=== PATIENT | female | born 1950 | race Caucasian/White ===

== ENCOUNTER → 2018-02-05 | Outpatient (CLI) | payer OTHER | LOC: M PLARAD 14:23 | DX: R91.1 Solitary pulmonary nodule (principal) | CPT/HCPCS: 78815 ==

== ENCOUNTER → 2018-02-07 | Outpatient (REF) | payer OTHER | LOC: M LAB REF 13:15 | DX: H02.834 Dermatochalasis of left upper eyelid (principal); H02.831 Dermatochalasis of right upper eyelid | CPT/HCPCS: 88302 ==

== ENCOUNTER → 2021-10-16 | Outpatient (REF) | payer MEDICARE ==
[~2021-10-16] MED LIST: ALDA25TA2 PO; ALPH600C PO; ANOR1AER INH; ASPI-546 PO; ATEN100T; ATEN50TA2 PO; ATOR1TAB21 PO; CALC500T21 PO; CALC600T31 PO; CARV6.25 PO; CHLO125TA PO; D3 A1000 PO; DILT1CAP5; DILT1CAP5 PO; FARX1TAB3 PO; GABA600T4; GABA600T4 PO; GLIP10TA6 PO; HYDR12.55 PO; HYDR50TAB PO; LISI10TA22 PO; LISI40TA4; LISI40TA4 PO; LOVA40TA; LOVA40TA PO; METF-414 PO; METF-838; NAPR-855 PO; OMEP1CAP73 PO; PRIL20TA2; VITA500046 PO
== END ==
LOC: M LAB REF 17:24
PROVIDERS: ATTEND Internal Medicine Nephrology
DX: E83.42 Hypomagnesemia (principal)

== ENCOUNTER → 2023-02-01 | Outpatient (CLI) | payer MEDICARE ==
[~2023-02-01] MED LIST changes: +AMLO2.5T3 PO; +ATOR40TA75 PO; +CALCTAB89 PO; +CARV25TA PO; +ERGO500029 PO; +GABA-282 PO; +HOME MED LIST COMPLETE! XX SCH; +LIDOCAINE 1% MDV 20ML VIAL As Ordered ONE; +LISI20TA33 PO; +METF-838 PO; +NOXI1TAB PO; +ONDA4TAB6 SL; +OXYC1TAB23 PO; +PIOG1TAB36 PO; +SPIR-10 PO
[2023-02-01 12:05] VITALS: BP 116/51
== END ==
LOC: M IRPRO 07:31
PROVIDERS: ATTEND Specialist
DX: C78.01 Secondary malignant neoplasm of right lung (principal); R91.1 Solitary pulmonary nodule

== ENCOUNTER → 2023-03-11 | Outpatient (CLI) | payer MEDICARE ==
[~2023-03-11] MED LIST changes: -DILT1CAP5; -DILT1CAP5 PO; +DILT240C41; +DILT240C41 PO; -HOME MED LIST COMPLETE! XX SCH; -LIDOCAINE 1% MDV 20ML VIAL As Ordered ONE; +PROC10TA5 PO
== END ==
LOC: M PLARAD 12:35
PROVIDERS: ATTEND Internal Medicine Medical Oncology
DX: R91.8 Other nonspecific abnormal finding of lung field (principal)
CPT/HCPCS: 78815; A9552

== ENCOUNTER → 2023-04-19 | Outpatient (CLI) | payer MEDICARE ==
[~2023-04-19] VITALS: Ht 160 cm; Wt 71.8 kg
[~2023-04-19] MED LIST changes: +AMLO1TAB25 PO; +CALC-211 PO; +CARV12.5 PO; +LEVO1TAB40 PO; +LIDOCAINE 1% MDV 20ML VIAL As Ordered ONE; +MIDAZOLAM INJ 2MG/2ML VIAL As Ordered ONE; +NS 1,000 ML IV SCH; +VANCOMYCIN 1000MG/20ML VIAL As Ordered ONE; +VANCOMYCIN HCL 1,000 MG, VIAL MATE ADAPTER 1 EACH in NS 250 ML IV ONE; +diphenhydrAMINE 50MG/ML VIAL As Ordered ONE; +fentaNYL 100 MCG/2 ML INJECTION As Ordered ONE
[2023-04-19 08:00] VITALS: TEMP 98.4
[2023-04-19 11:00] VITALS: BP 92/53; O2SAT 95
== END ==
LOC: M IRPRO 07:38
PROVIDERS: ATTEND Internal Medicine Medical Oncology
DX: C25.9 Malignant neoplasm of pancreas, unspecified (principal)
CPT/HCPCS: 36561; 99152; 99153; C1769; C1788; C1894; J2250; J3010

== ENCOUNTER 2023-04-23 13:10 | Inpatient (IN) | payer MEDICARE ==
[~2023-04-23] VITALS: Ht 160 cm; Wt 71.8 kg
[2023-04-23] VITALS (10 sets, daily range): BP systolic 94–117; BP diastolic 51–61; TEMP 97.6–97.8; O2SAT 90–100
[~2023-04-23 13:10] MED LIST changes: -AMLO1TAB25 PO; -CALC-211 PO; -CARV12.5 PO; -LEVO1TAB40 PO; -LIDOCAINE 1% MDV 20ML VIAL As Ordered ONE; -MIDAZOLAM INJ 2MG/2ML VIAL As Ordered ONE; -NS 1,000 ML IV SCH; -VANCOMYCIN 1000MG/20ML VIAL As Ordered ONE; -VANCOMYCIN HCL 1,000 MG, VIAL MATE ADAPTER 1 EACH in NS 250 ML IV ONE; -diphenhydrAMINE 50MG/ML VIAL As Ordered ONE; -fentaNYL 100 MCG/2 ML INJECTION As Ordered ONE
[2023-04-23] MEDS ORDERED: NS 2,150 ML in IV 1 EA IV ONE (14:15)
[2023-04-23 14:41] LABS: ABG BASE EXCESS -4.7 (-2.0-2.0); ABG HCO3 19.8 MMOL/L (22.0-26.0); ABG O2 SATURATION 95.5 % (95.0-99.0); ABG PARTIAL PRESSURE CO2 33.9 mmHg (35.0-45.0); ABG PARTIAL PRESSURE O2 88.6 mmHg (75.0-100.0); ABG STANDARD HCO3 20.5 MMOL/L. (22.0-26.0); ABG TOTAL CO2 20.8 MMOL/L (23.0-31.0); ABG pH (ARTERIAL) 7.384 UNITS (7.350-7.450)
[2023-04-23 14:49] LABS: HEMATOCRIT 23.5 % (36.0-47.0); HEMOGLOBIN 7.8 g/dl (12.0-15.5); MEAN CORPUSCULAR HEMOGLOBIN 31.7 pg (27.0-33.0); MEAN CORPUSCULAR HGB CONC 33.2 g/dl (32.0-36.5); MEAN CORPUSCULAR VOLUME 95.5 fl (80.0-96.0); RED BLOOD COUNT 2.46 10^6/uL (4.00-5.40); WHITE BLOOD COUNT 1.2 10^3/uL (4.0-10.0)
[2023-04-23 14:59] LABS: INR 1.05; PARTIAL THROMBOPLASTIN TIME 29.6 SECONDS (24.8-34.2); PROTHROMBIN TIME 13.9 SECONDS (12.5-14.5)
[2023-04-23 15:03] LABS: PLATELET COUNT, AUTOMATED 40 10^3/uL (150-450)
[2023-04-23 15:19] LABS: ALBUMIN 2.5 G/DL (3.2-5.2); ALKALINE PHOSPHATASE 56 U/L (46-116); ALT/SGPT 21 U/L (7.0-40); AMYLASE 35 U/L (30-118); AST/SGOT 11 U/L (<34); BILIRUBIN,DIRECT 0.2 MG/DL (<0.4); BILIRUBIN,TOTAL 0.4 MG/DL (0.3-1.2); BLOOD UREA NITROGEN 39 MG/DL (9-23); CALCIUM LEVEL 8.1 MG/DL (8.3-10.6); CARBON DIOXIDE LEVEL 23 MMOL/L (20-31); CHLORIDE LEVEL 107 MMOL/L (98-107); CK-MB VALUE MASS < 1.0 NG/ML (<3.6); CPK CREATINE PHOSPHOKINASE 32 U/L (34-145); CREATININE FOR GFR 1.95 MG/DL (0.55-1.30); GLOMERULAR FILTRATION RATE 26.8 (>39); GLUCOSE, FASTING 185 MG/DL (74-106); MB/CK RELATIVE INDEX 3.12 (< OR =4); SODIUM LEVEL 139 MMOL/L (136-145); TOTAL PROTEIN 5.2 G/DL (5.7-8.2)
[2023-04-23 15:27] LABS: ANISOCYTOSIS 1+; ATYPICAL LYMPH 4 % (0-5); EOSINOPHILS 3 % (0-3); LYMPHOCYTES 27 % (16-44); MONOCYTES 4 % (0-5); NEUTROPHILS 59 % (28-66); PLATELET ESTIMATE DECREASED (NORMAL)
[2023-04-23 15:28] LABS: RSV AMPLIFICATION NEGATIVE (NEGATIVE)
[2023-04-23] MEDS ORDERED: PIPERACILLIN/TAZOBACTAM SOD 4.5 GM in D5W MINI-BAG PLUS 50 ML IV ONE (15:35)
[2023-04-23 16:12] LABS: APPEARANCE, URINE HAZY (CLEAR); BACTERIA, URINE AUTO 2+ (NEGATIVE); BILIRUBIN, URINE AUTO NEGATIVE (NEGATIVE); BLOOD, URINE BLOOD 1+ (NEGATIVE); COLOR, URINE YELLOW (YELLOW); GLUCOSE, URINE (UA) AUTO NEGATIVE (NEGATIVE); KETONE, URINE AUTO NEGATIVE (NEGATIVE); LEUKOCYTE ESTERASE, URINE AUTO NEGATIVE (NEGATIVE); NITRITE, URINE AUTO NEGATIVE (NEGATIVE); PROTEIN, URINE AUTO NEGATIVE (NEGATIVE); RBC, URINE AUTO 0 /HPF (0-3); SPECIFIC GRAVITY URINE AUTO 1.012 (1.002-1.035); SQUAMOUS EPITHELIAL CELL UR AU 1 /HPF (0-6); UROBILINOGEN, URINE AUTO 0.2 mg/dL (0.0-2.0); WBC, URINE AUTO 2 /HPF (0-3)
[2023-04-23] MEDS ORDERED: NOREPINEPHRINE 4MG IN D5 250ML 4 MG in IV 1 EA IV SCH ×2 (17:10)
[2023-04-23] MEDS ORDERED: ALBUTEROL SULFATE 2.5MG/0.5ML INH NEB SOLN NEB PRN (17:10)
[2023-04-23] MEDS ORDERED: LR 1,000 ML IV ONE ×2 (17:10→17:15)
[2023-04-23] MEDS ORDERED: DEXTROSE 50% 50ML SYRINGE IV PRN (17:15)
[2023-04-23] MEDS ORDERED: PIPERACILLIN/TAZOBACTAM SOD 3.375 GM in D5W MINI-BAG PLUS 50 ML IV SCH (17:15)
[2023-04-23] MEDS ORDERED: GLUCOSE 4GM CHEW TABLET PO PRN (17:15)
[2023-04-23] MEDS ORDERED: GLUCAGON INJ 1MG VIAL SC PRN (17:15)
[2023-04-23] MEDS ORDERED: CARV12.5 PO (17:49)
[2023-04-23] MEDS ORDERED: CALC-211 PO (17:49)
[2023-04-23] MEDS ORDERED: HOME MED LIST COMPLETE! XX SCH (17:55)
[2023-04-23] MEDS ORDERED: SODIUM CHLORIDE 0.9% INJ 10 ML SYR IV PRN (18:35)
[2023-04-23] MEDS: HYDROCORTISONE 100MG/2ML VIAL IV SCH (22:00)
[2023-04-23] MEDS: PIPERACILLIN/TAZOBACTAM SOD 4.5 GM in D5W MINI-BAG PLUS 50 ML IV SCH (23:57)
[2023-04-24] VITALS (23 sets, daily range): BP systolic 99–148; BP diastolic 51–74; TEMP 97.6–99.3; O2SAT 93–98
[2023-04-24] MEDS: HYDROCORTISONE 100MG/2ML VIAL IV SCH ×2 (01:05→07:44)
[2023-04-24 04:27] LABS: HEMOGLOBIN 7.7 g/dl (12.0-15.5); LYMPH # 0.2 10^3/uL (1.5-5.0); LYMPH % 18.4 % (24.0-44.0); MEAN CORPUSCULAR HEMOGLOBIN 32.1 pg (27.0-33.0); MEAN CORPUSCULAR HGB CONC 33.5 g/dl (32.0-36.5); MEAN CORPUSCULAR VOLUME 95.8 fl (80.0-96.0); MONO # 0.1 10^3/uL (0.0-0.8); MONO % 9.2 % (2.0-8.0); NEUTROPHILS % 65.3 % (36.0-66.0)
[2023-04-24 04:29] LABS: NEUTROPHILS # 0.6 10^3/uL (1.5-8.5); PLATELET COUNT, AUTOMATED 32 10^3/uL (150-450)
[2023-04-24 04:36] LABS: INR 1.05; PROTHROMBIN TIME 13.9 SECONDS (12.5-14.5)
[2023-04-24 04:55] LABS: ALBUMIN 2.3 G/DL (3.2-5.2); BILIRUBIN,TOTAL 0.3 MG/DL (0.3-1.2); CALCIUM LEVEL 7.7 MG/DL (8.3-10.6); CREATININE FOR GFR 1.34 MG/DL (0.55-1.30); GLOMERULAR FILTRATION RATE 41.3 (>39); MAGNESIUM LEVEL 1.2 MG/DL (1.8-2.4); PHOSPHORUS LEVEL 2.9 MG/DL (2.4-5.1); POTASSIUM SERUM 4.6 MMOL/L (3.5-5.1); TOTAL PROTEIN 4.8 G/DL (5.7-8.2)
[2023-04-24] MEDS: MAG SULF 1GM/100ML (MAG RUN) 1 GM in IV 1 EA IV SCH ×3 (05:35→07:44)
[2023-04-24] MEDS: PIPERACILLIN/TAZOBACTAM SOD 4.5 GM in D5W MINI-BAG PLUS 50 ML IV SCH ×3 (06:18→17:33)
[2023-04-24] MEDS: ADVAIR HFA 230/21MCG INHALER INH SCH ×2 (08:00→20:14)
[2023-04-24] MEDS: SODIUM CHLORIDE 0.9% INJ 10 ML SYR IV SCH (08:22)
[2023-04-24] MEDS ORDERED: PANTOPRAZOLE 40MG VIAL IV SCH (09:00)
[2023-04-24] MEDS ORDERED: PERCOCET 5MG/325MG TAB PO PRN (09:40)
[2023-04-24] MEDS: GABAPENTIN 300 MG CAP PO SCH ×3 (10:11→21:13)
[2023-04-24] MEDS: INSULIN LISPRO (NovoLOG) PER UNIT SC SCH (17:33)
[2023-04-24] MEDS ORDERED: LevoFLOXacin 750 MG TABLET PO SCH (18:00)
[2023-04-24] MEDS ORDERED: ATORVASTATIN 20 MG TAB PO SCH (21:00)
[2023-04-24] MEDS ORDERED: INSULIN LISPRO (NovoLOG) PER UNIT SC SCH (21:00)
[2023-04-24] MEDS ORDERED: ASPIRIN 81MG ENTERIC TABLET PO SCH (21:00)
[2023-04-25 04:28] VITALS: BP 149/65; TEMP 98.1; O2SAT 97
[2023-04-25 05:12] LABS: HEMATOCRIT 23.1 % (36.0-47.0); HEMOGLOBIN 7.8 g/dl (12.0-15.5); MEAN CORPUSCULAR HEMOGLOBIN 31.7 pg (27.0-33.0); MEAN CORPUSCULAR HGB CONC 33.8 g/dl (32.0-36.5); MEAN CORPUSCULAR VOLUME 93.9 fl (80.0-96.0); PLATELET COUNT, AUTOMATED 46 10^3/uL (150-450); RED BLOOD COUNT 2.46 10^6/uL (4.00-5.40); WHITE BLOOD COUNT 2.7 10^3/uL (4.0-10.0)
[2023-04-25 05:28] LABS: ATYPICAL LYMPH 2 % (0-5); EOSINOPHILS 3 % (0-3); LYMPHOCYTES 47 % (16-44); METAMYELOCYTES 1 % (0-0); MONOCYTES 9 % (0-5); NEUTROPHILS 37 % (28-66); PLATELET ESTIMATE DECREASED (NORMAL); POLYCHROMASIA 1+
[2023-04-25 05:44] LABS: CALCIUM LEVEL 8.9 MG/DL (8.3-10.6); CREATININE FOR GFR 1.22 MG/DL (0.55-1.30); POTASSIUM SERUM 3.5 MMOL/L (3.5-5.1)
[2023-04-25 06:58] LABS: MAGNESIUM LEVEL 1.6 MG/DL (1.8-2.4)
[2023-04-25] MEDS: INSULIN LISPRO (NovoLOG) PER UNIT SC SCH (07:30)
[2023-04-25 08:00] VITALS: BP 140/65; TEMP 98; O2SAT 96
[2023-04-25] MEDS: ADVAIR HFA 230/21MCG INHALER INH SCH (08:14)
[2023-04-25] MEDS ORDERED: MAGNESIUM OXIDE 400MG TAB (MAG-OX) PO SCH (09:00)
[2023-04-25] MEDS ORDERED: OMEPRAZOLE 20MG CAP PO SCH (09:00)
[2023-04-25] MEDS: SODIUM CHLORIDE 0.9% INJ 10 ML SYR IV SCH (09:00)
[2023-04-25] MEDS: GABAPENTIN 300 MG CAP PO SCH (09:19)
[2023-04-25] MEDS ORDERED: LEVO1TAB40 PO ×2 (10:35→10:41)
[2023-04-25] MEDS ORDERED: CARV25TA PO (10:37)
[2023-04-25] MEDS ORDERED: AMLO1TAB25 PO (10:38)
[2023-04-28] MEDS ORDERED: VITAMIN D 50,000 UNITS CAPSULE (ERGOCALCIFEROL 1.25MG) PO SCH (09:00)
== END 2023-04-25 11:40 | disposition home or self-care (01) | DRG 871 ==
LOC: M ED 13:10 → M ICU 17:10 → ENRESERV 17:16
PROVIDERS: ADMIT Internal Medicine Critical Care Medicine; ATTEND Student in an Organized Health Care Education/Training Program
DX: A41.9 Sepsis, unspecified organism (principal); R65.21 Severe sepsis with septic shock; R57.1 Hypovolemic shock; D61.810 Antineoplastic chemotherapy induced pancytopenia; N17.9 Acute kidney failure, unspecified; C25.9 Malignant neoplasm of pancreas, unspecified; I10 Essential (primary) hypertension; E55.9 Vitamin D deficiency, unspecified; G89.29 Other chronic pain; E83.42 Hypomagnesemia; J44.9 Chronic obstructive pulmonary disease, unspecified; K21.9 Gastro-esophageal reflux disease without esophagitis; E78.5 Hyperlipidemia, unspecified; E11.9 Type 2 diabetes mellitus without complications; T45.1X5A Adverse effect of antineoplastic and immunosuppressive drugs, initial encounter; Z88.2 Allergy status to sulfonamides; Z88.5 Allergy status to narcotic agent; Z88.1 Allergy status to other antibiotic agents; Z79.82 Long term (current) use of aspirin; Z79.84 Long term (current) use of oral hypoglycemic drugs; Z79.899 Other long term (current) drug therapy

== ENCOUNTER → 2023-07-11 | Outpatient (CLI) | payer MEDICARE, MEDICAID ==
[~2023-07-11] MED LIST changes: +AMLO1TAB25 PO; +AMLO2.5T3; +ANOR1AER PO; +CALC-211 PO; +CARV12.5 PO; +CHOL50003 PO; +LEVO1TAB40 PO; +SPIR-10
== END ==
LOC: M RAD 13:32
PROVIDERS: ATTEND Internal Medicine Medical Oncology
DX: M79.621 Pain in right upper arm (principal)

== ENCOUNTER → 2023-10-15 | Outpatient (REF) | payer MEDICARE, MEDICAID ==
[~2023-10-15] MED LIST changes: +CIPR-249 PO; +CIPR500T39; +DIFI200T PO; +METR-265
== END ==
LOC: M LAB REF 12:05
PROVIDERS: ATTEND Internal Medicine Medical Oncology
DX: A04.72 Enterocolitis due to Clostridium difficile, not specified as recurrent (principal)

== ENCOUNTER → 2023-11-22 | Outpatient (REF) | payer MEDICARE, MEDICAID ==
[~2023-11-22] MED LIST changes: +POTA8CAP10 PO; -SPIR-10
== END ==
LOC: M LAB REF 10:48
PROVIDERS: ATTEND Internal Medicine Medical Oncology
DX: A04.72 Enterocolitis due to Clostridium difficile, not specified as recurrent (principal); R19.7 Diarrhea, unspecified

== ENCOUNTER → 2023-12-19 | Outpatient (REF) | payer MEDICARE, MEDICAID | LOC: M SFHCPLAZ 13:32 | PROVIDERS: ATTEND Internal Medicine Infectious Disease | DX: A04.71 Enterocolitis due to Clostridium difficile, recurrent (principal) ==

== ENCOUNTER → 2024-01-17 | Outpatient (REF) | payer MEDICARE, MEDICAID ==
[~2024-01-17] MED LIST changes: +FAMO40TA3 PO
== END ==
LOC: M LAB REF 09:43
PROVIDERS: ATTEND Internal Medicine Medical Oncology
DX: R19.7 Diarrhea, unspecified (principal); A04.72 Enterocolitis due to Clostridium difficile, not specified as recurrent

== ENCOUNTER → 2024-09-08 | Outpatient (CLI) | payer MEDICARE ==
[~2024-09-08] MED LIST changes: +BASA100I SC; +GABA-1172 PO; +GABA-1490; +GABA-1490 PO; -GABA-282 PO; -GABA600T4; -GABA600T4 PO; +GLIP10TA15 PO; -GLIP10TA6 PO; +MAGICMW SSP; +MORP20SO PO; +ONDA-282 SL; -ONDA4TAB6 SL; +PERCOCET PO; +POTA-298 PO; +TORS20TA2 PO
== END ==
LOC: M PLARAD 09:44
PROVIDERS: ATTEND Internal Medicine Medical Oncology
DX: C25.8 Malignant neoplasm of overlapping sites of pancreas (principal)
CPT/HCPCS: 78815; A9552

== ENCOUNTER → 2025-01-05 | Outpatient (CLI) | payer MEDICARE, MEDICAID ==
[~2025-01-05] MED LIST changes: +ORAL0.1P MT; +XARE15TA PO; +XARE20TA PO
== END ==
LOC: M PLARAD 12:48
PROVIDERS: ATTEND Nurse Practitioner Women's Health
DX: C25.9 Malignant neoplasm of pancreas, unspecified (principal); C78.01 Secondary malignant neoplasm of right lung; C78.02 Secondary malignant neoplasm of left lung
CPT/HCPCS: 78815; A9552

== ENCOUNTER → 2025-01-28 | Outpatient (CLI) | payer MEDICARE, MEDICAID | LOC: M ONCR 07:36 | PROVIDERS: ATTEND General Practice | DX: C25.2 Malignant neoplasm of tail of pancreas (principal); C78.01 Secondary malignant neoplasm of right lung; C78.02 Secondary malignant neoplasm of left lung; G89.3 Neoplasm related pain (acute) (chronic); Z92.21 Personal history of antineoplastic chemotherapy; Z85.41 Personal history of malignant neoplasm of cervix uteri; Z90.49 Acquired absence of other specified parts of digestive tract; Z90.710 Acquired absence of both cervix and uterus; Z80.0 Family history of malignant neoplasm of digestive organs; Z87.891 Personal history of nicotine dependence; Z88.1 Allergy status to other antibiotic agents; Z88.2 Allergy status to sulfonamides; Z88.5 Allergy status to narcotic agent; Z79.01 Long term (current) use of anticoagulants; Z79.4 Long term (current) use of insulin; Z79.82 Long term (current) use of aspirin; Z79.84 Long term (current) use of oral hypoglycemic drugs; Z79.899 Other long term (current) drug therapy ==

== ENCOUNTER 2025-02-05 08:08 | Outpatient (RCR) | payer MEDICARE, MEDICAID | END 2025-02-08 | LOC: M ONCR 08:08 | PROVIDERS: ATTEND General Practice | DX: Z51.0 Encounter for antineoplastic radiation therapy (principal); C25.2 Malignant neoplasm of tail of pancreas ==

== ENCOUNTER 2025-03-01 13:15 | Outpatient (RCR) | payer MEDICARE, MEDICAID ==
[~2025-03-01 13:15] MED LIST changes: +CLOT1CRE56 TOP; +MUPI2OI TOP
== END 2025-03-10 ==
LOC: M ONCR 13:15
PROVIDERS: ATTEND General Practice
DX: Z51.0 Encounter for antineoplastic radiation therapy (principal); C25.2 Malignant neoplasm of tail of pancreas

== ENCOUNTER → 2025-03-24 | Outpatient (CLI) | payer MEDICARE, MEDICAID ==
[~2025-03-24] VITALS: Ht 160 cm; Wt 65.4 kg
[~2025-03-24] MED LIST changes: -ALPH600C PO; +ALPH600C2 PO; +DULO30CA9 PO; +OXYC10TA12 PO
[2025-03-24 10:48] VITALS: BP 146/87; O2SAT 96
== END ==
LOC: M PAL 10:30
PROVIDERS: ATTEND Physician Assistant
DX: Z51.5 Encounter for palliative care (principal); Z66 Do not resuscitate; C25.9 Malignant neoplasm of pancreas, unspecified; C78.00 Secondary malignant neoplasm of unspecified lung; R52 Pain, unspecified; Z79.891 Long term (current) use of opiate analgesic; Z88.2 Allergy status to sulfonamides; Z88.5 Allergy status to narcotic agent; Z79.899 Other long term (current) drug therapy; Z79.85 Long-term (current) use of injectable non-insulin antidiabetic drugs

== ENCOUNTER → 2025-06-04 | Outpatient (CLI) | payer MEDICARE, MEDICAID ==
[~2025-06-04] MED LIST changes: +CEPH500T PO; +LISI40TA10; +LISI40TA10 PO; -LISI40TA4; -LISI40TA4 PO; +SENN-186 PO
== END ==
LOC: M ONCR 10:01
PROVIDERS: ATTEND General Practice
DX: C25.2 Malignant neoplasm of tail of pancreas (principal); C78.00 Secondary malignant neoplasm of unspecified lung; E09.9 Drug or chemical induced diabetes mellitus without complications; Z79.01 Long term (current) use of anticoagulants; Z79.4 Long term (current) use of insulin; Z79.82 Long term (current) use of aspirin; Z79.891 Long term (current) use of opiate analgesic; Z79.899 Other long term (current) drug therapy; Z87.891 Personal history of nicotine dependence; Z88.1 Allergy status to other antibiotic agents; Z88.2 Allergy status to sulfonamides; Z88.5 Allergy status to narcotic agent; Z92.21 Personal history of antineoplastic chemotherapy; Z92.3 Personal history of irradiation

== ENCOUNTER → 2025-06-07 | Outpatient (CLI) | payer MEDICARE, MEDICAID | LOC: M PAL 12:54 | PROVIDERS: ATTEND Physician Assistant | DX: Z51.5 Encounter for palliative care (principal); Z66 Do not resuscitate; C78.00 Secondary malignant neoplasm of unspecified lung; Z79.891 Long term (current) use of opiate analgesic; Z79.82 Long term (current) use of aspirin; Z79.02 Long term (current) use of antithrombotics/antiplatelets; Z79.899 Other long term (current) drug therapy; Z88.2 Allergy status to sulfonamides; Z88.5 Allergy status to narcotic agent ==

== ENCOUNTER → 2025-06-15 | Outpatient (CLI) | payer MEDICARE, MEDICAID | LOC: M PLARAD 14:31 | PROVIDERS: ATTEND General Practice | DX: C25.2 Malignant neoplasm of tail of pancreas (principal) | CPT/HCPCS: 78815; A9552 ==

== ENCOUNTER → 2025-06-30 | Outpatient (CLI) | payer MEDICARE, MEDICAID ==
[~2025-06-30] VITALS: Ht 160 cm; Wt 62.0 kg
[2025-06-30 11:43] VITALS: BP 148/89; O2SAT 94
== END ==
LOC: M PAL 11:28
PROVIDERS: ATTEND Physician Assistant
DX: Z51.5 Encounter for palliative care (principal); Z66 Do not resuscitate; C25.9 Malignant neoplasm of pancreas, unspecified; C78.00 Secondary malignant neoplasm of unspecified lung; Z79.891 Long term (current) use of opiate analgesic; Z88.2 Allergy status to sulfonamides; Z88.5 Allergy status to narcotic agent; Z79.899 Other long term (current) drug therapy; Z79.82 Long term (current) use of aspirin; Z79.02 Long term (current) use of antithrombotics/antiplatelets

== ENCOUNTER 2025-07-01 07:56 | Outpatient (RCR) | payer MEDICARE, MEDICAID ==
[2023-01-18 09:50] VITALS: BP 102/76; O2SAT 97
[2023-01-18 11:35] LABS: BASO # 0.0 10^3/uL (0.0-0.2); BASO % 0.6 % (0.0-1.0); EOS # 0.1 10^3/uL (0.0-0.5); EOS % 1.4 % (0.0-3.0); LYMPH # 1.3 10^3/uL (1.5-5.0); LYMPH % 18.4 % (24.0-44.0); MONO # 0.6 10^3/uL (0.0-0.8); MONO % 8.0 % (2.0-8.0); NEUTROPHILS # 5.1 10^3/uL (1.5-8.5); NEUTROPHILS % 70.9 % (36.0-66.0); PLATELET COUNT, AUTOMATED 162 10^3/uL (150-450)
[2023-01-18 11:45] LABS: INR 0.97
[2023-01-18 12:14] LABS: ALT/SGPT 18.0 U/L (7.0-40); AST/SGOT 14.0 U/L (<34); CALCIUM LEVEL 9.5 MG/DL (8.3-10.6); CARBON DIOXIDE LEVEL 29.0 MMOL/L (20-31); CHLORIDE LEVEL 103.0 MMOL/L (98-107); CREATININE FOR GFR 1.63 MG/DL (0.55-1.30); GLOMERULAR FILTRATION RATE 32.9 (>39); POTASSIUM SERUM 4.8 MMOL/L (3.5-5.1); SODIUM LEVEL 138.0 MMOL/L (136-145)
[2023-01-18 12:22] LABS: CA19-9 TUMOR MARKER,CARBOHYDRA 97.7 U/ML (<35.0)
[2023-02-15 13:53] VITALS: BP 132/66; O2SAT 97
[2023-02-15 15:48] LABS: CA19-9 TUMOR MARKER,CARBOHYDRA 111.9 U/ML (<35.0)
[2023-03-04 10:10] VITALS: BP 133/66; O2SAT 99
[2023-03-04 10:19] LABS: BASO # 0.0 10^3/uL (0.0-0.2); BASO % 0.6 % (0.0-1.0); EOS # 0.1 10^3/uL (0.0-0.5); EOS % 1.5 % (0.0-3.0); LYMPH # 1.1 10^3/uL (1.5-5.0); LYMPH % 15.9 % (24.0-44.0); MONO # 0.6 10^3/uL (0.0-0.8); MONO % 8.3 % (2.0-8.0); NEUTROPHILS # 4.9 10^3/uL (1.5-8.5); NEUTROPHILS % 73.1 % (36.0-66.0); PLATELET COUNT, AUTOMATED 126 10^3/uL (150-450)
[2023-03-04 10:40] LABS: ALT/SGPT 17.0 U/L (7.0-40); AST/SGOT 12.0 U/L (<34); CALCIUM LEVEL 9.1 MG/DL (8.3-10.6); CARBON DIOXIDE LEVEL 29.0 MMOL/L (20-31); CHLORIDE LEVEL 106.0 MMOL/L (98-107); CREATININE FOR GFR 1.29 MG/DL (0.55-1.30); GLOMERULAR FILTRATION RATE 43.1 (>39); POTASSIUM SERUM 4.6 MMOL/L (3.5-5.1); SODIUM LEVEL 138.0 MMOL/L (136-145)
[2023-03-12 11:27] LABS: BASO # 0.0 10^3/uL (0.0-0.2); BASO % 0.5 % (0.0-1.0); EOS # 0.1 10^3/uL (0.0-0.5); EOS % 1.3 % (0.0-3.0); LYMPH # 1.3 10^3/uL (1.5-5.0); LYMPH % 20.6 % (24.0-44.0); MONO # 0.5 10^3/uL (0.0-0.8); MONO % 7.5 % (2.0-8.0); NEUTROPHILS # 4.3 10^3/uL (1.5-8.5); NEUTROPHILS % 69.6 % (36.0-66.0); PLATELET COUNT, AUTOMATED 129 10^3/uL (150-450)
[2023-03-12 11:30] VITALS: BP 125/71; O2SAT 100
[2023-03-12 12:14] LABS: ALT/SGPT 15.0 U/L (7.0-40); AST/SGOT 13.0 U/L (<34); CALCIUM LEVEL 9.2 MG/DL (8.3-10.6); CARBON DIOXIDE LEVEL 27.0 MMOL/L (20-31); CHLORIDE LEVEL 109.0 MMOL/L (98-107); CREATININE FOR GFR 1.2 MG/DL (0.55-1.30); GLOMERULAR FILTRATION RATE 46.9 (>39); POTASSIUM SERUM 4.6 MMOL/L (3.5-5.1); SODIUM LEVEL 143.0 MMOL/L (136-145)
[2023-03-12] MEDS: PROCHLORPERAZINE 5MG TAB PO SCH (12:49)
[2023-03-12] MEDS: PACLITAXEL PROTEIN BOUND IV SCH (14:04)
[2023-03-12] MEDS: NS IV SCH (14:41)
[2023-03-12] MEDS: GEMCITABINE IV SCH (14:41)
[2023-03-12] MEDS: SODIUM CHLORIDE 0.9% INJ 10 ML SYR IV PRN (15:16)
[2023-03-18 14:28] LABS: BASO # 0.0 10^3/uL (0.0-0.2); BASO % 1.2 % (0.0-1.0); EOS # 0.0 10^3/uL (0.0-0.5); EOS % 1.2 % (0.0-3.0); LYMPH # 0.7 10^3/uL (1.5-5.0); LYMPH % 42.2 % (24.0-44.0); MONO # 0.1 10^3/uL (0.0-0.8); MONO % 4.0 % (2.0-8.0); NEUTROPHILS % 50.8 % (36.0-66.0); PLATELET COUNT, AUTOMATED 113 10^3/uL (150-450)
[2023-03-18 14:39] LABS: NEUTROPHILS # 0.9 10^3/uL (1.5-8.5)
[2023-03-18 14:56] LABS: ALT/SGPT 17 U/L (7.0-40); AST/SGOT < 8 U/L (<34); CALCIUM LEVEL 8.7 MG/DL (8.3-10.6); CARBON DIOXIDE LEVEL 25 MMOL/L (20-31); CHLORIDE LEVEL 106 MMOL/L (98-107); CREATININE FOR GFR 1.30 MG/DL (0.55-1.30); GLOMERULAR FILTRATION RATE 42.7 (>39); POTASSIUM SERUM 3.9 MMOL/L (3.5-5.1); SODIUM LEVEL 139 MMOL/L (136-145)
[2023-03-19 11:29] VITALS: BP 126/63; O2SAT 100
[2023-03-19 12:24] LABS: BASO # 0.0 10^3/uL (0.0-0.2); BASO % 1.1 % (0.0-1.0); EOS # 0.1 10^3/uL (0.0-0.5); EOS % 1.8 % (0.0-3.0); LYMPH # 0.9 10^3/uL (1.5-5.0); LYMPH % 32.8 % (24.0-44.0); MONO # 0.2 10^3/uL (0.0-0.8); MONO % 5.5 % (2.0-8.0); NEUTROPHILS # 1.6 10^3/uL (1.5-8.5); NEUTROPHILS % 57.7 % (36.0-66.0)
[2023-03-19 12:53] LABS: PLATELET COUNT, AUTOMATED 94 10^3/uL (150-450)
[2023-03-21 08:25] VITALS: BP 102/58; O2SAT 99
[2023-03-21 08:27] LABS: BASO # 0.0 10^3/uL (0.0-0.2); BASO % 0.9 % (0.0-1.0); EOS # 0.0 10^3/uL (0.0-0.5); EOS % 1.2 % (0.0-3.0); LYMPH # 0.9 10^3/uL (1.5-5.0); LYMPH % 26.0 % (24.0-44.0); MONO # 0.3 10^3/uL (0.0-0.8); MONO % 9.8 % (2.0-8.0); NEUTROPHILS # 2.1 10^3/uL (1.5-8.5); NEUTROPHILS % 59.2 % (36.0-66.0)
[2023-03-21 09:05] LABS: PLATELET COUNT, AUTOMATED 91 10^3/uL (150-450)
[2023-03-26 11:52] LABS: BASO # 0.0 10^3/uL (0.0-0.2); BASO % 0.8 % (0.0-1.0); EOS # 0.1 10^3/uL (0.0-0.5); EOS % 2.0 % (0.0-3.0); LYMPH # 1.1 10^3/uL (1.5-5.0); LYMPH % 27.2 % (24.0-44.0); MONO # 0.4 10^3/uL (0.0-0.8); MONO % 11.2 % (2.0-8.0); NEUTROPHILS # 2.3 10^3/uL (1.5-8.5); NEUTROPHILS % 57.3 % (36.0-66.0); PLATELET COUNT, AUTOMATED 186 10^3/uL (150-450)
[2023-03-26 12:16] VITALS: BP 137/66; O2SAT 100
[2023-03-26] MEDS: PROCHLORPERAZINE 5MG TAB PO SCH (12:24)
[2023-03-26] MEDS: PACLITAXEL PROTEIN BOUND IV SCH (13:53)
[2023-03-26] MEDS: GEMCITABINE IV SCH (14:35)
[2023-03-26] MEDS: NS IV SCH (14:35)
[2023-03-26] MEDS: SODIUM CHLORIDE 0.9% INJ 10 ML SYR IV PRN (15:13)
[2023-04-09 10:25] LABS: BASO # 0.0 10^3/uL (0.0-0.2); BASO % 0.4 % (0.0-1.0); EOS # 0.1 10^3/uL (0.0-0.5); EOS % 2.2 % (0.0-3.0); LYMPH # 0.8 10^3/uL (1.5-5.0); LYMPH % 15.3 % (24.0-44.0); MONO # 0.5 10^3/uL (0.0-0.8); MONO % 9.3 % (2.0-8.0); NEUTROPHILS # 3.9 10^3/uL (1.5-8.5); NEUTROPHILS % 72.1 % (36.0-66.0); PLATELET COUNT, AUTOMATED 102 10^3/uL (150-450)
[2023-04-09 10:59] LABS: ALT/SGPT 17.0 U/L (7.0-40); AST/SGOT 13.0 U/L (<34); CALCIUM LEVEL 8.4 MG/DL (8.3-10.6); CARBON DIOXIDE LEVEL 26.0 MMOL/L (20-31); CHLORIDE LEVEL 110.0 MMOL/L (98-107); CREATININE FOR GFR 1.17 MG/DL (0.55-1.30); GLOMERULAR FILTRATION RATE 48.3 (>39); POTASSIUM SERUM 4.4 MMOL/L (3.5-5.1); SODIUM LEVEL 143.0 MMOL/L (136-145)
[2023-04-09 11:14] VITALS: BP 139/70; O2SAT 99
[2023-04-09 12:42] LABS: CA19-9 TUMOR MARKER,CARBOHYDRA 100.9 U/ML (<35.0)
[2023-04-09] MEDS: PROCHLORPERAZINE 5MG TAB PO SCH (12:47)
[2023-04-09] MEDS: PACLITAXEL PROTEIN BOUND IV SCH (13:54)
[2023-04-09] MEDS: NS IV SCH (15:02)
[2023-04-09] MEDS: GEMCITABINE IV SCH (15:02)
[2023-04-16 11:08] VITALS: BP 123/67; O2SAT 100
[2023-04-16 11:10] LABS: BASO # 0.0 10^3/uL (0.0-0.2); BASO % 0.7 % (0.0-1.0); EOS # 0.0 10^3/uL (0.0-0.5); EOS % 0.3 % (0.0-3.0); LYMPH # 0.5 10^3/uL (1.5-5.0); LYMPH % 15.6 % (24.0-44.0); MONO # 0.1 10^3/uL (0.0-0.8); MONO % 4.8 % (2.0-8.0); NEUTROPHILS # 2.2 10^3/uL (1.5-8.5); NEUTROPHILS % 77.6 % (36.0-66.0); PLATELET COUNT, AUTOMATED 126 10^3/uL (150-450)
[2023-04-16 11:25] LABS: INR 0.97
[2023-04-16 11:39] LABS: ALT/SGPT 20.0 U/L (7.0-40); AST/SGOT 12.0 U/L (<34); CALCIUM LEVEL 9.1 MG/DL (8.3-10.6); CARBON DIOXIDE LEVEL 27.0 MMOL/L (20-31); CHLORIDE LEVEL 108.0 MMOL/L (98-107); CREATININE FOR GFR 1.16 MG/DL (0.55-1.30); GLOMERULAR FILTRATION RATE 48.8 (>39); POTASSIUM SERUM 4.7 MMOL/L (3.5-5.1); SODIUM LEVEL 140.0 MMOL/L (136-145)
[2023-04-16] MEDS: PROCHLORPERAZINE 5MG TAB PO SCH (12:30)
[2023-04-16] MEDS: PACLITAXEL PROTEIN BOUND IV SCH (13:14)
[2023-04-16] MEDS: NS IV SCH (14:16)
[2023-04-16] MEDS: GEMCITABINE IV SCH (14:16)
[2023-04-23 10:40] VITALS: BP 72/44; O2SAT 100
[2023-04-23 11:08] LABS: BASO # 0.0 10^3/uL (0.0-0.2); BASO % 0.9 % (0.0-1.0); EOS # 0.0 10^3/uL (0.0-0.5); EOS % 0.9 % (0.0-3.0); LYMPH # 0.3 10^3/uL (1.5-5.0); LYMPH % 25.5 % (24.0-44.0); MONO # 0.1 10^3/uL (0.0-0.8); MONO % 9.1 % (2.0-8.0); NEUTROPHILS % 61.8 % (36.0-66.0)
[2023-04-23] MEDS: NS 500 ML IV ONE (11:20)
[2023-04-23 11:30] VITALS: BP 62/38; O2SAT 96
[2023-04-23 11:38] LABS: NEUTROPHILS # 0.7 10^3/uL (1.5-8.5)
[2023-04-23 11:39] LABS: PLATELET COUNT, AUTOMATED 46 10^3/uL (150-450)
[2023-04-23 12:21] LABS: ALT/SGPT 12.0 U/L (7.0-40); AST/SGOT 13.0 U/L (<34); CALCIUM LEVEL 7.9 MG/DL (8.3-10.6); CARBON DIOXIDE LEVEL 23.0 MMOL/L (20-31); CHLORIDE LEVEL 107.0 MMOL/L (98-107); CREATININE FOR GFR 1.89 MG/DL (0.55-1.30); GLOMERULAR FILTRATION RATE 27.8 (>39); POTASSIUM SERUM 4.1 MMOL/L (3.5-5.1); SODIUM LEVEL 137.0 MMOL/L (136-145)
[2023-04-23 12:30] VITALS: BP 62/38
[2023-05-07 08:45] VITALS: BP 140/67; O2SAT 100
[2023-05-07 08:49] LABS: BASO # 0.1 10^3/uL (0.0-0.2); BASO % 1.2 % (0.0-1.0); EOS # 0.1 10^3/uL (0.0-0.5); EOS % 1.3 % (0.0-3.0); LYMPH # 1.0 10^3/uL (1.5-5.0); LYMPH % 11.2 % (24.0-44.0); MONO # 1.1 10^3/uL (0.0-0.8); MONO % 12.7 % (2.0-8.0); NEUTROPHILS # 5.8 10^3/uL (1.5-8.5); NEUTROPHILS % 67.7 % (36.0-66.0); PLATELET COUNT, AUTOMATED 292 10^3/uL (150-450)
[2023-05-07 09:24] LABS: VITAMIN B12 LEVEL 434.0 PG/ML (211-911)
[2023-05-07 09:41] LABS: CA19-9 TUMOR MARKER,CARBOHYDRA 58.8 U/ML (<35.0)
[2023-05-07 09:52] LABS: ALT/SGPT 16.0 U/L (7.0-40); AST/SGOT 17.0 U/L (<34); CALCIUM LEVEL 8.6 MG/DL (8.3-10.6); CARBON DIOXIDE LEVEL 26.0 MMOL/L (20-31); CHLORIDE LEVEL 108.0 MMOL/L (98-107); CREATININE FOR GFR 0.97 MG/DL (0.55-1.30); GLOMERULAR FILTRATION RATE 59.9 (>39); POTASSIUM SERUM 4.4 MMOL/L (3.5-5.1); SODIUM LEVEL 139.0 MMOL/L (136-145)
[2023-05-07] MEDS: PROCHLORPERAZINE 5MG TAB PO SCH (10:18)
[2023-05-07] MEDS: PACLITAXEL PROTEIN BOUND IV SCH (11:25)
[2023-05-07] MEDS: GEMCITABINE IV SCH (12:08)
[2023-05-07] MEDS: NS IV SCH (12:08)
[2023-05-07] MEDS: SODIUM CHLORIDE 0.9% INJ 10 ML SYR IV PRN (12:47)
[2023-05-15 12:15] VITALS: BP 141/72; O2SAT 99
[2023-05-15 12:46] LABS: BASO # 0.1 10^3/uL (0.0-0.2); BASO % 1.4 % (0.0-1.0); EOS # 0.1 10^3/uL (0.0-0.5); EOS % 1.6 % (0.0-3.0); LYMPH # 1.1 10^3/uL (1.5-5.0); LYMPH % 21.4 % (24.0-44.0); MONO # 0.6 10^3/uL (0.0-0.8); MONO % 11.0 % (2.0-8.0); NEUTROPHILS # 3.1 10^3/uL (1.5-8.5); NEUTROPHILS % 60.1 % (36.0-66.0); PLATELET COUNT, AUTOMATED 132 10^3/uL (150-450)
[2023-05-15 13:10] LABS: ALT/SGPT 20.0 U/L (7.0-40); AST/SGOT 14.0 U/L (<34); CALCIUM LEVEL 9.4 MG/DL (8.3-10.6); CARBON DIOXIDE LEVEL 24.0 MMOL/L (20-31); CHLORIDE LEVEL 108.0 MMOL/L (98-107); CREATININE FOR GFR 1.03 MG/DL (0.55-1.30); GLOMERULAR FILTRATION RATE 55.9 (>39); POTASSIUM SERUM 4.3 MMOL/L (3.5-5.1); SODIUM LEVEL 139.0 MMOL/L (136-145)
[2023-05-15] MEDS: PROCHLORPERAZINE 5MG TAB PO SCH (13:53)
[2023-05-15] MEDS: PACLITAXEL PROTEIN BOUND IV SCH (15:04)
[2023-05-15] MEDS: GEMCITABINE IV SCH (15:44)
[2023-05-15] MEDS: NS IV SCH (15:44)
[2023-05-15] MEDS: SODIUM CHLORIDE 0.9% INJ 10 ML SYR IV PRN (16:16)
[2023-05-21 10:40] VITALS: BP 102/64; O2SAT 98
[2023-05-21 11:00] LABS: BASO # 0.0 10^3/uL (0.0-0.2); BASO % 0.4 % (0.0-1.0); EOS # 0.1 10^3/uL (0.0-0.5); EOS % 1.3 % (0.0-3.0); LYMPH # 0.7 10^3/uL (1.5-5.0); LYMPH % 14.0 % (24.0-44.0); MONO # 0.1 10^3/uL (0.0-0.8); MONO % 2.1 % (2.0-8.0); NEUTROPHILS # 3.8 10^3/uL (1.5-8.5); NEUTROPHILS % 81.6 % (36.0-66.0); PLATELET COUNT, AUTOMATED 114 10^3/uL (150-450)
[2023-05-21 11:31] LABS: ALT/SGPT 33.0 U/L (7.0-40); AST/SGOT 19.0 U/L (<34); CALCIUM LEVEL 9.6 MG/DL (8.3-10.6); CARBON DIOXIDE LEVEL 27.0 MMOL/L (20-31); CHLORIDE LEVEL 100.0 MMOL/L (98-107); CREATININE FOR GFR 1.35 MG/DL (0.55-1.30); GLOMERULAR FILTRATION RATE 40.9 (>39); POTASSIUM SERUM 4.5 MMOL/L (3.5-5.1); SODIUM LEVEL 135.0 MMOL/L (136-145)
[2023-05-21] MEDS: PROCHLORPERAZINE 5MG TAB PO SCH (12:13)
[2023-05-21] MEDS: PACLITAXEL PROTEIN BOUND IV SCH (13:22)
[2023-05-21] MEDS: NS IV SCH (14:13)
[2023-05-21] MEDS: GEMCITABINE IV SCH (14:13)
[2023-05-21] MEDS: SODIUM CHLORIDE 0.9% INJ 10 ML SYR IV PRN (14:45)
[2023-05-28 14:00] VITALS: BP 144/70; O2SAT 97
[2023-05-28] MEDS: NS (Normal Saline) 0.9% 1,000 ML IV ONE (14:42)
[2023-05-28 14:49] LABS: BASO # 0.0 10^3/uL (0.0-0.2); BASO % 0.2 % (0.0-1.0); EOS # 0.0 10^3/uL (0.0-0.5); EOS % 0.6 % (0.0-3.0); LYMPH # 0.4 10^3/uL (1.5-5.0); LYMPH % 7.9 % (24.0-44.0); MONO # 0.4 10^3/uL (0.0-0.8); MONO % 7.2 % (2.0-8.0); NEUTROPHILS # 3.5 10^3/uL (1.5-8.5); NEUTROPHILS % 65.1 % (36.0-66.0)
[2023-05-28 15:20] LABS: PLATELET COUNT, AUTOMATED 65 10^3/uL (150-450)
[2023-05-28 15:30] VITALS: BP 114/65; O2SAT 99
[2023-05-28 15:32] LABS: ALT/SGPT 21.0 U/L (7.0-40); AST/SGOT 19.0 U/L (<34); CALCIUM LEVEL 8.1 MG/DL (8.3-10.6); CARBON DIOXIDE LEVEL 24.0 MMOL/L (20-31); CHLORIDE LEVEL 96.0 MMOL/L (98-107); CREATININE FOR GFR 1.5 MG/DL (0.55-1.30); GLOMERULAR FILTRATION RATE 36.2 (>39); POTASSIUM SERUM 3.6 MMOL/L (3.5-5.1); SODIUM LEVEL 131.0 MMOL/L (136-145)
[2023-05-28] MEDS: MAG SULF 1GM/100ML (MAG RUN) 100 ML IV ONE (15:53)
[2023-05-28] MEDS: SODIUM CHLORIDE 0.9% INJ 10 ML SYR IV PRN (16:40)
[2023-05-29] MEDS: MAG SULF 1GM/100ML (MAG RUN) 100 ML IV SCH (08:15)
[2023-05-29 08:20] VITALS: BP 102/74; O2SAT 100
[2023-06-04 07:58] LABS: BASO # 0.1 10^3/uL (0.0-0.2); BASO % 1.1 % (0.0-1.0); EOS # 0.2 10^3/uL (0.0-0.5); EOS % 3.2 % (0.0-3.0); LYMPH # 0.7 10^3/uL (1.5-5.0); LYMPH % 15.4 % (24.0-44.0); MONO # 0.6 10^3/uL (0.0-0.8); MONO % 13.1 % (2.0-8.0); NEUTROPHILS # 2.9 10^3/uL (1.5-8.5); NEUTROPHILS % 60.7 % (36.0-66.0); PLATELET COUNT, AUTOMATED 276 10^3/uL (150-450)
[2023-06-04 08:03] VITALS: BP 158/88; O2SAT 99
[2023-06-04 08:21] LABS: ALT/SGPT 18.0 U/L (7.0-40); AST/SGOT 17.0 U/L (<34); CALCIUM LEVEL 8.8 MG/DL (8.3-10.6); CARBON DIOXIDE LEVEL 25.0 MMOL/L (20-31); CHLORIDE LEVEL 106.0 MMOL/L (98-107); CREATININE FOR GFR 1.11 MG/DL (0.55-1.30); GLOMERULAR FILTRATION RATE 51.3 (>39); POTASSIUM SERUM 3.9 MMOL/L (3.5-5.1); SODIUM LEVEL 141.0 MMOL/L (136-145)
[2023-06-04 08:42] LABS: CA19-9 TUMOR MARKER,CARBOHYDRA 50.4 U/ML (<35.0)
[2023-06-04 09:07] LABS: MAGNESIUM LEVEL 1.3 MG/DL (1.8-2.4)
[2023-06-04] MEDS: MAG SULF 1GM/100ML (MAG RUN) 100 ML IV SCH (10:09)
[2023-06-04] MEDS: SODIUM CHLORIDE 0.9% INJ 10 ML SYR IV PRN (12:02)
[2023-06-18 07:57] VITALS: BP 145/79; O2SAT 97
[2023-06-18 08:01] LABS: BASO # 0.1 10^3/uL (0.0-0.2); BASO % 1.0 % (0.0-1.0); EOS # 0.1 10^3/uL (0.0-0.5); EOS % 1.8 % (0.0-3.0); LYMPH # 0.7 10^3/uL (1.5-5.0); LYMPH % 15.2 % (24.0-44.0); MONO # 0.5 10^3/uL (0.0-0.8); MONO % 9.6 % (2.0-8.0); NEUTROPHILS # 3.5 10^3/uL (1.5-8.5); NEUTROPHILS % 71.4 % (36.0-66.0); PLATELET COUNT, AUTOMATED 178 10^3/uL (150-450)
[2023-06-18 08:32] LABS: ALT/SGPT 20.0 U/L (7.0-40); AST/SGOT 18.0 U/L (<34); CALCIUM LEVEL 9.3 MG/DL (8.3-10.6); CARBON DIOXIDE LEVEL 30.0 MMOL/L (20-31); CHLORIDE LEVEL 104.0 MMOL/L (98-107); CREATININE FOR GFR 1.26 MG/DL (0.55-1.30); GLOMERULAR FILTRATION RATE 44.3 (>39); POTASSIUM SERUM 3.7 MMOL/L (3.5-5.1); SODIUM LEVEL 143.0 MMOL/L (136-145)
[2023-06-18] MEDS: PALONOSETRON 0.25 MG/5 ML VIAL IV SCH (09:40)
[2023-06-18] MEDS: FOSAPREPITANT 150 MG in NS 245 ML IV SCH (09:41)
[2023-06-18] MEDS: dexAMETHasone 4 MG/ML 1 ML VIAL IV SCH (09:41)
[2023-06-18] MEDS: D5W IV SCH ×2 (10:29→11:35)
[2023-06-18] MEDS: OXALIPLATIN IV SCH (10:29)
[2023-06-18] MEDS: LEUCOVORIN CALCIUM IV SCH (11:35)
[2023-06-18] MEDS: FLUOROURACIL IV SCH (13:27)
[2023-06-18] MEDS: NS IV SCH (13:27)
[2023-06-20 12:00] VITALS: BP 123/69; O2SAT 99
[2023-06-20] MEDS: MAG SULF 1GM/100ML (MAG RUN) 100 ML IV ONE (12:06)
[2023-06-20] MEDS: SODIUM CHLORIDE 0.9% INJ 10 ML SYR IV PRN (12:06)
[2023-07-02 08:40] LABS: BASO # 0.0 10^3/uL (0.0-0.2); BASO % 0.5 % (0.0-1.0); EOS # 0.1 10^3/uL (0.0-0.5); EOS % 2.5 % (0.0-3.0); LYMPH # 0.5 10^3/uL (1.5-5.0); LYMPH % 8.6 % (24.0-44.0); MONO # 0.5 10^3/uL (0.0-0.8); MONO % 8.6 % (2.0-8.0); NEUTROPHILS # 4.5 10^3/uL (1.5-8.5); NEUTROPHILS % 79.4 % (36.0-66.0); PLATELET COUNT, AUTOMATED 180 10^3/uL (150-450)
[2023-07-02 08:53] VITALS: BP 139/81; O2SAT 100
[2023-07-02 09:11] LABS: ALT/SGPT 19.0 U/L (7.0-40); AST/SGOT 18.0 U/L (<34); CALCIUM LEVEL 9.1 MG/DL (8.3-10.6); CARBON DIOXIDE LEVEL 30.0 MMOL/L (20-31); CHLORIDE LEVEL 101.0 MMOL/L (98-107); CREATININE FOR GFR 1.09 MG/DL (0.55-1.30); GLOMERULAR FILTRATION RATE 52.2 (>39); POTASSIUM SERUM 3.4 MMOL/L (3.5-5.1); SODIUM LEVEL 140.0 MMOL/L (136-145)
[2023-07-02] MEDS: POTASSIUM CHLORIDE 10MEQ SR TABLET PO ONE (09:43)
[2023-07-02] MEDS: MAG SULF 1GM/100ML (MAG RUN) 100 ML IV ONE (09:44)
[2023-07-02] MEDS: PALONOSETRON 0.25 MG/5 ML VIAL IV SCH (11:04)
[2023-07-02] MEDS: dexAMETHasone 4 MG/ML 1 ML VIAL IV SCH (11:04)
[2023-07-02] MEDS: FOSAPREPITANT 150 MG in NS 245 ML IV SCH (11:04)
[2023-07-02] MEDS: LEUCOVORIN CALCIUM IV SCH (12:07)
[2023-07-02] MEDS: D5W IV SCH ×2 (12:07→12:22)
[2023-07-02] MEDS: OXALIPLATIN IV SCH (12:22)
[2023-07-02] MEDS: FLUOROURACIL IV SCH (15:12)
[2023-07-02] MEDS: NS IV SCH (15:12)
[2023-07-04] MEDS: SODIUM CHLORIDE 0.9% INJ 10 ML SYR IV PRN (13:10)
[2023-07-04 13:15] VITALS: BP 148/79; O2SAT 97
[2023-07-16 08:43] VITALS: BP 166/80; O2SAT 98
[2023-07-16 09:04] LABS: BASO # 0.0 10^3/uL (0.0-0.2); BASO % 1.0 % (0.0-1.0); EOS # 0.1 10^3/uL (0.0-0.5); EOS % 3.6 % (0.0-3.0); LYMPH # 0.8 10^3/uL (1.5-5.0); LYMPH % 24.7 % (24.0-44.0); MONO # 0.4 10^3/uL (0.0-0.8); MONO % 12.5 % (2.0-8.0); NEUTROPHILS # 1.8 10^3/uL (1.5-8.5); NEUTROPHILS % 57.9 % (36.0-66.0); PLATELET COUNT, AUTOMATED 117 10^3/uL (150-450)
[2023-07-16 09:27] LABS: ALT/SGPT 24.0 U/L (7.0-40); AST/SGOT 19.0 U/L (<34); CALCIUM LEVEL 8.5 MG/DL (8.3-10.6); CARBON DIOXIDE LEVEL 26.0 MMOL/L (20-31); CHLORIDE LEVEL 106.0 MMOL/L (98-107); CREATININE FOR GFR 1.0 MG/DL (0.55-1.30); GLOMERULAR FILTRATION RATE 57.7 (>39); IRON (FE) 50.0 UG/DL (50-170); MAGNESIUM LEVEL 1.2 MG/DL (1.8-2.4); PERCENT SATURATION 17.5 % (13.2-45.0); POTASSIUM SERUM 3.9 MMOL/L (3.5-5.1); SODIUM LEVEL 140.0 MMOL/L (136-145)
[2023-07-16 09:47] LABS: CA19-9 TUMOR MARKER,CARBOHYDRA 39.2 U/ML (<35.0)
[2023-07-16] MEDS: MAG SULF 1GM/100ML (MAG RUN) 100 ML IV SCH (10:09)
[2023-07-16] MEDS: dexAMETHasone 4 MG/ML 1 ML VIAL IV SCH (11:54)
[2023-07-16] MEDS: PALONOSETRON 0.25 MG/5 ML VIAL IV SCH (11:54)
[2023-07-16] MEDS: FOSAPREPITANT 150 MG in NS 245 ML IV SCH (11:55)
[2023-07-16] MEDS: OXALIPLATIN IV SCH (12:25)
[2023-07-16] MEDS: D5W IV SCH ×3 (12:25→14:53)
[2023-07-16] MEDS: LEUCOVORIN CALCIUM IV SCH (14:20)
[2023-07-16] MEDS: IRINOTECAN HYDROCHLORIDE IV SCH (14:53)
[2023-07-16] MEDS: NS IV SCH (16:28)
[2023-07-16] MEDS: FLUOROURACIL IV SCH (16:28)
[2023-07-18] MEDS: PEGFILGRASTIM 6 MG/0.6 ML ONPRO KIT SC SCH (09:15)
[2023-07-18 14:19] VITALS: BP 122/78; O2SAT 98
[2023-07-18] MEDS: SODIUM CHLORIDE 0.9% INJ 10 ML SYR IV PRN (14:25)
[2023-07-22] MEDS: [UNRECOGNIZED DRUG - OTHER] SC SCH (14:45)
[2023-07-29 08:12] VITALS: BP 146/89; O2SAT 98
[2023-07-29 08:18] LABS: BASO # 0.0 10^3/uL (0.0-0.2); BASO % 0.2 % (0.0-1.0); EOS # 0.2 10^3/uL (0.0-0.5); EOS % 1.4 % (0.0-3.0); LYMPH # 1.1 10^3/uL (1.5-5.0); LYMPH % 6.5 % (24.0-44.0); MONO # 1.5 10^3/uL (0.0-0.8); MONO % 9.3 % (2.0-8.0); NEUTROPHILS # 12.3 10^3/uL (1.5-8.5); NEUTROPHILS % 75.9 % (36.0-66.0); PLATELET COUNT, AUTOMATED 106 10^3/uL (150-450)
[2023-07-29 08:56] LABS: ALT/SGPT 25.0 U/L (7.0-40); AST/SGOT 24.0 U/L (<34); CALCIUM LEVEL 8.4 MG/DL (8.3-10.6); CARBON DIOXIDE LEVEL 28.0 MMOL/L (20-31); CHLORIDE LEVEL 105.0 MMOL/L (98-107); CREATININE FOR GFR 1.21 MG/DL (0.55-1.30); GLOMERULAR FILTRATION RATE 46.3 (>39); POTASSIUM SERUM 3.0 MMOL/L (3.5-5.1); SODIUM LEVEL 143.0 MMOL/L (136-145)
[2023-07-29] MEDS: MAG SULF 1GM/100ML (MAG RUN) 100 ML IV SCH (09:15)
[2023-07-29] MEDS: KCL 10MEQ/100ML SWI (KRUN) 100 ML IV ONE (10:30)
[2023-07-29] MEDS: FOSAPREPITANT 150 MG in NS 245 ML IV SCH (11:41)
[2023-07-29] MEDS: PALONOSETRON 0.25 MG/5 ML VIAL IV SCH (11:42)
[2023-07-29] MEDS: dexAMETHasone 4 MG/ML 1 ML VIAL IV SCH (11:42)
[2023-07-29] MEDS: POTASSIUM CHLORIDE 10MEQ SR TABLET PO ONE (11:42)
[2023-07-29] MEDS: D5W IV SCH ×3 (12:30→15:25)
[2023-07-29] MEDS: OXALIPLATIN IV SCH (12:30)
[2023-07-29] MEDS: LEUCOVORIN CALCIUM IV SCH (14:37)
[2023-07-29] MEDS: IRINOTECAN HYDROCHLORIDE IV SCH (15:25)
[2023-07-29] MEDS: NS IV SCH (17:02)
[2023-07-29] MEDS: FLUOROURACIL IV SCH (17:02)
[2023-07-31] MEDS: SODIUM CHLORIDE 0.9% INJ 10 ML SYR IV PRN (14:23)
[2023-07-31 14:25] VITALS: BP 138/67; O2SAT 97
[2023-08-01] MEDS: [UNRECOGNIZED DRUG - OTHER] SC ONE (12:00)
[2023-08-08] MEDS: NS (Normal Saline) 0.9% 1,000 ML IV ONE (13:15)
[2023-08-08 14:27] LABS: BASO # 0.0 10^3/uL (0.0-0.2); BASO % 0.6 % (0.0-1.0); EOS # 0.1 10^3/uL (0.0-0.5); EOS % 1.3 % (0.0-3.0); LYMPH # 0.6 10^3/uL (1.5-5.0); LYMPH % 13.4 % (24.0-44.0); MONO # 0.8 10^3/uL (0.0-0.8); MONO % 16.1 % (2.0-8.0); NEUTROPHILS # 3.2 10^3/uL (1.5-8.5); NEUTROPHILS % 66.1 % (36.0-66.0)
[2023-08-08 14:47] LABS: ALT/SGPT 17.0 U/L (7.0-40); AST/SGOT 13.0 U/L (<34); CALCIUM LEVEL 9.0 MG/DL (8.3-10.6); CARBON DIOXIDE LEVEL 26.0 MMOL/L (20-31); CHLORIDE LEVEL 100.0 MMOL/L (98-107); CREATININE FOR GFR 1.46 MG/DL (0.55-1.30); GLOMERULAR FILTRATION RATE 37.3 (>39); MAGNESIUM LEVEL 1.4 MG/DL (1.8-2.4); POTASSIUM SERUM 3.4 MMOL/L (3.5-5.1); SODIUM LEVEL 136.0 MMOL/L (136-145)
[2023-08-08] MEDS: SODIUM CHLORIDE 0.9% INJ 10 ML SYR IV PRN (14:47)
[2023-08-08 14:55] LABS: PLATELET COUNT, AUTOMATED 87 10^3/uL (150-450)
[2023-08-26 08:04] LABS: BASO # 0.1 10^3/uL (0.0-0.2); BASO % 1.3 % (0.0-1.0); EOS # 0.0 10^3/uL (0.0-0.5); EOS % 0.6 % (0.0-3.0); LYMPH # 0.6 10^3/uL (1.5-5.0); LYMPH % 11.4 % (24.0-44.0); MONO # 0.7 10^3/uL (0.0-0.8); MONO % 12.1 % (2.0-8.0); NEUTROPHILS # 4.0 10^3/uL (1.5-8.5); NEUTROPHILS % 73.7 % (36.0-66.0); PLATELET COUNT, AUTOMATED 187 10^3/uL (150-450)
[2023-08-26 08:10] VITALS: BP 147/78; O2SAT 96
[2023-08-26 08:27] LABS: ALT/SGPT 18 U/L (7.0-40); AST/SGOT 23 U/L (<34); CALCIUM LEVEL 8.7 MG/DL (8.3-10.6); CARBON DIOXIDE LEVEL 26 MMOL/L (20-31); CHLORIDE LEVEL 105 MMOL/L (98-107); CREATININE FOR GFR 0.96 MG/DL (0.55-1.30); GLOMERULAR FILTRATION RATE > 60.0 (>39); POTASSIUM SERUM 3.6 MMOL/L (3.5-5.1); SODIUM LEVEL 140 MMOL/L (136-145)
[2023-08-26] MEDS: MAG SULF 1GM/100ML (MAG RUN) 100 ML IV SCH (08:46)
[2023-08-26] MEDS: dexAMETHasone 4 MG/ML 1 ML VIAL IV SCH (10:40)
[2023-08-26] MEDS: PALONOSETRON 0.25 MG/5 ML VIAL IV SCH (10:40)
[2023-08-26] MEDS: FOSAPREPITANT 150 MG in NS 245 ML IV SCH (10:40)
[2023-08-26] MEDS: D5W IV SCH ×3 (11:12→13:55)
[2023-08-26] MEDS: OXALIPLATIN IV SCH (11:12)
[2023-08-26] MEDS: LEUCOVORIN CALCIUM IV SCH (13:21)
[2023-08-26] MEDS: IRINOTECAN HYDROCHLORIDE IV SCH (13:55)
[2023-08-26] MEDS: FLUOROURACIL IV SCH (15:30)
[2023-08-26] MEDS: NS IV SCH (15:30)
[2023-08-28] MEDS: MAG SULF 1GM/100ML (MAG RUN) 100 ML IV SCH (12:51)
[2023-08-28 13:05] VITALS: BP 124/65; O2SAT 98
[2023-08-30] MEDS: [UNRECOGNIZED DRUG - OTHER] SC ONE ×2 (11:16→11:56)
[2023-09-09 08:20] VITALS: BP 161/88; O2SAT 96
[2023-09-09 08:25] LABS: BASO # 0.1 10^3/uL (0.0-0.2); BASO % 0.8 % (0.0-1.0); EOS # 0.2 10^3/uL (0.0-0.5); EOS % 1.5 % (0.0-3.0); LYMPH # 0.9 10^3/uL (1.5-5.0); LYMPH % 8.0 % (24.0-44.0); MONO # 0.8 10^3/uL (0.0-0.8); MONO % 6.5 % (2.0-8.0); NEUTROPHILS # 9.0 10^3/uL (1.5-8.5); NEUTROPHILS % 78.0 % (36.0-66.0); PLATELET COUNT, AUTOMATED 138 10^3/uL (150-450)
[2023-09-09 08:47] LABS: ALT/SGPT 20.0 U/L (7.0-40); AST/SGOT 19.0 U/L (<34); CALCIUM LEVEL 9.1 MG/DL (8.3-10.6); CARBON DIOXIDE LEVEL 26.0 MMOL/L (20-31); CHLORIDE LEVEL 105.0 MMOL/L (98-107); CREATININE FOR GFR 1.1 MG/DL (0.55-1.30); GLOMERULAR FILTRATION RATE 51.7 (>39); MAGNESIUM LEVEL 1.3 MG/DL (1.8-2.4); POTASSIUM SERUM 3.7 MMOL/L (3.5-5.1); SODIUM LEVEL 141.0 MMOL/L (136-145)
[2023-09-09] MEDS: dexAMETHasone 4 MG/ML 1 ML VIAL IV SCH (09:11)
[2023-09-09] MEDS: FOSAPREPITANT 150 MG in NS 245 ML IV SCH (09:11)
[2023-09-09] MEDS: PALONOSETRON 0.25 MG/5 ML VIAL IV SCH (09:12)
[2023-09-09 09:32] LABS: CA19-9 TUMOR MARKER,CARBOHYDRA 28.0 U/ML (<35.0)
[2023-09-09] MEDS: MAG SULF 1GM/100ML (MAG RUN) 100 ML IV SCH (09:36)
[2023-09-09] MEDS: D5W IV SCH ×3 (11:48→14:29)
[2023-09-09] MEDS: OXALIPLATIN IV SCH (11:48)
[2023-09-09] MEDS: LEUCOVORIN CALCIUM IV SCH (13:57)
[2023-09-09] MEDS: IRINOTECAN HYDROCHLORIDE IV SCH (14:29)
[2023-09-09] MEDS: NS IV SCH (16:03)
[2023-09-09] MEDS: FLUOROURACIL IV SCH (16:03)
[2023-09-11 13:00] VITALS: BP 142/65; O2SAT 96
[2023-09-11] MEDS: SODIUM CHLORIDE 0.9% INJ 10 ML SYR IV PRN (13:28)
[2023-09-12] MEDS: [UNRECOGNIZED DRUG - OTHER] SC ONE (13:56)
[2023-09-18 10:30] LABS: BASO # 0.1 10^3/uL (0.0-0.2); BASO % 0.9 % (0.0-1.0); EOS # 0.2 10^3/uL (0.0-0.5); EOS % 2.9 % (0.0-3.0); LYMPH # 0.6 10^3/uL (1.5-5.0); LYMPH % 10.4 % (24.0-44.0); MONO # 0.9 10^3/uL (0.0-0.8); MONO % 16.6 % (2.0-8.0); NEUTROPHILS # 3.8 10^3/uL (1.5-8.5); NEUTROPHILS % 67.2 % (36.0-66.0)
[2023-09-18 10:48] LABS: PLATELET COUNT, AUTOMATED 91 10^3/uL (150-450)
[2023-09-18 10:54] LABS: ALT/SGPT 14.0 U/L (7.0-40); AST/SGOT 15.0 U/L (<34); CALCIUM LEVEL 9.1 MG/DL (8.3-10.6); CARBON DIOXIDE LEVEL 21.0 MMOL/L (20-31); CHLORIDE LEVEL 103.0 MMOL/L (98-107); CREATININE FOR GFR 1.4 MG/DL (0.55-1.30); GLOMERULAR FILTRATION RATE 39.1 (>39); POTASSIUM SERUM 3.7 MMOL/L (3.5-5.1); SODIUM LEVEL 135.0 MMOL/L (136-145)
[2023-09-18] MEDS: NS (Normal Saline) 0.9% 1,000 ML IV ONE (11:10)
[2023-09-18] MEDS: MAG SULF 1GM/100ML (MAG RUN) 100 ML IV SCH (11:10)
[2023-09-18 11:30] VITALS: BP 143/72; O2SAT 97
[2023-09-23 08:47] LABS: BASO # 0.1 10^3/uL (0.0-0.2); BASO % 0.6 % (0.0-1.0); EOS # 0.1 10^3/uL (0.0-0.5); EOS % 0.9 % (0.0-3.0); LYMPH # 0.8 10^3/uL (1.5-5.0); LYMPH % 7.6 % (24.0-44.0); MONO # 1.0 10^3/uL (0.0-0.8); MONO % 9.6 % (2.0-8.0); NEUTROPHILS # 7.9 10^3/uL (1.5-8.5); NEUTROPHILS % 79.1 % (36.0-66.0); PLATELET COUNT, AUTOMATED 125 10^3/uL (150-450)
[2023-09-23 08:57] VITALS: BP 147/92; O2SAT 99
[2023-09-23 09:26] LABS: ALT/SGPT 22.0 U/L (7.0-40); AST/SGOT 22.0 U/L (<34); CALCIUM LEVEL 8.6 MG/DL (8.3-10.6); CARBON DIOXIDE LEVEL 21.0 MMOL/L (20-31); CHLORIDE LEVEL 104.0 MMOL/L (98-107); CREATININE FOR GFR 1.44 MG/DL (0.55-1.30); GLOMERULAR FILTRATION RATE 37.9 (>39); MAGNESIUM LEVEL 1.2 MG/DL (1.8-2.4); POTASSIUM SERUM 2.6 MMOL/L (3.5-5.1); SODIUM LEVEL 141.0 MMOL/L (136-145)
[2023-09-23 09:55] LABS: CA19-9 TUMOR MARKER,CARBOHYDRA 31.4 U/ML (<35.0)
[2023-09-23] MEDS: POTASSIUM CHLORIDE 10MEQ SR TABLET PO ONE (09:59)
[2023-09-23] MEDS: KCL 10MEQ/100ML SWI (KRUN) 100 ML IV SCH (09:59)
[2023-09-23] MEDS: MAG SULF 1GM/100ML (MAG RUN) 100 ML IV SCH (10:00)
[2023-09-23] MEDS: PALONOSETRON 0.25 MG/5 ML VIAL IV SCH (12:09)
[2023-09-23] MEDS: FOSAPREPITANT 150 MG in NS 245 ML IV SCH (12:09)
[2023-09-23] MEDS: dexAMETHasone 4 MG/ML 1 ML VIAL IV SCH (12:09)
[2023-09-23] MEDS: LEUCOVORIN CALCIUM IV SCH (12:40)
[2023-09-23] MEDS: D5W IV SCH ×2 (12:40→12:42)
[2023-09-23] MEDS: IRINOTECAN HYDROCHLORIDE IV SCH (12:42)
[2023-09-23] MEDS: NS IV SCH (14:23)
[2023-09-23] MEDS: FLUOROURACIL IV SCH (14:23)
[2023-09-25 12:00] VITALS: BP 103/61; O2SAT 99
[2023-09-25] MEDS: SODIUM CHLORIDE 0.9% INJ 10 ML SYR IV PRN (12:08)
[2023-09-26 11:08] LABS: ALT/SGPT 15.0 U/L (7.0-40); AST/SGOT 13.0 U/L (<34); CALCIUM LEVEL 8.3 MG/DL (8.3-10.6); CARBON DIOXIDE LEVEL 20.0 MMOL/L (20-31); CHLORIDE LEVEL 105.0 MMOL/L (98-107); CREATININE FOR GFR 1.4 MG/DL (0.55-1.30); GLOMERULAR FILTRATION RATE 39.1 (>39); POTASSIUM SERUM 3.0 MMOL/L (3.5-5.1); SODIUM LEVEL 138.0 MMOL/L (136-145)
[2023-09-26] MEDS: POTASSIUM CHLORIDE 10MEQ SR TABLET PO ONE (11:57)
[2023-09-26] MEDS: KCL 10MEQ/100ML SWI (KRUN) 100 ML IV ONE (11:57)
[2023-09-26] MEDS: NS (Normal Saline) 0.9% 1,000 ML IV ONE (11:57)
[2023-09-26] MEDS: [UNRECOGNIZED DRUG - OTHER] SC ONE (12:00)
[2023-10-07 08:33] VITALS: BP 139/81; O2SAT 99
[2023-10-07 08:45] LABS: BASO # 0.1 10^3/uL (0.0-0.2); BASO % 0.4 % (0.0-1.0); EOS # 0.1 10^3/uL (0.0-0.5); EOS % 0.5 % (0.0-3.0); LYMPH # 0.6 10^3/uL (1.5-5.0); LYMPH % 5.2 % (24.0-44.0); MONO # 1.0 10^3/uL (0.0-0.8); MONO % 7.9 % (2.0-8.0); NEUTROPHILS # 10.3 10^3/uL (1.5-8.5); NEUTROPHILS % 84.1 % (36.0-66.0); PLATELET COUNT, AUTOMATED 137 10^3/uL (150-450)
[2023-10-07 09:09] LABS: ALT/SGPT 10.0 U/L (7.0-40); AST/SGOT 13.0 U/L (<34); CALCIUM LEVEL 8.5 MG/DL (8.3-10.6); CARBON DIOXIDE LEVEL 21.0 MMOL/L (20-31); CHLORIDE LEVEL 107.0 MMOL/L (98-107); CREATININE FOR GFR 1.36 MG/DL (0.55-1.30); GLOMERULAR FILTRATION RATE 40.5 (>39); POTASSIUM SERUM 3.0 MMOL/L (3.5-5.1); SODIUM LEVEL 142.0 MMOL/L (136-145)
[2023-10-07] MEDS: MAG SULF 1GM/100ML (MAG RUN) 100 ML IV SCH (10:16)
[2023-10-07] MEDS: POTASSIUM CHLORIDE 10MEQ SR TABLET PO ONE (10:19)
[2023-10-07] MEDS: KCL 10MEQ/100ML SWI (KRUN) 100 ML IV ONE (10:19)
[2023-10-07] MEDS: dexAMETHasone 4 MG/ML 1 ML VIAL IV SCH (11:19)
[2023-10-07] MEDS: FOSAPREPITANT 150 MG in NS 245 ML IV SCH (11:19)
[2023-10-07] MEDS: PALONOSETRON 0.25 MG/5 ML VIAL IV SCH (11:19)
[2023-10-07] MEDS: D5W IV SCH ×2 (12:33→12:35)
[2023-10-07] MEDS: LEUCOVORIN CALCIUM IV SCH (12:33)
[2023-10-07] MEDS: IRINOTECAN HYDROCHLORIDE IV SCH (12:35)
[2023-10-07] MEDS: NS IV SCH (14:19)
[2023-10-07] MEDS: FLUOROURACIL IV SCH (14:19)
[2023-10-09 12:14] VITALS: BP 108/65; O2SAT 99
[2023-10-09] MEDS: SODIUM CHLORIDE 0.9% INJ 10 ML SYR IV PRN (12:19)
[2023-10-10] MEDS: [UNRECOGNIZED DRUG - OTHER] SC ONE (15:04)
[2023-10-14] MEDS: NS (Normal Saline) 0.9% 1,000 ML IV ONE ×2 (08:00→13:03)
[2023-10-14 12:21] LABS: ALT/SGPT 13.0 U/L (7.0-40); AST/SGOT 13.0 U/L (<34); CALCIUM LEVEL 8.7 MG/DL (8.3-10.6); CARBON DIOXIDE LEVEL 25.0 MMOL/L (20-31); CHLORIDE LEVEL 100.0 MMOL/L (98-107); CREATININE FOR GFR 0.99 MG/DL (0.55-1.30); GLOMERULAR FILTRATION RATE 58.4 (>39); POTASSIUM SERUM 4.2 MMOL/L (3.5-5.1); SODIUM LEVEL 134.0 MMOL/L (136-145)
[2023-10-14 13:00] VITALS: BP 104/69; O2SAT 100
[2023-10-14] MEDS: MAG SULF 1GM/100ML (MAG RUN) 100 ML IV SCH (13:03)
[2023-10-14] MEDS: SODIUM CHLORIDE 0.9% INJ 10 ML SYR IV PRN (15:10)
[2023-10-18] MEDS: NS (Normal Saline) 0.9% 1,000 ML IV ONE (12:41)
[2023-10-18 13:09] LABS: CALCIUM LEVEL 8.1 MG/DL (8.3-10.6); CARBON DIOXIDE LEVEL 22.0 MMOL/L (20-31); CHLORIDE LEVEL 104.0 MMOL/L (98-107); CREATININE FOR GFR 1.36 MG/DL (0.55-1.30); GLOMERULAR FILTRATION RATE 40.5 (>39); MAGNESIUM LEVEL 1.5 MG/DL (1.8-2.4); POTASSIUM SERUM 3.1 MMOL/L (3.5-5.1); SODIUM LEVEL 137.0 MMOL/L (136-145)
[2023-10-18] MEDS: MAG SULF 1GM/100ML (MAG RUN) 100 ML IV SCH (13:45)
[2023-10-18] MEDS: POTASSIUM CHLORIDE 10MEQ SR TABLET PO ONE (13:46)
[2023-10-18] MEDS: KCL 10MEQ/100ML SWI (KRUN) 100 ML IV ONE (13:46)
[2023-10-21 07:58] VITALS: BP 136/83; O2SAT 18
[2023-10-21 08:04] LABS: BASO # 0.1 10^3/uL (0.0-0.2); BASO % 0.6 % (0.0-1.0); EOS # 0.1 10^3/uL (0.0-0.5); EOS % 0.4 % (0.0-3.0); LYMPH # 0.7 10^3/uL (1.5-5.0); LYMPH % 6.2 % (24.0-44.0); MONO # 0.8 10^3/uL (0.0-0.8); MONO % 7.0 % (2.0-8.0); NEUTROPHILS # 9.4 10^3/uL (1.5-8.5); NEUTROPHILS % 80.4 % (36.0-66.0); PLATELET COUNT, AUTOMATED 176 10^3/uL (150-450)
[2023-10-21 08:46] LABS: ALT/SGPT 21.0 U/L (7.0-40); AST/SGOT 25.0 U/L (<34); CALCIUM LEVEL 8.8 MG/DL (8.3-10.6); CARBON DIOXIDE LEVEL 21.0 MMOL/L (20-31); CHLORIDE LEVEL 108.0 MMOL/L (98-107); CREATININE FOR GFR 1.27 MG/DL (0.55-1.30); GLOMERULAR FILTRATION RATE 43.8 (>39); MAGNESIUM LEVEL 1.7 MG/DL (1.8-2.4); SODIUM LEVEL 142.0 MMOL/L (136-145)
[2023-10-21 08:50] LABS: POTASSIUM SERUM 2.8 MMOL/L (3.5-5.1)
[2023-10-21 08:51] LABS: CA19-9 TUMOR MARKER,CARBOHYDRA 41.0 U/ML (<35.0)
[2023-10-21] MEDS: NS (Normal Saline) 0.9% 1,000 ML IV ONE (09:27)
[2023-10-21] MEDS: KCL 10MEQ/100ML SWI (KRUN) 100 ML IV SCH (09:28)
[2023-10-21] MEDS: MAG SULF 1GM/100ML (MAG RUN) 100 ML IV ONE (09:28)
[2023-10-21] MEDS: POTASSIUM CHLORIDE 10MEQ SR TABLET PO ONE (09:29)
[2023-10-21] MEDS: SODIUM CHLORIDE 0.9% INJ 10 ML SYR IV PRN (11:47)
[2023-10-24 08:45] VITALS: BP 107/66; O2SAT 99
[2023-10-24 09:28] LABS: CALCIUM LEVEL 8.7 MG/DL (8.3-10.6); CARBON DIOXIDE LEVEL 23.0 MMOL/L (20-31); CHLORIDE LEVEL 108.0 MMOL/L (98-107); CREATININE FOR GFR 0.98 MG/DL (0.55-1.30); GLOMERULAR FILTRATION RATE 59.1 (>39); MAGNESIUM LEVEL 1.8 MG/DL (1.8-2.4); POTASSIUM SERUM 3.2 MMOL/L (3.5-5.1); SODIUM LEVEL 142.0 MMOL/L (136-145)
[2023-10-24] MEDS: POTASSIUM CHLORIDE IV ONE (10:17)
[2023-10-24] MEDS: NS B BRAUN IV ONE (10:17)
[2023-10-24] MEDS: MAGNESIUM SULFATE IV ONE (10:17)
[2023-10-24] MEDS: SODIUM CHLORIDE 0.9% INJ 10 ML SYR IV PRN (12:31)
[2023-10-28 08:40] VITALS: BP 118/67; O2SAT 98
[2023-10-28 09:25] LABS: CALCIUM LEVEL 8.9 MG/DL (8.3-10.6); CARBON DIOXIDE LEVEL 25 MMOL/L (20-31); CHLORIDE LEVEL 105 MMOL/L (98-107); CREATININE FOR GFR 0.94 MG/DL (0.55-1.30); GLOMERULAR FILTRATION RATE > 60.0 (>39); MAGNESIUM LEVEL 1.8 MG/DL (1.8-2.4); POTASSIUM SERUM 4.0 MMOL/L (3.5-5.1); SODIUM LEVEL 139 MMOL/L (136-145)
[2023-10-28] MEDS: SODIUM CHLORIDE 0.9% INJ 10 ML SYR IV PRN (09:38)
[2023-10-28] MEDS: NS (Normal Saline) 0.9% 1,000 ML IV ONE (09:42)
[2023-10-31 08:30] VITALS: BP 127/59; O2SAT 99
[2023-10-31] MEDS: NS (Normal Saline) 0.9% 1,000 ML IV ONE (08:47)
[2023-10-31 09:34] LABS: CALCIUM LEVEL 8.7 MG/DL (8.3-10.6); CARBON DIOXIDE LEVEL 27.0 MMOL/L (20-31); CHLORIDE LEVEL 105.0 MMOL/L (98-107); CREATININE FOR GFR 1.01 MG/DL (0.55-1.30); GLOMERULAR FILTRATION RATE 57.0 (>39); MAGNESIUM LEVEL 1.9 MG/DL (1.8-2.4); POTASSIUM SERUM 4.1 MMOL/L (3.5-5.1); SODIUM LEVEL 140.0 MMOL/L (136-145)
[2023-10-31] MEDS: SODIUM CHLORIDE 0.9% INJ 10 ML SYR IV PRN (10:03)
[2023-11-07 08:41] VITALS: BP 128/74; O2SAT 98
[2023-11-07 09:27] LABS: CALCIUM LEVEL 9.0 MG/DL (8.3-10.6); CARBON DIOXIDE LEVEL 29 MMOL/L (20-31); CHLORIDE LEVEL 103 MMOL/L (98-107); CREATININE FOR GFR 0.94 MG/DL (0.55-1.30); GLOMERULAR FILTRATION RATE > 60.0 (>39); POTASSIUM SERUM 3.5 MMOL/L (3.5-5.1); SODIUM LEVEL 140 MMOL/L (136-145)
[2023-11-07] MEDS: MAG SULF 1GM/100ML (MAG RUN) 100 ML IV SCH (10:19)
[2023-11-07] MEDS: SODIUM CHLORIDE 0.9% INJ 10 ML SYR IV PRN (12:09)
[2023-11-12 09:14] VITALS: BP 145/80; O2SAT 97
[2023-11-12 09:30] LABS: BASO # 0.0 10^3/uL (0.0-0.2); BASO % 0.5 % (0.0-1.0); EOS # 0.1 10^3/uL (0.0-0.5); EOS % 1.7 % (0.0-3.0); LYMPH # 0.8 10^3/uL (1.5-5.0); LYMPH % 9.6 % (24.0-44.0); MONO # 0.7 10^3/uL (0.0-0.8); MONO % 8.7 % (2.0-8.0); NEUTROPHILS # 6.5 10^3/uL (1.5-8.5); NEUTROPHILS % 78.9 % (36.0-66.0); PLATELET COUNT, AUTOMATED 217 10^3/uL (150-450)
[2023-11-12 09:47] LABS: ALT/SGPT 15 U/L (7.0-40); AST/SGOT 17 U/L (<34); CALCIUM LEVEL 9.2 MG/DL (8.3-10.6); CARBON DIOXIDE LEVEL 31 MMOL/L (20-31); CHLORIDE LEVEL 102 MMOL/L (98-107); CREATININE FOR GFR 0.89 MG/DL (0.55-1.30); GLOMERULAR FILTRATION RATE > 60.0 (>39); MAGNESIUM LEVEL 2.0 MG/DL (1.8-2.4); POTASSIUM SERUM 4.1 MMOL/L (3.5-5.1); SODIUM LEVEL 139 MMOL/L (136-145)
[2023-11-12 10:06] LABS: CA19-9 TUMOR MARKER,CARBOHYDRA 34.0 U/ML (<35.0)
[2023-11-12] MEDS: PALONOSETRON 0.25 MG/5 ML VIAL IV SCH (10:06)
[2023-11-12] MEDS: dexAMETHasone 4 MG/ML 1 ML VIAL IV SCH (10:06)
[2023-11-12] MEDS: FOSAPREPITANT 150 MG in NS 245 ML IV SCH (10:06)
[2023-11-12] MEDS: D5W IV SCH ×2 (10:58→11:33)
[2023-11-12] MEDS: LEUCOVORIN CALCIUM IV SCH (10:58)
[2023-11-12] MEDS: IRINOTECAN HYDROCHLORIDE IV SCH (11:33)
[2023-11-12] MEDS: NS IV SCH (13:08)
[2023-11-12] MEDS: FLUOROURACIL IV SCH (13:08)
[2023-11-14 11:51] VITALS: BP 137/74; O2SAT 98
[2023-11-14] MEDS: SODIUM CHLORIDE 0.9% INJ 10 ML SYR IV PRN (12:03)
[2023-11-15] MEDS: [UNRECOGNIZED DRUG - OTHER] SC ONE (10:37)
[2023-11-18 12:19] LABS: CALCIUM LEVEL 8.6 MG/DL (8.3-10.6); CARBON DIOXIDE LEVEL 31.0 MMOL/L (20-31); CHLORIDE LEVEL 101.0 MMOL/L (98-107); CREATININE FOR GFR 1.0 MG/DL (0.55-1.30); GLOMERULAR FILTRATION RATE 57.7 (>39); MAGNESIUM LEVEL 1.9 MG/DL (1.8-2.4); POTASSIUM SERUM 4.0 MMOL/L (3.5-5.1); SODIUM LEVEL 136.0 MMOL/L (136-145)
[2023-11-21] MEDS: NS (Normal Saline) 0.9% 1,000 ML IV ONE (16:06)
[2023-11-21] MEDS: MAG SULF 1GM/100ML (MAG RUN) 100 ML IV ONE (16:06)
[2023-11-21] MEDS: SODIUM CHLORIDE 0.9% INJ 10 ML SYR IV PRN (17:10)
[2023-11-25 11:23] VITALS: BP 124/76; O2SAT 98
[2023-11-25 11:34] LABS: BASO # 0.1 10^3/uL (0.0-0.2); BASO % 0.5 % (0.0-1.0); EOS # 0.1 10^3/uL (0.0-0.5); EOS % 0.7 % (0.0-3.0); LYMPH # 1.1 10^3/uL (1.5-5.0); LYMPH % 9.9 % (24.0-44.0); MONO # 0.6 10^3/uL (0.0-0.8); MONO % 5.8 % (2.0-8.0); NEUTROPHILS # 8.8 10^3/uL (1.5-8.5); NEUTROPHILS % 81.4 % (36.0-66.0); PLATELET COUNT, AUTOMATED 206 10^3/uL (150-450)
[2023-11-25 12:02] LABS: ALT/SGPT 20 U/L (7.0-40); AST/SGOT 17 U/L (<34); CALCIUM LEVEL 9.0 MG/DL (8.3-10.6); CARBON DIOXIDE LEVEL 30 MMOL/L (20-31); CHLORIDE LEVEL 102 MMOL/L (98-107); CREATININE FOR GFR 0.91 MG/DL (0.55-1.30); GLOMERULAR FILTRATION RATE > 60.0 (>39); MAGNESIUM LEVEL 1.5 MG/DL (1.8-2.4); POTASSIUM SERUM 3.7 MMOL/L (3.5-5.1); SODIUM LEVEL 139 MMOL/L (136-145)
[2023-11-25 12:34] LABS: CA19-9 TUMOR MARKER,CARBOHYDRA 36.5 U/ML (<35.0)
[2023-11-25] MEDS: MAG SULF 1GM/100ML (MAG RUN) 100 ML IV SCH (12:35)
[2023-11-25] MEDS: PALONOSETRON 0.25 MG/5 ML VIAL IV SCH (14:33)
[2023-11-25] MEDS: dexAMETHasone 4 MG/ML 1 ML VIAL IV SCH (14:33)
[2023-11-25] MEDS: FOSAPREPITANT 150 MG in NS 245 ML IV SCH (14:33)
[2023-11-25] MEDS: D5W IV SCH ×2 (15:18→15:21)
[2023-11-25] MEDS: LEUCOVORIN CALCIUM IV SCH (15:18)
[2023-11-25] MEDS: IRINOTECAN HYDROCHLORIDE IV SCH (15:21)
[2023-11-25] MEDS: NS IV SCH (16:57)
[2023-11-25] MEDS: FLUOROURACIL IV SCH (16:57)
[2023-11-28 10:20] VITALS: BP 149/85; O2SAT 98
[2023-11-28] MEDS: NS (Normal Saline) 0.9% 1,000 ML IV ONE (10:37)
[2023-11-28] MEDS: [UNRECOGNIZED DRUG - OTHER] SC ONE (10:46)
[2023-11-28 11:29] LABS: CALCIUM LEVEL 8.9 MG/DL (8.3-10.6); CARBON DIOXIDE LEVEL 30 MMOL/L (20-31); CHLORIDE LEVEL 104 MMOL/L (98-107); CREATININE FOR GFR 0.93 MG/DL (0.55-1.30); GLOMERULAR FILTRATION RATE > 60.0 (>39); POTASSIUM SERUM 3.9 MMOL/L (3.5-5.1); SODIUM LEVEL 140 MMOL/L (136-145)
[2023-11-28] MEDS: SODIUM CHLORIDE 0.9% INJ 10 ML SYR IV PRN (12:00)
[2023-12-02 11:00] VITALS: BP 108/62; O2SAT 98
[2023-12-02 12:05] LABS: CALCIUM LEVEL 9.3 MG/DL (8.3-10.6); CARBON DIOXIDE LEVEL 30 MMOL/L (20-31); CHLORIDE LEVEL 104 MMOL/L (98-107); CREATININE FOR GFR 0.95 MG/DL (0.55-1.30); GLOMERULAR FILTRATION RATE > 60.0 (>39); POTASSIUM SERUM 3.8 MMOL/L (3.5-5.1); SODIUM LEVEL 141 MMOL/L (136-145)
[2023-12-02] MEDS: MAG SULF 1GM/100ML (MAG RUN) 100 ML IV SCH (12:28)
[2023-12-02] MEDS: NS (Normal Saline) 0.9% 1,000 ML IV ONE (12:28)
[2023-12-02] MEDS: SODIUM CHLORIDE 0.9% INJ 10 ML SYR IV PRN (14:37)
[2023-12-05] MEDS: NS (Normal Saline) 0.9% 1,000 ML IV ONE (11:18)
[2023-12-05 12:00] LABS: CALCIUM LEVEL 8.3 MG/DL (8.3-10.6); CARBON DIOXIDE LEVEL 31.0 MMOL/L (20-31); CHLORIDE LEVEL 104.0 MMOL/L (98-107); CREATININE FOR GFR 0.98 MG/DL (0.55-1.30); GLOMERULAR FILTRATION RATE 59.1 (>39); POTASSIUM SERUM 4.0 MMOL/L (3.5-5.1); SODIUM LEVEL 142.0 MMOL/L (136-145)
[2023-12-05 12:15] VITALS: BP 126/76; O2SAT 97
[2023-12-05] MEDS: MAG SULF 1GM/100ML (MAG RUN) 100 ML IV SCH (12:17)
[2023-12-05] MEDS: SODIUM CHLORIDE 0.9% INJ 10 ML SYR IV PRN (14:20)
[2023-12-09 08:05] LABS: BASO # 0.1 10^3/uL (0.0-0.2); BASO % 1.0 % (0.0-1.0); EOS # 0.3 10^3/uL (0.0-0.5); EOS % 2.7 % (0.0-3.0); LYMPH # 1.1 10^3/uL (1.5-5.0); LYMPH % 11.0 % (24.0-44.0); MONO # 0.7 10^3/uL (0.0-0.8); MONO % 6.7 % (2.0-8.0); NEUTROPHILS # 7.6 10^3/uL (1.5-8.5); NEUTROPHILS % 74.4 % (36.0-66.0); PLATELET COUNT, AUTOMATED 144 10^3/uL (150-450)
[2023-12-09 08:10] VITALS: BP 128/70; O2SAT 95
[2023-12-09 08:26] LABS: MAGNESIUM LEVEL 1.7 MG/DL (1.8-2.4)
[2023-12-09 08:28] LABS: ALT/SGPT 16 U/L (7.0-40); AST/SGOT 17 U/L (<34); CALCIUM LEVEL 9.1 MG/DL (8.3-10.6); CARBON DIOXIDE LEVEL 32 MMOL/L (20-31); CHLORIDE LEVEL 104 MMOL/L (98-107); CREATININE FOR GFR 0.92 MG/DL (0.55-1.30); GLOMERULAR FILTRATION RATE > 60.0 (>39); POTASSIUM SERUM 3.8 MMOL/L (3.5-5.1); SODIUM LEVEL 142 MMOL/L (136-145)
[2023-12-09 08:48] LABS: CA19-9 TUMOR MARKER,CARBOHYDRA 32.7 U/ML (<35.0)
[2023-12-09] MEDS: MAG SULF 1GM/100ML (MAG RUN) 100 ML IV SCH (09:08)
[2023-12-09] MEDS: PALONOSETRON 0.25 MG/5 ML VIAL IV SCH (11:11)
[2023-12-09] MEDS: dexAMETHasone 4 MG/ML 1 ML VIAL IV SCH (11:11)
[2023-12-09] MEDS: FOSAPREPITANT 150 MG in NS 245 ML IV SCH (11:12)
[2023-12-09] MEDS: LEUCOVORIN CALCIUM IV SCH (11:47)
[2023-12-09] MEDS: D5W IV SCH ×2 (11:47→11:51)
[2023-12-09] MEDS: IRINOTECAN HYDROCHLORIDE IV SCH (11:51)
[2023-12-09] MEDS: NS IV SCH (13:26)
[2023-12-09] MEDS: FLUOROURACIL IV SCH (13:26)
[2023-12-11 12:50] VITALS: BP 110/68; O2SAT 99
[2023-12-11] MEDS: SODIUM CHLORIDE 0.9% INJ 10 ML SYR IV PRN (12:55)
[2023-12-11 13:32] LABS: ALT/SGPT 17.0 U/L (7.0-40); AST/SGOT 14.0 U/L (<34); CALCIUM LEVEL 8.9 MG/DL (8.3-10.6); CARBON DIOXIDE LEVEL 32.0 MMOL/L (20-31); CHLORIDE LEVEL 103.0 MMOL/L (98-107); CREATININE FOR GFR 1.06 MG/DL (0.55-1.30); GLOMERULAR FILTRATION RATE 53.9 (>39); MAGNESIUM LEVEL 2.3 MG/DL (1.8-2.4); POTASSIUM SERUM 3.7 MMOL/L (3.5-5.1); SODIUM LEVEL 139.0 MMOL/L (136-145)
[2023-12-12] MEDS: NS (Normal Saline) 0.9% 1,000 ML IV ONE (11:47)
[2023-12-12] MEDS: [UNRECOGNIZED DRUG - OTHER] SC ONE (12:59)
[2023-12-12 13:10] VITALS: BP 102/63; O2SAT 100
[2023-12-12] MEDS: SODIUM CHLORIDE 0.9% INJ 10 ML SYR IV PRN (13:24)
[2023-12-16] MEDS: SODIUM CHLORIDE 0.9% INJ 10 ML SYR IV PRN (09:52)
[2023-12-16 10:34] LABS: CALCIUM LEVEL 9.0 MG/DL (8.3-10.6); CARBON DIOXIDE LEVEL 29.0 MMOL/L (20-31); CHLORIDE LEVEL 102.0 MMOL/L (98-107); CREATININE FOR GFR 1.01 MG/DL (0.55-1.30); GLOMERULAR FILTRATION RATE 57.0 (>39); POTASSIUM SERUM 3.4 MMOL/L (3.5-5.1); SODIUM LEVEL 139.0 MMOL/L (136-145)
[2023-12-16 12:40] VITALS: BP 114/64; O2SAT 100
[2023-12-16] MEDS: MAG SULF 1GM/100ML (MAG RUN) 100 ML IV ONE (12:40)
[2023-12-16] MEDS: KCL 10MEQ/100ML SWI (KRUN) 100 ML IV ONE (12:41)
[2023-12-19 11:12] VITALS: BP 108/68; O2SAT 96
[2023-12-19 12:30] LABS: CALCIUM LEVEL 8.8 MG/DL (8.3-10.6); CARBON DIOXIDE LEVEL 29.0 MMOL/L (20-31); CHLORIDE LEVEL 99.0 MMOL/L (98-107); CREATININE FOR GFR 1.15 MG/DL (0.55-1.30); GLOMERULAR FILTRATION RATE 49.1 (>39); MAGNESIUM LEVEL 1.7 MG/DL (1.8-2.4); POTASSIUM SERUM 3.4 MMOL/L (3.5-5.1); SODIUM LEVEL 136.0 MMOL/L (136-145)
[2023-12-19] MEDS: POTASSIUM CHLORIDE 10MEQ SR TABLET PO ONE (13:29)
[2023-12-19] MEDS: MAG SULF 1GM/100ML (MAG RUN) 100 ML IV ONE (13:29)
[2023-12-19] MEDS: SODIUM CHLORIDE 0.9% INJ 10 ML SYR IV PRN (14:40)
[2023-12-23 09:17] LABS: BASO # 0.1 10^3/uL (0.0-0.2); BASO % 0.6 % (0.0-1.0); EOS # 0.2 10^3/uL (0.0-0.5); EOS % 1.2 % (0.0-3.0); LYMPH # 0.5 10^3/uL (1.5-5.0); LYMPH % 3.4 % (24.0-44.0); MONO # 0.8 10^3/uL (0.0-0.8); MONO % 5.0 % (2.0-8.0); NEUTROPHILS # 13.6 10^3/uL (1.5-8.5); NEUTROPHILS % 88.0 % (36.0-66.0); PLATELET COUNT, AUTOMATED 216 10^3/uL (150-450)
[2023-12-23 09:22] VITALS: BP 133/78; O2SAT 96
[2023-12-23 09:38] LABS: ALT/SGPT 15.0 U/L (7.0-40); AST/SGOT 15.0 U/L (<34); CALCIUM LEVEL 8.9 MG/DL (8.3-10.6); CARBON DIOXIDE LEVEL 30.0 MMOL/L (20-31); CHLORIDE LEVEL 100.0 MMOL/L (98-107); CREATININE FOR GFR 1.01 MG/DL (0.55-1.30); GLOMERULAR FILTRATION RATE 57.0 (>39); POTASSIUM SERUM 3.5 MMOL/L (3.5-5.1); SODIUM LEVEL 137.0 MMOL/L (136-145)
[2023-12-23] MEDS: PALONOSETRON 0.25 MG/5 ML VIAL IV SCH (10:48)
[2023-12-23] MEDS: MAG SULF 1GM/100ML (MAG RUN) 100 ML IV ONE (10:48)
[2023-12-23] MEDS: dexAMETHasone 4 MG/ML 1 ML VIAL IV SCH (10:48)
[2023-12-23] MEDS: NS 500 ML IV ONE (10:49)
[2023-12-23] MEDS: FOSAPREPITANT 150 MG in NS 245 ML IV SCH (11:52)
[2023-12-23] MEDS: D5W IV SCH ×2 (12:33→13:04)
[2023-12-23] MEDS: LEUCOVORIN CALCIUM IV SCH (12:33)
[2023-12-23] MEDS: IRINOTECAN HYDROCHLORIDE IV SCH (13:04)
[2023-12-23] MEDS: FLUOROURACIL IV SCH (14:46)
[2023-12-23] MEDS: NS IV SCH (14:46)
[2023-12-25] MEDS: SODIUM CHLORIDE 0.9% INJ 10 ML SYR IV PRN (13:04)
[2023-12-25 13:10] VITALS: BP 137/70; O2SAT 98
[2023-12-25 13:49] LABS: CALCIUM LEVEL 8.6 MG/DL (8.3-10.6); CARBON DIOXIDE LEVEL 30.0 MMOL/L (20-31); CHLORIDE LEVEL 102.0 MMOL/L (98-107); CREATININE FOR GFR 1.09 MG/DL (0.55-1.30); GLOMERULAR FILTRATION RATE 52.2 (>39); MAGNESIUM LEVEL 2.0 MG/DL (1.8-2.4); POTASSIUM SERUM 3.8 MMOL/L (3.5-5.1); SODIUM LEVEL 137.0 MMOL/L (136-145)
[2023-12-26] MEDS: NS (Normal Saline) 0.9% 1,000 ML IV ONE (12:25)
[2023-12-26 12:40] VITALS: BP 106/67; O2SAT 97
[2023-12-26] MEDS: [UNRECOGNIZED DRUG - OTHER] SC ONE (13:00)
[2023-12-26] MEDS: SODIUM CHLORIDE 0.9% INJ 10 ML SYR IV PRN (14:27)
[2023-12-30 09:05] VITALS: BP 100/67; O2SAT 97
[2023-12-30 09:19] LABS: ALT/SGPT 33 U/L (7.0-40); AST/SGOT 29 U/L (<34); CALCIUM LEVEL 8.8 MG/DL (8.3-10.6); CARBON DIOXIDE LEVEL 31 MMOL/L (20-31); CHLORIDE LEVEL 103 MMOL/L (98-107); CREATININE FOR GFR 0.94 MG/DL (0.55-1.30); GLOMERULAR FILTRATION RATE > 60.0 (>39); MAGNESIUM LEVEL 1.8 MG/DL (1.8-2.4); POTASSIUM SERUM 3.6 MMOL/L (3.5-5.1); SODIUM LEVEL 141 MMOL/L (136-145)
[2023-12-30] MEDS: SODIUM CHLORIDE 0.9% INJ 10 ML SYR IV PRN (09:25)
[2024-01-02 08:00] VITALS: BP 115/66; O2SAT 95
[2024-01-02 09:02] LABS: CALCIUM LEVEL 6.2 MG/DL (8.3-10.6); CARBON DIOXIDE LEVEL 25 MMOL/L (20-31); CHLORIDE LEVEL 114 MMOL/L (98-107); CREATININE FOR GFR 0.72 MG/DL (0.55-1.30); GLOMERULAR FILTRATION RATE > 60.0 (>39); MAGNESIUM LEVEL 1.3 MG/DL (1.8-2.4); POTASSIUM SERUM 2.5 MMOL/L (3.5-5.1); SODIUM LEVEL 147 MMOL/L (136-145)
[2024-01-02] MEDS: POTASSIUM CHLORIDE 10MEQ SR TABLET PO ONE (09:37)
[2024-01-02] MEDS: MAG SULF 1GM/100ML (MAG RUN) 100 ML IV SCH (09:38)
[2024-01-02] MEDS: KCL 10MEQ/100ML SWI (KRUN) 100 ML IV SCH (09:38)
[2024-01-02] MEDS: SODIUM CHLORIDE 0.9% INJ 10 ML SYR IV PRN (11:39)
[2024-01-02 12:00] VITALS: BP 115/65; O2SAT 97
[2024-01-06 08:35] LABS: BASO # 0.1 10^3/uL (0.0-0.2); BASO % 0.7 % (0.0-1.0); EOS # 0.0 10^3/uL (0.0-0.5); EOS % 0.3 % (0.0-3.0); LYMPH # 0.7 10^3/uL (1.5-5.0); LYMPH % 5.9 % (24.0-44.0); MONO # 0.8 10^3/uL (0.0-0.8); MONO % 6.4 % (2.0-8.0); NEUTROPHILS # 10.2 10^3/uL (1.5-8.5); NEUTROPHILS % 84.3 % (36.0-66.0); PLATELET COUNT, AUTOMATED 179 10^3/uL (150-450)
[2024-01-06 09:03] LABS: ALT/SGPT 19.0 U/L (7.0-40); AST/SGOT 12.0 U/L (<34); CALCIUM LEVEL 9.2 MG/DL (8.3-10.6); CARBON DIOXIDE LEVEL 28.0 MMOL/L (20-31); CHLORIDE LEVEL 107.0 MMOL/L (98-107); CREATININE FOR GFR 1.01 MG/DL (0.55-1.30); GLOMERULAR FILTRATION RATE 57.0 (>39); POTASSIUM SERUM 3.1 MMOL/L (3.5-5.1); SODIUM LEVEL 141.0 MMOL/L (136-145)
[2024-01-06 09:05] VITALS: BP 132/75; O2SAT 97
[2024-01-06] MEDS: POTASSIUM CHLORIDE 10MEQ SR TABLET PO ONE (09:57)
[2024-01-06] MEDS: dexAMETHasone 4 MG/ML 1 ML VIAL IV SCH (09:58)
[2024-01-06] MEDS: FOSAPREPITANT 150 MG in NS 245 ML IV SCH (09:58)
[2024-01-06] MEDS: PALONOSETRON 0.25 MG/5 ML VIAL IV SCH (09:58)
[2024-01-06] MEDS: KCL 10MEQ/100ML SWI (KRUN) 100 ML IV ONE (10:18)
[2024-01-06] MEDS: LEUCOVORIN CALCIUM IV SCH (11:22)
[2024-01-06] MEDS: D5W IV SCH ×2 (11:22→11:23)
[2024-01-06] MEDS: IRINOTECAN HYDROCHLORIDE IV SCH (11:23)
[2024-01-06] MEDS: FLUOROURACIL IV SCH (13:25)
[2024-01-06] MEDS: NS IV SCH (13:25)
[2024-01-08 12:04] VITALS: BP 114/71; O2SAT 99
[2024-01-08] MEDS: SODIUM CHLORIDE 0.9% INJ 10 ML SYR IV PRN (12:07)
[2024-01-08 12:51] LABS: CALCIUM LEVEL 8.6 MG/DL (8.3-10.6); CARBON DIOXIDE LEVEL 33.0 MMOL/L (20-31); CHLORIDE LEVEL 101.0 MMOL/L (98-107); CREATININE FOR GFR 1.05 MG/DL (0.55-1.30); GLOMERULAR FILTRATION RATE 54.5 (>39); POTASSIUM SERUM 4.1 MMOL/L (3.5-5.1); SODIUM LEVEL 141.0 MMOL/L (136-145)
[2024-01-09 11:00] VITALS: BP 119/72; O2SAT 95
[2024-01-09] MEDS: [UNRECOGNIZED DRUG - OTHER] SC ONE (11:17)
[2024-01-09] MEDS: NS (Normal Saline) 0.9% 1,000 ML IV ONE (11:18)
[2024-01-13] MEDS: NS (Normal Saline) 0.9% 1,000 ML IV ONE (11:20)
[2024-01-13 11:45] VITALS: BP 114/75; O2SAT 98
[2024-01-13 12:14] LABS: CALCIUM LEVEL 8.2 MG/DL (8.3-10.6); CARBON DIOXIDE LEVEL 28 MMOL/L (20-31); CHLORIDE LEVEL 102 MMOL/L (98-107); CREATININE FOR GFR 0.96 MG/DL (0.55-1.30); GLOMERULAR FILTRATION RATE > 60.0 (>39); MAGNESIUM LEVEL 1.6 MG/DL (1.8-2.4); POTASSIUM SERUM 3.6 MMOL/L (3.5-5.1); SODIUM LEVEL 136 MMOL/L (136-145)
[2024-01-13 12:29] LABS: BASO # 0.1 10^3/uL (0.0-0.2); BASO % 0.8 % (0.0-1.0); EOS # 0.2 10^3/uL (0.0-0.5); EOS % 1.5 % (0.0-3.0); LYMPH # 0.8 10^3/uL (1.5-5.0); LYMPH % 5.1 % (24.0-44.0); MONO # 1.0 10^3/uL (0.0-0.8); MONO % 6.5 % (2.0-8.0); NEUTROPHILS # 13.3 10^3/uL (1.5-8.5); NEUTROPHILS % 84.4 % (36.0-66.0); PLATELET COUNT, AUTOMATED 140 10^3/uL (150-450)
[2024-01-13] MEDS: MAG SULF 1GM/100ML (MAG RUN) 100 ML IV SCH (12:39)
[2024-01-13] MEDS: SODIUM CHLORIDE 0.9% INJ 10 ML SYR IV PRN (14:39)
[2024-01-16 12:00] VITALS: BP 104/68; O2SAT 98
[2024-01-16] MEDS: NS (Normal Saline) 0.9% 1,000 ML IV ONE (12:16)
[2024-01-16 12:42] LABS: CALCIUM LEVEL 8.1 MG/DL (8.3-10.6); CARBON DIOXIDE LEVEL 26.0 MMOL/L (20-31); CHLORIDE LEVEL 104.0 MMOL/L (98-107); CREATININE FOR GFR 1.04 MG/DL (0.55-1.30); GLOMERULAR FILTRATION RATE 55.1 (>39); MAGNESIUM LEVEL 1.8 MG/DL (1.8-2.4); POTASSIUM SERUM 3.3 MMOL/L (3.5-5.1); SODIUM LEVEL 137.0 MMOL/L (136-145)
[2024-01-16] MEDS: KCL 10MEQ/100ML SWI (KRUN) 100 ML IV SCH (13:22)
[2024-01-16] MEDS: SODIUM CHLORIDE 0.9% INJ 10 ML SYR IV PRN (15:23)
[2024-01-20 08:01] LABS: BASO # 0.1 10^3/uL (0.0-0.2); BASO % 0.8 % (0.0-1.0); EOS # 0.2 10^3/uL (0.0-0.5); EOS % 2.3 % (0.0-3.0); LYMPH # 0.9 10^3/uL (1.5-5.0); LYMPH % 8.9 % (24.0-44.0); MONO # 0.6 10^3/uL (0.0-0.8); MONO % 5.6 % (2.0-8.0); NEUTROPHILS # 8.6 10^3/uL (1.5-8.5); NEUTROPHILS % 80.9 % (36.0-66.0); PLATELET COUNT, AUTOMATED 190 10^3/uL (150-450)
[2024-01-20 08:11] VITALS: BP 134/73; O2SAT 97
[2024-01-20 08:29] LABS: ALT/SGPT 15.0 U/L (7.0-40); AST/SGOT 16.0 U/L (<34); CALCIUM LEVEL 8.5 MG/DL (8.3-10.6); CARBON DIOXIDE LEVEL 27.0 MMOL/L (20-31); CHLORIDE LEVEL 104.0 MMOL/L (98-107); CREATININE FOR GFR 1.1 MG/DL (0.55-1.30); GLOMERULAR FILTRATION RATE 51.7 (>39); MAGNESIUM LEVEL 1.5 MG/DL (1.8-2.4); POTASSIUM SERUM 3.2 MMOL/L (3.5-5.1); SODIUM LEVEL 140.0 MMOL/L (136-145)
[2024-01-20 09:10] LABS: CA19-9 TUMOR MARKER,CARBOHYDRA 39.1 U/ML (<35.0)
[2024-01-20] MEDS: MAGNESIUM SULFATE IV ONE (09:29)
[2024-01-20] MEDS: NS B BRAUN IV ONE (09:29)
[2024-01-20] MEDS: POTASSIUM CHLORIDE IV ONE (09:29)
[2024-01-20] MEDS: dexAMETHasone 4 MG/ML 1 ML VIAL IV SCH (11:40)
[2024-01-20] MEDS: FOSAPREPITANT 150 MG in NS 245 ML IV SCH (11:40)
[2024-01-20] MEDS: PALONOSETRON 0.25 MG/5 ML VIAL IV SCH (11:40)
[2024-01-20] MEDS: LEUCOVORIN CALCIUM IV SCH (12:16)
[2024-01-20] MEDS: D5W IV SCH ×2 (12:16→12:17)
[2024-01-20] MEDS: IRINOTECAN HYDROCHLORIDE IV SCH (12:17)
[2024-01-20] MEDS: NS IV SCH (13:56)
[2024-01-20] MEDS: FLUOROURACIL IV SCH (13:56)
[2024-01-22 12:45] VITALS: BP 124/80; O2SAT 99
[2024-01-22] MEDS: SODIUM CHLORIDE 0.9% INJ 10 ML SYR IV PRN (12:50)
[2024-01-22 13:33] LABS: CALCIUM LEVEL 8.1 MG/DL (8.3-10.6); CARBON DIOXIDE LEVEL 30.0 MMOL/L (20-31); CHLORIDE LEVEL 104.0 MMOL/L (98-107); CREATININE FOR GFR 1.09 MG/DL (0.55-1.30); GLOMERULAR FILTRATION RATE 52.2 (>39); POTASSIUM SERUM 3.9 MMOL/L (3.5-5.1); SODIUM LEVEL 139.0 MMOL/L (136-145)
[2024-01-23 11:30] VITALS: BP 105/64; O2SAT 98
[2024-01-23] MEDS: NS (Normal Saline) 0.9% 1,000 ML IV ONE (11:30)
[2024-01-23] MEDS: [UNRECOGNIZED DRUG - OTHER] SC ONE (12:07)
[2024-01-23] MEDS: SODIUM CHLORIDE 0.9% INJ 10 ML SYR IV PRN (13:43)
[2024-01-27 10:15] VITALS: BP 121/70; O2SAT 98
[2024-01-27 10:58] LABS: CALCIUM LEVEL 9.1 MG/DL (8.3-10.6); CARBON DIOXIDE LEVEL 26 MMOL/L (20-31); CHLORIDE LEVEL 106 MMOL/L (98-107); CREATININE FOR GFR 0.96 MG/DL (0.55-1.30); GLOMERULAR FILTRATION RATE > 60.0 (>39); MAGNESIUM LEVEL 1.6 MG/DL (1.8-2.4); POTASSIUM SERUM 3.7 MMOL/L (3.5-5.1); SODIUM LEVEL 138 MMOL/L (136-145)
[2024-01-27] MEDS: MAG SULF 1GM/100ML (MAG RUN) 100 ML IV SCH (11:43)
[2024-01-27] MEDS: SODIUM CHLORIDE 0.9% INJ 10 ML SYR IV PRN (13:48)
[2024-01-30 10:10] VITALS: BP 95/62; O2SAT 98
[2024-01-30 10:46] LABS: CALCIUM LEVEL 8.9 MG/DL (8.3-10.6); CARBON DIOXIDE LEVEL 24.0 MMOL/L (20-31); CHLORIDE LEVEL 107.0 MMOL/L (98-107); CREATININE FOR GFR 1.05 MG/DL (0.55-1.30); GLOMERULAR FILTRATION RATE 54.5 (>39); MAGNESIUM LEVEL 1.5 MG/DL (1.8-2.4); POTASSIUM SERUM 3.6 MMOL/L (3.5-5.1); SODIUM LEVEL 139.0 MMOL/L (136-145)
[2024-01-30] MEDS: MAG SULF 1GM/100ML (MAG RUN) 100 ML IV SCH (11:35)
[2024-01-30] MEDS: SODIUM CHLORIDE 0.9% INJ 10 ML SYR IV PRN (13:38)
[2024-02-03 09:59] VITALS: BP 118/60; O2SAT 97
[2024-02-03 10:06] LABS: BASO # 0.2 10^3/uL (0.0-0.2); BASO % 0.9 % (0.0-1.0); EOS # 0.2 10^3/uL (0.0-0.5); EOS % 1.0 % (0.0-3.0); LYMPH # 1.4 10^3/uL (1.5-5.0); LYMPH % 7.9 % (24.0-44.0); MONO # 0.9 10^3/uL (0.0-0.8); MONO % 5.2 % (2.0-8.0); NEUTROPHILS # 13.6 10^3/uL (1.5-8.5); NEUTROPHILS % 78.1 % (36.0-66.0); PLATELET COUNT, AUTOMATED 149 10^3/uL (150-450)
[2024-02-03 10:34] LABS: ALT/SGPT 24 U/L (7.0-40); AST/SGOT 19 U/L (<34); CALCIUM LEVEL 8.6 MG/DL (8.3-10.6); CARBON DIOXIDE LEVEL 25 MMOL/L (20-31); CHLORIDE LEVEL 111 MMOL/L (98-107); CREATININE FOR GFR 0.92 MG/DL (0.55-1.30); GLOMERULAR FILTRATION RATE > 60.0 (>39); POTASSIUM SERUM 3.6 MMOL/L (3.5-5.1); SODIUM LEVEL 142 MMOL/L (136-145)
[2024-02-03 10:46] LABS: MAGNESIUM LEVEL 1.6 MG/DL (1.8-2.4)
[2024-02-03] MEDS: MAG SULF 1GM/100ML (MAG RUN) 100 ML IV ONE (11:01)
[2024-02-03 11:06] LABS: CA19-9 TUMOR MARKER,CARBOHYDRA 45.6 U/ML (<35.0)
[2024-02-03] MEDS: dexAMETHasone 4 MG/ML 1 ML VIAL IV SCH (12:02)
[2024-02-03] MEDS: FOSAPREPITANT 150 MG in NS 245 ML IV SCH (12:02)
[2024-02-03] MEDS: PALONOSETRON 0.25 MG/5 ML VIAL IV SCH (12:02)
[2024-02-03] MEDS: LEUCOVORIN CALCIUM IV SCH (12:27)
[2024-02-03] MEDS: D5W IV SCH ×2 (12:27→12:29)
[2024-02-03] MEDS: IRINOTECAN HYDROCHLORIDE IV SCH (12:29)
[2024-02-03] MEDS: FLUOROURACIL IV SCH (14:02)
[2024-02-03] MEDS: NS IV SCH (14:02)
[2024-02-05] MEDS: SODIUM CHLORIDE 0.9% INJ 10 ML SYR IV PRN (11:35)
[2024-02-05 11:44] VITALS: BP 127/68; O2SAT 100
[2024-02-05 12:24] LABS: CALCIUM LEVEL 9.0 MG/DL (8.3-10.6); CARBON DIOXIDE LEVEL 27.0 MMOL/L (20-31); CHLORIDE LEVEL 107.0 MMOL/L (98-107); CREATININE FOR GFR 0.97 MG/DL (0.55-1.30); GLOMERULAR FILTRATION RATE 59.8 (>39); MAGNESIUM LEVEL 1.8 MG/DL (1.8-2.4); POTASSIUM SERUM 3.9 MMOL/L (3.5-5.1); SODIUM LEVEL 142.0 MMOL/L (136-145)
[2024-02-06 12:00] VITALS: BP 142/69; O2SAT 100
[2024-02-06] MEDS: NS (Normal Saline) 0.9% 1,000 ML IV ONE (12:10)
[2024-02-06] MEDS: [UNRECOGNIZED DRUG - OTHER] SC ONE (14:14)
[2024-02-06] MEDS: SODIUM CHLORIDE 0.9% INJ 10 ML SYR IV PRN (14:14)
[2024-02-10 09:30] VITALS: BP 142/62; O2SAT 98
[2024-02-10 10:31] LABS: CALCIUM LEVEL 7.1 MG/DL (8.3-10.6); CARBON DIOXIDE LEVEL 22 MMOL/L (20-31); CHLORIDE LEVEL 110 MMOL/L (98-107); CREATININE FOR GFR 0.75 MG/DL (0.55-1.30); GLOMERULAR FILTRATION RATE > 60.0 (>39); MAGNESIUM LEVEL 1.1 MG/DL (1.8-2.4); POTASSIUM SERUM 3.0 MMOL/L (3.5-5.1); SODIUM LEVEL 142 MMOL/L (136-145)
[2024-02-10] MEDS: POTASSIUM CHLORIDE 10MEQ SR TABLET PO ONE (12:26)
[2024-02-10] MEDS: KCL 10MEQ/100ML SWI (KRUN) 100 ML IV SCH (12:26)
[2024-02-10] MEDS: MAG SULF 1GM/100ML (MAG RUN) 100 ML IV SCH (12:26)
[2024-02-10] MEDS: NS (Normal Saline) 0.9% 1,000 ML IV ONE (12:27)
[2024-02-10] MEDS: SODIUM CHLORIDE 0.9% INJ 10 ML SYR IV PRN (14:43)
[2024-02-10 14:50] VITALS: BP 136/60; O2SAT 99
[2024-02-13 09:40] VITALS: BP 122/73; O2SAT 98
[2024-02-13] MEDS: NS (Normal Saline) 0.9% 1,000 ML IV ONE (09:57)
[2024-02-13 10:18] LABS: CALCIUM LEVEL 9.0 MG/DL (8.3-10.6); CARBON DIOXIDE LEVEL 26 MMOL/L (20-31); CHLORIDE LEVEL 107 MMOL/L (98-107); CREATININE FOR GFR 0.88 MG/DL (0.55-1.30); GLOMERULAR FILTRATION RATE > 60.0 (>39); POTASSIUM SERUM 3.3 MMOL/L (3.5-5.1); SODIUM LEVEL 138 MMOL/L (136-145)
[2024-02-13] MEDS: POTASSIUM CHLORIDE 10MEQ SR TABLET PO ONE (10:55)
[2024-02-13] MEDS: MAG SULF 1GM/100ML (MAG RUN) 100 ML IV SCH (10:55)
[2024-02-13] MEDS: KCL 10MEQ/100ML SWI (KRUN) 100 ML IV ONE (11:53)
[2024-02-13] MEDS: SODIUM CHLORIDE 0.9% INJ 10 ML SYR IV PRN (13:04)
[2024-02-18 12:10] VITALS: BP 128/66; O2SAT 98
[2024-02-18] MEDS: NS (Normal Saline) 0.9% 1,000 ML IV ONE (12:15)
[2024-02-18 12:58] LABS: CALCIUM LEVEL 8.2 MG/DL (8.3-10.6); CARBON DIOXIDE LEVEL 26 MMOL/L (20-31); CHLORIDE LEVEL 108 MMOL/L (98-107); CREATININE FOR GFR 0.80 MG/DL (0.55-1.30); GLOMERULAR FILTRATION RATE > 60.0 (>39); POTASSIUM SERUM 3.6 MMOL/L (3.5-5.1); SODIUM LEVEL 141 MMOL/L (136-145)
[2024-02-18] MEDS: MAG SULF 1GM/100ML (MAG RUN) 100 ML IV SCH (13:42)
[2024-02-18] MEDS: SODIUM CHLORIDE 0.9% INJ 10 ML SYR IV PRN (15:49)
[2024-02-20 10:34] LABS: CALCIUM LEVEL 8.6 MG/DL (8.3-10.6); CARBON DIOXIDE LEVEL 28 MMOL/L (20-31); CHLORIDE LEVEL 109 MMOL/L (98-107); CREATININE FOR GFR 0.86 MG/DL (0.55-1.30); GLOMERULAR FILTRATION RATE > 60.0 (>39); MAGNESIUM LEVEL 1.6 MG/DL (1.8-2.4); POTASSIUM SERUM 3.4 MMOL/L (3.5-5.1); SODIUM LEVEL 144 MMOL/L (136-145)
[2024-02-20] MEDS: POTASSIUM CHLORIDE 10MEQ SR TABLET PO ONE (10:59)
[2024-02-20] MEDS: NS (Normal Saline) 0.9% 1,000 ML IV ONE (10:59)
[2024-02-20 11:00] VITALS: BP 111/61; O2SAT 100
[2024-02-20] MEDS: MAG SULF 1GM/100ML (MAG RUN) 100 ML IV SCH (11:00)
[2024-02-20] MEDS: SODIUM CHLORIDE 0.9% INJ 10 ML SYR IV PRN (13:04)
[2024-02-24 08:34] VITALS: BP 137/79; O2SAT 98
[2024-02-24 08:45] LABS: BASO # 0.0 10^3/uL (0.0-0.2); BASO % 0.4 % (0.0-1.0); EOS # 0.3 10^3/uL (0.0-0.5); EOS % 3.1 % (0.0-3.0); LYMPH # 0.8 10^3/uL (1.5-5.0); LYMPH % 9.7 % (24.0-44.0); MONO # 0.6 10^3/uL (0.0-0.8); MONO % 7.6 % (2.0-8.0); NEUTROPHILS # 6.6 10^3/uL (1.5-8.5); NEUTROPHILS % 78.5 % (36.0-66.0); PLATELET COUNT, AUTOMATED 187 10^3/uL (150-450)
[2024-02-24 08:59] LABS: ALT/SGPT 14 U/L (7.0-40); AST/SGOT 10 U/L (<34); CALCIUM LEVEL 8.9 MG/DL (8.3-10.6); CARBON DIOXIDE LEVEL 29 MMOL/L (20-31); CHLORIDE LEVEL 109 MMOL/L (98-107); CREATININE FOR GFR 0.77 MG/DL (0.55-1.30); GLOMERULAR FILTRATION RATE > 60.0 (>39); POTASSIUM SERUM 3.0 MMOL/L (3.5-5.1); SODIUM LEVEL 144 MMOL/L (136-145)
[2024-02-24] MEDS: KCL 10MEQ/100ML SWI (KRUN) 100 ML IV ONE (09:27)
[2024-02-24] MEDS: MAG SULF 1GM/100ML (MAG RUN) 100 ML IV ONE (09:28)
[2024-02-24] MEDS: dexAMETHasone 4 MG/ML 1 ML VIAL IV SCH (10:26)
[2024-02-24] MEDS: PALONOSETRON 0.25 MG/5 ML VIAL IV SCH (10:26)
[2024-02-24] MEDS: FOSAPREPITANT 150 MG in NS 245 ML IV SCH (10:26)
[2024-02-24] MEDS: D5W IV SCH ×2 (11:35→11:37)
[2024-02-24] MEDS: LEUCOVORIN CALCIUM IV SCH (11:35)
[2024-02-24] MEDS: IRINOTECAN HYDROCHLORIDE IV SCH (11:37)
[2024-02-24] MEDS: FLUOROURACIL IV SCH (13:41)
[2024-02-24] MEDS: NS IV SCH (13:41)
[2024-02-26 11:15] VITALS: BP 122/62; O2SAT 99
[2024-02-26] MEDS: SODIUM CHLORIDE 0.9% INJ 10 ML SYR IV PRN (11:24)
[2024-02-26 12:29] LABS: CALCIUM LEVEL 8.7 MG/DL (8.3-10.6); CARBON DIOXIDE LEVEL 30 MMOL/L (20-31); CHLORIDE LEVEL 106 MMOL/L (98-107); CREATININE FOR GFR 0.91 MG/DL (0.55-1.30); GLOMERULAR FILTRATION RATE > 60.0 (>39); POTASSIUM SERUM 3.3 MMOL/L (3.5-5.1); SODIUM LEVEL 143 MMOL/L (136-145)
[2024-02-27 09:34] VITALS: BP 142/66; O2SAT 98
[2024-02-27] MEDS: [UNRECOGNIZED DRUG - OTHER] SC ONE (09:41)
[2024-02-27] MEDS: MAG SULF 1GM/100ML (MAG RUN) 100 ML IV ONE (09:41)
[2024-02-27] MEDS: KCL 10MEQ/100ML SWI (KRUN) 100 ML IV ONE (09:41)
[2024-02-27] MEDS: SODIUM CHLORIDE 0.9% INJ 10 ML SYR IV PRN (10:43)
[2024-03-02 10:02] VITALS: BP 129/72; O2SAT 96
[2024-03-02 10:44] LABS: CALCIUM LEVEL 8.8 MG/DL (8.3-10.6); CARBON DIOXIDE LEVEL 30.0 MMOL/L (20-31); CHLORIDE LEVEL 100.0 MMOL/L (98-107); CREATININE FOR GFR 0.98 MG/DL (0.55-1.30); GLOMERULAR FILTRATION RATE 59.1 (>39); MAGNESIUM LEVEL 1.4 MG/DL (1.8-2.4); POTASSIUM SERUM 3.3 MMOL/L (3.5-5.1); SODIUM LEVEL 138.0 MMOL/L (136-145)
[2024-03-02] MEDS: MAG SULF 1GM/100ML (MAG RUN) 100 ML IV ONE (11:11)
[2024-03-02] MEDS: KCL 10MEQ/100ML SWI (KRUN) 100 ML IV ONE (12:06)
[2024-03-02] MEDS: SODIUM CHLORIDE 0.9% INJ 10 ML SYR IV PRN (13:21)
[2024-03-05 09:28] VITALS: BP 132/72; O2SAT 98
[2024-03-05 10:25] LABS: CALCIUM LEVEL 9.0 MG/DL (8.3-10.6); CARBON DIOXIDE LEVEL 27.0 MMOL/L (20-31); CHLORIDE LEVEL 102.0 MMOL/L (98-107); CREATININE FOR GFR 1.06 MG/DL (0.55-1.30); GLOMERULAR FILTRATION RATE 53.9 (>39); MAGNESIUM LEVEL 1.4 MG/DL (1.8-2.4); POTASSIUM SERUM 3.0 MMOL/L (3.5-5.1); SODIUM LEVEL 140.0 MMOL/L (136-145)
[2024-03-05] MEDS: MAG SULF 1GM/100ML (MAG RUN) 100 ML IV SCH (11:01)
[2024-03-05] MEDS: KCL 10MEQ/100ML SWI (KRUN) 100 ML IV ONE (11:01)
[2024-03-05] MEDS: POTASSIUM CHLORIDE 10MEQ SR TABLET PO ONE (11:02)
[2024-03-05] MEDS: SODIUM CHLORIDE 0.9% INJ 10 ML SYR IV PRN (13:29)
[2024-03-09 09:26] LABS: BASO # 0.1 10^3/uL (0.0-0.2); BASO % 0.4 % (0.0-1.0); EOS # 0.3 10^3/uL (0.0-0.5); EOS % 1.8 % (0.0-3.0); LYMPH # 1.2 10^3/uL (1.5-5.0); LYMPH % 8.0 % (24.0-44.0); MONO # 0.7 10^3/uL (0.0-0.8); MONO % 5.0 % (2.0-8.0); NEUTROPHILS # 12.1 10^3/uL (1.5-8.5); NEUTROPHILS % 83.5 % (36.0-66.0); PLATELET COUNT, AUTOMATED 181 10^3/uL (150-450)
[2024-03-09 09:49] VITALS: BP 138/78; O2SAT 98
[2024-03-09 09:57] LABS: ALT/SGPT 23 U/L (7.0-40); AST/SGOT 18 U/L (<34); CALCIUM LEVEL 8.8 MG/DL (8.3-10.6); CARBON DIOXIDE LEVEL 28 MMOL/L (20-31); CHLORIDE LEVEL 105 MMOL/L (98-107); CREATININE FOR GFR 0.88 MG/DL (0.55-1.30); GLOMERULAR FILTRATION RATE > 60.0 (>39); POTASSIUM SERUM 3.5 MMOL/L (3.5-5.1); SODIUM LEVEL 143 MMOL/L (136-145)
[2024-03-09] MEDS: MAG SULF 1GM/100ML (MAG RUN) 100 ML IV SCH (10:36)
[2024-03-09] MEDS: PALONOSETRON 0.25 MG/5 ML VIAL IV SCH (12:29)
[2024-03-09] MEDS: FOSAPREPITANT 150 MG in NS 245 ML IV SCH (12:29)
[2024-03-09] MEDS: dexAMETHasone 4 MG/ML 1 ML VIAL IV SCH (12:29)
[2024-03-09] MEDS: D5W IV SCH ×2 (13:01→13:27)
[2024-03-09] MEDS: LEUCOVORIN CALCIUM IV SCH (13:01)
[2024-03-09] MEDS: IRINOTECAN HYDROCHLORIDE IV SCH (13:27)
[2024-03-09] MEDS: NS IV SCH (15:02)
[2024-03-09] MEDS: FLUOROURACIL IV SCH (15:02)
[2024-03-11 13:00] VITALS: BP 130/68; O2SAT 99
[2024-03-11] MEDS: SODIUM CHLORIDE 0.9% INJ 10 ML SYR IV PRN (13:00)
[2024-03-11 13:43] LABS: CALCIUM LEVEL 8.9 MG/DL (8.3-10.6); CARBON DIOXIDE LEVEL 30.0 MMOL/L (20-31); CHLORIDE LEVEL 104.0 MMOL/L (98-107); CREATININE FOR GFR 0.97 MG/DL (0.55-1.30); GLOMERULAR FILTRATION RATE 59.8 (>39); MAGNESIUM LEVEL 1.9 MG/DL (1.8-2.4); POTASSIUM SERUM 3.7 MMOL/L (3.5-5.1); SODIUM LEVEL 143.0 MMOL/L (136-145)
[2024-03-12 09:30] VITALS: BP 138/78; O2SAT 98
[2024-03-12] MEDS: NS (Normal Saline) 0.9% 1,000 ML IV ONE (09:33)
[2024-03-12] MEDS: SODIUM CHLORIDE 0.9% INJ 10 ML SYR IV PRN (11:47)
[2024-03-16 09:35] VITALS: BP 105/69; O2SAT 98
[2024-03-16 10:17] LABS: CALCIUM LEVEL 9.0 MG/DL (8.3-10.6); CARBON DIOXIDE LEVEL 30 MMOL/L (20-31); CHLORIDE LEVEL 101 MMOL/L (98-107); CREATININE FOR GFR 0.86 MG/DL (0.55-1.30); GLOMERULAR FILTRATION RATE > 60.0 (>39); POTASSIUM SERUM 3.8 MMOL/L (3.5-5.1); SODIUM LEVEL 138 MMOL/L (136-145)
[2024-03-16] MEDS: MAG SULF 1GM/100ML (MAG RUN) 100 ML IV SCH (10:40)
[2024-03-16] MEDS: SODIUM CHLORIDE 0.9% INJ 10 ML SYR IV PRN (12:41)
[2024-03-19 09:39] VITALS: BP 125/66; O2SAT 99
[2024-03-19 10:31] LABS: CALCIUM LEVEL 8.7 MG/DL (8.3-10.6); CARBON DIOXIDE LEVEL 30 MMOL/L (20-31); CHLORIDE LEVEL 104 MMOL/L (98-107); CREATININE FOR GFR 0.89 MG/DL (0.55-1.30); GLOMERULAR FILTRATION RATE > 60.0 (>39); POTASSIUM SERUM 3.1 MMOL/L (3.5-5.1); SODIUM LEVEL 141 MMOL/L (136-145)
[2024-03-19] MEDS: MAG SULF 1GM/100ML (MAG RUN) 100 ML IV SCH (10:54)
[2024-03-19] MEDS: KCL 10MEQ/100ML SWI (KRUN) 100 ML IV ONE (12:00)
[2024-03-19] MEDS: SODIUM CHLORIDE 0.9% INJ 10 ML SYR IV PRN (13:11)
[2024-03-23 09:32] LABS: BASO # 0.0 10^3/uL (0.0-0.2); BASO % 1.0 % (0.0-1.0); EOS # 0.2 10^3/uL (0.0-0.5); EOS % 4.5 % (0.0-3.0); LYMPH # 0.8 10^3/uL (1.5-5.0); LYMPH % 18.7 % (24.0-44.0); MONO # 0.4 10^3/uL (0.0-0.8); MONO % 10.0 % (2.0-8.0); NEUTROPHILS # 2.7 10^3/uL (1.5-8.5); NEUTROPHILS % 65.6 % (36.0-66.0); PLATELET COUNT, AUTOMATED 160 10^3/uL (150-450)
[2024-03-23 09:59] LABS: ALT/SGPT 22 U/L (7.0-40); AST/SGOT 19 U/L (<34); CALCIUM LEVEL 9.1 MG/DL (8.3-10.6); CARBON DIOXIDE LEVEL 29 MMOL/L (20-31); CHLORIDE LEVEL 104 MMOL/L (98-107); CREATININE FOR GFR 0.89 MG/DL (0.55-1.30); GLOMERULAR FILTRATION RATE > 60.0 (>39); POTASSIUM SERUM 3.3 MMOL/L (3.5-5.1); SODIUM LEVEL 140 MMOL/L (136-145)
[2024-03-23 10:10] LABS: MAGNESIUM LEVEL 1.4 MG/DL (1.8-2.4)
[2024-03-23 10:32] VITALS: BP 143/78; O2SAT 97
[2024-03-23 10:35] LABS: CA19-9 TUMOR MARKER,CARBOHYDRA 62.8 U/ML (<35.0)
[2024-03-23] MEDS: MAG SULF 1GM/100ML (MAG RUN) 100 ML IV SCH (11:41)
[2024-03-23] MEDS: KCL 10MEQ/100ML SWI (KRUN) 100 ML IV ONE (11:41)
[2024-03-23] MEDS: POTASSIUM CHLORIDE 10MEQ SR TABLET PO ONE (11:42)
[2024-03-23] MEDS: PALONOSETRON 0.25 MG/5 ML VIAL IV SCH (12:48)
[2024-03-23] MEDS: dexAMETHasone 4 MG/ML 1 ML VIAL IV SCH (12:48)
[2024-03-23] MEDS: FOSAPREPITANT 150 MG in NS 245 ML IV SCH (12:48)
[2024-03-23] MEDS: D5W IV SCH ×2 (13:41→14:08)
[2024-03-23] MEDS: LEUCOVORIN CALCIUM IV SCH (13:41)
[2024-03-23] MEDS: IRINOTECAN HYDROCHLORIDE IV SCH (14:08)
[2024-03-23] MEDS: FLUOROURACIL IV SCH (15:50)
[2024-03-23] MEDS: NS IV SCH (15:50)
[2024-03-25] MEDS: SODIUM CHLORIDE 0.9% INJ 10 ML SYR IV PRN (13:21)
[2024-03-25 13:30] VITALS: BP 110/63; O2SAT 100
[2024-03-25 14:17] LABS: CALCIUM LEVEL 8.9 MG/DL (8.3-10.6); CARBON DIOXIDE LEVEL 31.0 MMOL/L (20-31); CHLORIDE LEVEL 103.0 MMOL/L (98-107); CREATININE FOR GFR 1.03 MG/DL (0.55-1.30); GLOMERULAR FILTRATION RATE 55.8 (>39); MAGNESIUM LEVEL 1.7 MG/DL (1.8-2.4); POTASSIUM SERUM 3.8 MMOL/L (3.5-5.1); SODIUM LEVEL 142.0 MMOL/L (136-145)
[2024-03-26] MEDS: MAG SULF 1GM/100ML (MAG RUN) 100 ML IV ONE (09:46)
[2024-03-26 09:50] VITALS: BP 128/65; O2SAT 98
[2024-03-26] MEDS: [UNRECOGNIZED DRUG - OTHER] SC ONE (10:05)
[2024-03-26] MEDS: SODIUM CHLORIDE 0.9% INJ 10 ML SYR IV PRN (10:05)
[2024-03-30 10:07] VITALS: BP 136/74; O2SAT 97
[2024-03-30 10:28] LABS: CALCIUM LEVEL 8.6 MG/DL (8.3-10.6); CARBON DIOXIDE LEVEL 28.0 MMOL/L (20-31); CHLORIDE LEVEL 104.0 MMOL/L (98-107); CREATININE FOR GFR 0.98 MG/DL (0.55-1.30); GLOMERULAR FILTRATION RATE 59.1 (>39); MAGNESIUM LEVEL 1.4 MG/DL (1.8-2.4); POTASSIUM SERUM 3.4 MMOL/L (3.5-5.1); SODIUM LEVEL 140.0 MMOL/L (136-145)
[2024-03-30] MEDS: MAG SULF 1GM/100ML (MAG RUN) 100 ML IV ONE (11:21)
[2024-03-30] MEDS: POTASSIUM CHLORIDE 10MEQ SR TABLET PO ONE (11:21)
[2024-03-30] MEDS: NS B BRAUN IV ONE (12:19)
[2024-03-30] MEDS: MAGNESIUM SULFATE IV ONE (12:19)
[2024-03-30] MEDS: POTASSIUM CHLORIDE IV ONE (12:19)
[2024-03-30] MEDS: SODIUM CHLORIDE 0.9% INJ 10 ML SYR IV PRN (14:26)
[2024-04-02 10:18] VITALS: BP 116/70; O2SAT 99
[2024-04-02 10:25] LABS: CALCIUM LEVEL 8.6 MG/DL (8.3-10.6); CARBON DIOXIDE LEVEL 26 MMOL/L (20-31); CHLORIDE LEVEL 107 MMOL/L (98-107); CREATININE FOR GFR 0.83 MG/DL (0.55-1.30); GLOMERULAR FILTRATION RATE > 60.0 (>39); MAGNESIUM LEVEL 1.4 MG/DL (1.8-2.4); POTASSIUM SERUM 2.9 MMOL/L (3.5-5.1); SODIUM LEVEL 142 MMOL/L (136-145)
[2024-04-02] MEDS: POTASSIUM CHLORIDE 10MEQ SR TABLET PO ONE (10:50)
[2024-04-02] MEDS: MAG SULF 1GM/100ML (MAG RUN) 100 ML IV ONE (10:50)
[2024-04-02] MEDS: POTASSIUM CHLORIDE IV ONE (11:48)
[2024-04-02] MEDS: MAGNESIUM SULFATE IV ONE (11:48)
[2024-04-02] MEDS: NS B BRAUN IV ONE (11:48)
[2024-04-02] MEDS: SODIUM CHLORIDE 0.9% INJ 10 ML SYR IV PRN (13:50)
[2024-04-07 08:52] VITALS: BP 138/78; O2SAT 95
[2024-04-07 08:52] LABS: BASO # 0.1 10^3/uL (0.0-0.2); BASO % 0.5 % (0.0-1.0); EOS # 0.2 10^3/uL (0.0-0.5); EOS % 2.5 % (0.0-3.0); LYMPH # 0.9 10^3/uL (1.5-5.0); LYMPH % 9.7 % (24.0-44.0); MONO # 0.6 10^3/uL (0.0-0.8); MONO % 5.8 % (2.0-8.0); NEUTROPHILS # 7.8 10^3/uL (1.5-8.5); NEUTROPHILS % 80.6 % (36.0-66.0); PLATELET COUNT, AUTOMATED 152 10^3/uL (150-450)
[2024-04-07 09:31] LABS: ALT/SGPT 25 U/L (7.0-40); AST/SGOT 15 U/L (<34); CALCIUM LEVEL 8.8 MG/DL (8.3-10.6); CARBON DIOXIDE LEVEL 29 MMOL/L (20-31); CHLORIDE LEVEL 104 MMOL/L (98-107); CREATININE FOR GFR 0.81 MG/DL (0.55-1.30); GLOMERULAR FILTRATION RATE > 60.0 (>39); POTASSIUM SERUM 3.1 MMOL/L (3.5-5.1); SODIUM LEVEL 141 MMOL/L (136-145)
[2024-04-07] MEDS: FOSAPREPITANT 150 MG in NS 245 ML IV SCH (09:48)
[2024-04-07] MEDS: PALONOSETRON 0.25 MG/5 ML VIAL IV SCH (09:48)
[2024-04-07] MEDS: dexAMETHasone 4 MG/ML 1 ML VIAL IV SCH (09:48)
[2024-04-07] MEDS: MAG SULF 1GM/100ML (MAG RUN) 100 ML IV SCH (10:17)
[2024-04-07] MEDS: POTASSIUM CHLORIDE 10MEQ SR TABLET PO ONE (10:18)
[2024-04-07] MEDS: KCL 10MEQ/100ML SWI (KRUN) 100 ML IV ONE (11:09)
[2024-04-07] MEDS: LEUCOVORIN CALCIUM IV SCH (12:19)
[2024-04-07] MEDS: D5W IV SCH ×2 (12:19→12:47)
[2024-04-07] MEDS: IRINOTECAN HYDROCHLORIDE IV SCH (12:47)
[2024-04-07] MEDS: FLUOROURACIL IV SCH (14:25)
[2024-04-07] MEDS: NS IV SCH (14:25)
[2024-04-09] MEDS: SODIUM CHLORIDE 0.9% INJ 10 ML SYR IV PRN (11:31)
[2024-04-09 12:11] LABS: ALT/SGPT 30 U/L (7.0-40); AST/SGOT 14 U/L (<34); CALCIUM LEVEL 8.9 MG/DL (8.3-10.6); CARBON DIOXIDE LEVEL 31 MMOL/L (20-31); CHLORIDE LEVEL 105 MMOL/L (98-107); CREATININE FOR GFR 0.95 MG/DL (0.55-1.30); GLOMERULAR FILTRATION RATE > 60.0 (>39); POTASSIUM SERUM 3.5 MMOL/L (3.5-5.1); SODIUM LEVEL 142 MMOL/L (136-145)
[2024-04-10] MEDS: NS (Normal Saline) 0.9% 1,000 ML IV ONE (11:45)
[2024-04-10 12:00] VITALS: BP 118/65; O2SAT 100
[2024-04-10] MEDS: [UNRECOGNIZED DRUG - OTHER] SC ONE (13:40)
[2024-04-10] MEDS: SODIUM CHLORIDE 0.9% INJ 10 ML SYR IV PRN (13:40)
[2024-04-13 09:38] VITALS: BP 109/60; O2SAT 97
[2024-04-13 10:30] LABS: CALCIUM LEVEL 8.8 MG/DL (8.3-10.6); CARBON DIOXIDE LEVEL 30 MMOL/L (20-31); CHLORIDE LEVEL 102 MMOL/L (98-107); CREATININE FOR GFR 0.84 MG/DL (0.55-1.30); GLOMERULAR FILTRATION RATE > 60.0 (>39); POTASSIUM SERUM 3.4 MMOL/L (3.5-5.1); SODIUM LEVEL 139 MMOL/L (136-145)
[2024-04-13] MEDS: POTASSIUM CHLORIDE IV ONE (11:32)
[2024-04-13] MEDS: NS B BRAUN IV ONE (11:32)
[2024-04-13] MEDS: MAGNESIUM SULFATE IV ONE (11:32)
[2024-04-13] MEDS: SODIUM CHLORIDE 0.9% INJ 10 ML SYR IV PRN (13:41)
[2024-04-16 09:30] VITALS: BP 121/69; O2SAT 97
[2024-04-16 10:19] LABS: ALT/SGPT 28 U/L (7.0-40); AST/SGOT 14 U/L (<34); CALCIUM LEVEL 8.9 MG/DL (8.3-10.6); CARBON DIOXIDE LEVEL 27 MMOL/L (20-31); CHLORIDE LEVEL 107 MMOL/L (98-107); CREATININE FOR GFR 0.83 MG/DL (0.55-1.30); GLOMERULAR FILTRATION RATE > 60.0 (>39); POTASSIUM SERUM 3.3 MMOL/L (3.5-5.1); SODIUM LEVEL 140 MMOL/L (136-145)
[2024-04-16] MEDS: MAG SULF 1GM/100ML (MAG RUN) 100 ML IV ONE (10:50)
[2024-04-16] MEDS: POTASSIUM CHLORIDE 10MEQ SR TABLET PO ONE (10:50)
[2024-04-16] MEDS: POTASSIUM CHLORIDE IV ONE (12:14)
[2024-04-16] MEDS: NS B BRAUN IV ONE (12:14)
[2024-04-16] MEDS: MAGNESIUM SULFATE IV ONE (12:14)
[2024-04-16] MEDS: SODIUM CHLORIDE 0.9% INJ 10 ML SYR IV PRN (14:15)
[2024-04-20 08:25] LABS: BASO # 0.1 10^3/uL (0.0-0.2); BASO % 0.7 % (0.0-1.0); EOS # 0.2 10^3/uL (0.0-0.5); EOS % 1.7 % (0.0-3.0); LYMPH # 1.0 10^3/uL (1.5-5.0); LYMPH % 7.3 % (24.0-44.0); MONO # 0.8 10^3/uL (0.0-0.8); MONO % 5.8 % (2.0-8.0); NEUTROPHILS # 10.9 10^3/uL (1.5-8.5); NEUTROPHILS % 82.0 % (36.0-66.0); PLATELET COUNT, AUTOMATED 161 10^3/uL (150-450)
[2024-04-20 08:43] VITALS: BP 139/72; O2SAT 92
[2024-04-20 08:56] LABS: ALT/SGPT 23 U/L (7.0-40); AST/SGOT 10 U/L (<34); CALCIUM LEVEL 8.7 MG/DL (8.3-10.6); CARBON DIOXIDE LEVEL 26 MMOL/L (20-31); CHLORIDE LEVEL 108 MMOL/L (98-107); CREATININE FOR GFR 0.95 MG/DL (0.55-1.30); GLOMERULAR FILTRATION RATE > 60.0 (>39); POTASSIUM SERUM 3.1 MMOL/L (3.5-5.1); SODIUM LEVEL 144 MMOL/L (136-145)
[2024-04-20] MEDS: MAG SULF 1GM/100ML (MAG RUN) 100 ML IV ONE (09:34)
[2024-04-20] MEDS: NS B BRAUN IV ONE (10:25)
[2024-04-20] MEDS: MAGNESIUM SULFATE IV ONE (10:25)
[2024-04-20] MEDS: POTASSIUM CHLORIDE IV ONE (10:25)
[2024-04-20] MEDS: PALONOSETRON 0.25 MG/5 ML VIAL IV SCH (12:16)
[2024-04-20] MEDS: FOSAPREPITANT 150 MG in NS 245 ML IV SCH (12:16)
[2024-04-20] MEDS: dexAMETHasone 4 MG/ML 1 ML VIAL IV SCH (12:16)
[2024-04-20] MEDS: LEUCOVORIN CALCIUM IV SCH (12:59)
[2024-04-20] MEDS: D5W IV SCH ×2 (12:59→13:02)
[2024-04-20] MEDS: IRINOTECAN HYDROCHLORIDE IV SCH (13:02)
[2024-04-20] MEDS: POTASSIUM CHLORIDE 10MEQ SR TABLET PO ONE (14:33)
[2024-04-20] MEDS: NS IV SCH (14:35)
[2024-04-20] MEDS: FLUOROURACIL IV SCH (14:35)
[2024-04-22] MEDS: SODIUM CHLORIDE 0.9% INJ 10 ML SYR IV PRN (12:14)
[2024-04-22 13:00] LABS: ALT/SGPT 22 U/L (7.0-40); AST/SGOT 9 U/L (<34); CALCIUM LEVEL 8.7 MG/DL (8.3-10.6); CARBON DIOXIDE LEVEL 28 MMOL/L (20-31); CHLORIDE LEVEL 105 MMOL/L (98-107); CREATININE FOR GFR 0.87 MG/DL (0.55-1.30); GLOMERULAR FILTRATION RATE > 60.0 (>39); MAGNESIUM LEVEL 1.6 MG/DL (1.8-2.4); POTASSIUM SERUM 3.3 MMOL/L (3.5-5.1); SODIUM LEVEL 141 MMOL/L (136-145)
[2024-04-23 09:25] VITALS: BP 125/72; O2SAT 98
[2024-04-23] MEDS: MAGNESIUM SULFATE IV ONE (09:42)
[2024-04-23] MEDS: POTASSIUM CHLORIDE IV ONE (09:42)
[2024-04-23] MEDS: NS B BRAUN IV ONE (09:42)
[2024-04-23] MEDS: POTASSIUM CHLORIDE 10MEQ SR TABLET PO ONE (09:42)
[2024-04-23] MEDS: [UNRECOGNIZED DRUG - OTHER] SC ONE (09:43)
[2024-04-23] MEDS: SODIUM CHLORIDE 0.9% INJ 10 ML SYR IV PRN (11:53)
[2024-04-27 09:53] VITALS: BP 139/73; O2SAT 99
[2024-04-27 10:12] LABS: CALCIUM LEVEL 8.6 MG/DL (8.3-10.6); CARBON DIOXIDE LEVEL 28 MMOL/L (20-31); CHLORIDE LEVEL 103 MMOL/L (98-107); CREATININE FOR GFR 0.89 MG/DL (0.55-1.30); GLOMERULAR FILTRATION RATE > 60.0 (>39); MAGNESIUM LEVEL 1.4 MG/DL (1.8-2.4); POTASSIUM SERUM 3.3 MMOL/L (3.5-5.1); SODIUM LEVEL 139 MMOL/L (136-145)
[2024-04-27] MEDS: MAG SULF 1GM/100ML (MAG RUN) 100 ML IV ONE (10:59)
[2024-04-27] MEDS: NS B BRAUN IV ONE (12:01)
[2024-04-27] MEDS: MAGNESIUM SULFATE IV ONE (12:01)
[2024-04-27] MEDS: POTASSIUM CHLORIDE IV ONE (12:01)
[2024-04-27] MEDS: SODIUM CHLORIDE 0.9% INJ 10 ML SYR IV PRN (14:02)
[2024-04-30 09:45] VITALS: BP 117/71; O2SAT 96
[2024-04-30 10:29] LABS: CALCIUM LEVEL 8.9 MG/DL (8.3-10.6); CARBON DIOXIDE LEVEL 28 MMOL/L (20-31); CHLORIDE LEVEL 107 MMOL/L (98-107); CREATININE FOR GFR 0.91 MG/DL (0.55-1.30); GLOMERULAR FILTRATION RATE > 60.0 (>39); MAGNESIUM LEVEL 1.3 MG/DL (1.8-2.4); POTASSIUM SERUM 2.9 MMOL/L (3.5-5.1); SODIUM LEVEL 142 MMOL/L (136-145)
[2024-04-30] MEDS: POTASSIUM CHLORIDE 10MEQ SR TABLET PO ONE (11:10)
[2024-04-30] MEDS: MAG SULF 1GM/100ML (MAG RUN) 100 ML IV ONE (11:11)
[2024-04-30] MEDS: POTASSIUM CHLORIDE IV ONE (12:07)
[2024-04-30] MEDS: NS B BRAUN IV ONE (12:07)
[2024-04-30] MEDS: MAGNESIUM SULFATE IV ONE (12:07)
[2024-04-30] MEDS: SODIUM CHLORIDE 0.9% INJ 10 ML SYR IV PRN (14:11)
[2024-05-04 07:41] LABS: BASO # 0.1 10^3/uL (0.0-0.2); BASO % 0.8 % (0.0-1.0); EOS # 0.3 10^3/uL (0.0-0.5); EOS % 1.9 % (0.0-3.0); LYMPH # 1.0 10^3/uL (1.5-5.0); LYMPH % 7.6 % (24.0-44.0); MONO # 0.9 10^3/uL (0.0-0.8); MONO % 6.4 % (2.0-8.0); NEUTROPHILS # 11.0 10^3/uL (1.5-8.5); NEUTROPHILS % 81.0 % (36.0-66.0); PLATELET COUNT, AUTOMATED 146 10^3/uL (150-450)
[2024-05-04 08:00] VITALS: BP 130/75; O2SAT 96
[2024-05-04 08:13] LABS: MAGNESIUM LEVEL 1.4 MG/DL (1.8-2.4)
[2024-05-04 08:29] LABS: ALT/SGPT 22 U/L (7.0-40); AST/SGOT 12 U/L (<34); CALCIUM LEVEL 8.8 MG/DL (8.3-10.6); CARBON DIOXIDE LEVEL 27 MMOL/L (20-31); CHLORIDE LEVEL 104 MMOL/L (98-107); CREATININE FOR GFR 0.90 MG/DL (0.55-1.30); GLOMERULAR FILTRATION RATE > 60.0 (>39); POTASSIUM SERUM 2.5 MMOL/L (3.5-5.1); SODIUM LEVEL 141 MMOL/L (136-145)
[2024-05-04 08:35] LABS: CA19-9 TUMOR MARKER,CARBOHYDRA 109.9 U/ML (<35.0)
[2024-05-04] MEDS: MAG SULF 1GM/100ML (MAG RUN) 100 ML IV SCH (08:52)
[2024-05-04] MEDS: KCL 10MEQ/100ML SWI (KRUN) 100 ML IV SCH (09:56)
[2024-05-04] MEDS: PALONOSETRON 0.25 MG/5 ML VIAL IV SCH (11:25)
[2024-05-04] MEDS: dexAMETHasone 4 MG/ML 1 ML VIAL IV SCH (11:25)
[2024-05-04] MEDS: FOSAPREPITANT 150 MG in NS 245 ML IV SCH (11:25)
[2024-05-04] MEDS: D5W IV SCH ×2 (12:10→12:39)
[2024-05-04] MEDS: LEUCOVORIN CALCIUM IV SCH (12:10)
[2024-05-04] MEDS: IRINOTECAN HYDROCHLORIDE IV SCH (12:39)
[2024-05-04] MEDS: NS IV SCH (14:18)
[2024-05-04] MEDS: FLUOROURACIL IV SCH (14:18)
[2024-05-06] MEDS: SODIUM CHLORIDE 0.9% INJ 10 ML SYR IV PRN (11:52)
[2024-05-06 12:00] VITALS: BP 119/70; O2SAT 98
[2024-05-06 12:42] LABS: CALCIUM LEVEL 8.7 MG/DL (8.3-10.6); CARBON DIOXIDE LEVEL 30.0 MMOL/L (20-31); CHLORIDE LEVEL 103.0 MMOL/L (98-107); CREATININE FOR GFR 0.97 MG/DL (0.55-1.30); GLOMERULAR FILTRATION RATE 59.8 (>39); MAGNESIUM LEVEL 1.9 MG/DL (1.8-2.4); POTASSIUM SERUM 3.6 MMOL/L (3.5-5.1); SODIUM LEVEL 141.0 MMOL/L (136-145)
[2024-05-07 09:30] VITALS: BP 129/73; O2SAT 98
[2024-05-07] MEDS: [UNRECOGNIZED DRUG - OTHER] SC ONE (09:38)
[2024-05-07] MEDS: NS (Normal Saline) 0.9% 1,000 ML IV ONE (09:38)
[2024-05-11 09:30] VITALS: BP 131/61; O2SAT 98
[2024-05-11 10:29] LABS: CALCIUM LEVEL 8.9 MG/DL (8.3-10.6); CARBON DIOXIDE LEVEL 28 MMOL/L (20-31); CHLORIDE LEVEL 102 MMOL/L (98-107); CREATININE FOR GFR 0.89 MG/DL (0.55-1.30); GLOMERULAR FILTRATION RATE > 60.0 (>39); MAGNESIUM LEVEL 1.4 MG/DL (1.8-2.4); POTASSIUM SERUM 4.4 MMOL/L (3.5-5.1); SODIUM LEVEL 136 MMOL/L (136-145)
[2024-05-11] MEDS: NS (Normal Saline) 0.9% 1,000 ML IV ONE (10:40)
[2024-05-11] MEDS: MAG SULF 1GM/100ML (MAG RUN) 100 ML IV SCH (10:43)
[2024-05-11] MEDS: SODIUM CHLORIDE 0.9% INJ 10 ML SYR IV PRN (12:52)
[2024-05-13 09:25] VITALS: BP 118/71; O2SAT 98
[2024-05-13 10:04] LABS: CALCIUM LEVEL 9.2 MG/DL (8.3-10.6); CARBON DIOXIDE LEVEL 26 MMOL/L (20-31); CHLORIDE LEVEL 107 MMOL/L (98-107); CREATININE FOR GFR 0.87 MG/DL (0.55-1.30); GLOMERULAR FILTRATION RATE > 60.0 (>39); MAGNESIUM LEVEL 1.6 MG/DL (1.8-2.4); POTASSIUM SERUM 4.2 MMOL/L (3.5-5.1); SODIUM LEVEL 140 MMOL/L (136-145)
[2024-05-13] MEDS: NS (Normal Saline) 0.9% 1,000 ML IV ONE (10:44)
[2024-05-13] MEDS: MAG SULF 1GM/100ML (MAG RUN) 100 ML IV SCH (10:45)
[2024-05-13] MEDS: SODIUM CHLORIDE 0.9% INJ 10 ML SYR IV PRN (13:00)
[2024-05-18 08:04] LABS: BASO # 0.1 10^3/uL (0.0-0.2); BASO % 1.0 % (0.0-1.0); EOS # 0.4 10^3/uL (0.0-0.5); EOS % 2.9 % (0.0-3.0); LYMPH # 1.0 10^3/uL (1.5-5.0); LYMPH % 7.7 % (24.0-44.0); MONO # 0.8 10^3/uL (0.0-0.8); MONO % 6.3 % (2.0-8.0); NEUTROPHILS # 9.8 10^3/uL (1.5-8.5); NEUTROPHILS % 79.3 % (36.0-66.0); PLATELET COUNT, AUTOMATED 171 10^3/uL (150-450)
[2024-05-18 08:08] VITALS: BP 136/80; O2SAT 98
[2024-05-18 08:52] LABS: ALT/SGPT 21 U/L (7.0-40); AST/SGOT 11 U/L (<34); CALCIUM LEVEL 8.6 MG/DL (8.3-10.6); CARBON DIOXIDE LEVEL 22 MMOL/L (20-31); CHLORIDE LEVEL 108 MMOL/L (98-107); CREATININE FOR GFR 0.92 MG/DL (0.55-1.30); GLOMERULAR FILTRATION RATE > 60.0 (>39); MAGNESIUM LEVEL 1.6 MG/DL (1.8-2.4); POTASSIUM SERUM 4.0 MMOL/L (3.5-5.1); SODIUM LEVEL 138 MMOL/L (136-145)
[2024-05-18 09:00] LABS: CA19-9 TUMOR MARKER,CARBOHYDRA 153.0 U/ML (<35.0)
[2024-05-18] MEDS: PALONOSETRON 0.25 MG/5 ML VIAL IV SCH (09:23)
[2024-05-18] MEDS: FOSAPREPITANT 150 MG in NS 245 ML IV SCH (09:23)
[2024-05-18] MEDS: dexAMETHasone 4 MG/ML 1 ML VIAL IV SCH (09:24)
[2024-05-18] MEDS: MAG SULF 1GM/100ML (MAG RUN) 100 ML IV ONE (10:16)
[2024-05-18] MEDS: LEUCOVORIN CALCIUM IV SCH (10:46)
[2024-05-18] MEDS: D5W IV SCH ×2 (10:46→11:35)
[2024-05-18] MEDS: IRINOTECAN HYDROCHLORIDE IV SCH (11:35)
[2024-05-18] MEDS: FLUOROURACIL IV SCH (13:34)
[2024-05-18] MEDS: NS IV SCH (13:34)
[2024-05-20 11:51] VITALS: BP 113/68; O2SAT 96
[2024-05-20] MEDS: SODIUM CHLORIDE 0.9% INJ 10 ML SYR IV PRN (11:51)
[2024-05-20 13:11] LABS: CALCIUM LEVEL 8.9 MG/DL (8.3-10.6); CARBON DIOXIDE LEVEL 25.0 MMOL/L (20-31); CHLORIDE LEVEL 106.0 MMOL/L (98-107); CREATININE FOR GFR 1.19 MG/DL (0.55-1.30); GLOMERULAR FILTRATION RATE 47.2 (>39); MAGNESIUM LEVEL 2.0 MG/DL (1.8-2.4); POTASSIUM SERUM 4.7 MMOL/L (3.5-5.1); SODIUM LEVEL 139.0 MMOL/L (136-145)
[2024-05-21 09:47] VITALS: BP 123/71; O2SAT 97
[2024-05-21] MEDS: NS (Normal Saline) 0.9% 1,000 ML IV ONE (09:53)
[2024-05-21] MEDS: SODIUM CHLORIDE 0.9% INJ 10 ML SYR IV PRN (12:11)
[2024-05-21] MEDS: [UNRECOGNIZED DRUG - OTHER] SC ONE (12:11)
[2024-05-25 09:30] VITALS: BP 143/81; O2SAT 97
[2024-05-25 10:20] LABS: CALCIUM LEVEL 9.1 MG/DL (8.3-10.6); CARBON DIOXIDE LEVEL 24.0 MMOL/L (20-31); CHLORIDE LEVEL 102.0 MMOL/L (98-107); CREATININE FOR GFR 1.04 MG/DL (0.55-1.30); GLOMERULAR FILTRATION RATE 55.1 (>39); MAGNESIUM LEVEL 1.6 MG/DL (1.8-2.4); POTASSIUM SERUM 4.7 MMOL/L (3.5-5.1); SODIUM LEVEL 135.0 MMOL/L (136-145)
[2024-05-25] MEDS: NS (Normal Saline) 0.9% 1,000 ML IV ONE (11:15)
[2024-05-25] MEDS: MAG SULF 1GM/100ML (MAG RUN) 100 ML IV ONE (11:31)
[2024-05-25] MEDS: SODIUM CHLORIDE 0.9% INJ 10 ML SYR IV PRN (13:46)
[2024-05-27 11:13] VITALS: BP 135/79; O2SAT 96
[2024-05-27 12:50] LABS: ALT/SGPT 14 U/L (7.0-40); AST/SGOT < 8 U/L (<34); CALCIUM LEVEL 9.4 MG/DL (8.3-10.6); CARBON DIOXIDE LEVEL 25 MMOL/L (20-31); CHLORIDE LEVEL 105 MMOL/L (98-107); CREATININE FOR GFR 0.95 MG/DL (0.55-1.30); GLOMERULAR FILTRATION RATE > 60.0 (>39); MAGNESIUM LEVEL 1.6 MG/DL (1.8-2.4); POTASSIUM SERUM 4.2 MMOL/L (3.5-5.1); SODIUM LEVEL 138 MMOL/L (136-145)
[2024-05-28 09:20] VITALS: BP 112/60; O2SAT 98
[2024-05-28] MEDS: MAG SULF 1GM/100ML (MAG RUN) 100 ML IV ONE (09:33)
[2024-05-28] MEDS: NS (Normal Saline) 0.9% 1,000 ML IV ONE (09:34)
[2024-05-28] MEDS: SODIUM CHLORIDE 0.9% INJ 10 ML SYR IV PRN (10:41)
[2024-06-01 07:56] LABS: BASO # 0.1 10^3/uL (0.0-0.2); BASO % 0.6 % (0.0-1.0); EOS # 0.3 10^3/uL (0.0-0.5); EOS % 1.1 % (0.0-3.0); LYMPH # 0.7 10^3/uL (1.5-5.0); LYMPH % 3.2 % (24.0-44.0); MONO # 1.2 10^3/uL (0.0-0.8); MONO % 5.2 % (2.0-8.0); NEUTROPHILS # 19.7 10^3/uL (1.5-8.5); NEUTROPHILS % 86.5 % (36.0-66.0); PLATELET COUNT, AUTOMATED 188 10^3/uL (150-450)
[2024-06-01 08:01] VITALS: BP 124/72; O2SAT 100
[2024-06-01 08:27] LABS: ALT/SGPT 18.0 U/L (7.0-40); AST/SGOT 9.0 U/L (<34); CALCIUM LEVEL 9.0 MG/DL (8.3-10.6); CARBON DIOXIDE LEVEL 22.0 MMOL/L (20-31); CHLORIDE LEVEL 108.0 MMOL/L (98-107); CREATININE FOR GFR 1.0 MG/DL (0.55-1.30); GLOMERULAR FILTRATION RATE 57.7 (>39); POTASSIUM SERUM 3.2 MMOL/L (3.5-5.1); SODIUM LEVEL 140.0 MMOL/L (136-145)
[2024-06-01] MEDS: MAG SULF 1GM/100ML (MAG RUN) 100 ML IV SCH (09:11)
[2024-06-01] MEDS: KCL 10MEQ/100ML SWI (KRUN) 100 ML IV SCH (09:11)
[2024-06-01] MEDS: FOSAPREPITANT 150 MG in NS 245 ML IV SCH (11:16)
[2024-06-01] MEDS: dexAMETHasone 4 MG/ML 1 ML VIAL IV SCH (11:17)
[2024-06-01] MEDS: PALONOSETRON 0.25 MG/5 ML VIAL IV SCH (11:18)
[2024-06-01] MEDS: LEUCOVORIN CALCIUM IV SCH (11:41)
[2024-06-01] MEDS: D5W IV SCH ×2 (11:41→11:42)
[2024-06-01] MEDS: IRINOTECAN HYDROCHLORIDE IV SCH (11:42)
[2024-06-01] MEDS: NS IV SCH (13:30)
[2024-06-01] MEDS: FLUOROURACIL IV SCH (13:30)
[2024-06-03] MEDS: SODIUM CHLORIDE 0.9% INJ 10 ML SYR IV PRN (12:48)
[2024-06-03 13:35] LABS: CALCIUM LEVEL 8.5 MG/DL (8.3-10.6); CARBON DIOXIDE LEVEL 25.0 MMOL/L (20-31); CHLORIDE LEVEL 105.0 MMOL/L (98-107); CREATININE FOR GFR 1.16 MG/DL (0.55-1.30); GLOMERULAR FILTRATION RATE 48.6 (>39); MAGNESIUM LEVEL 1.9 MG/DL (1.8-2.4); POTASSIUM SERUM 3.7 MMOL/L (3.5-5.1); SODIUM LEVEL 139.0 MMOL/L (136-145)
[2024-06-04 09:30] VITALS: BP 122/71; O2SAT 98
[2024-06-04] MEDS: NS (Normal Saline) 0.9% 1,000 ML IV ONE (09:47)
[2024-06-04] MEDS: SODIUM CHLORIDE 0.9% INJ 10 ML SYR IV PRN (11:55)
[2024-06-08 09:20] VITALS: BP 124/78; O2SAT 98
[2024-06-08 10:04] LABS: CALCIUM LEVEL 8.5 MG/DL (8.3-10.6); CARBON DIOXIDE LEVEL 27 MMOL/L (20-31); CHLORIDE LEVEL 101 MMOL/L (98-107); CREATININE FOR GFR 0.89 MG/DL (0.55-1.30); GLOMERULAR FILTRATION RATE > 60.0 (>39); POTASSIUM SERUM 3.6 MMOL/L (3.5-5.1); SODIUM LEVEL 136 MMOL/L (136-145)
[2024-06-08] MEDS: NS (Normal Saline) 0.9% 1,000 ML IV ONE (10:45)
[2024-06-08] MEDS: MAG SULF 1GM/100ML (MAG RUN) 100 ML IV ONE (10:46)
[2024-06-08] MEDS: SODIUM CHLORIDE 0.9% INJ 10 ML SYR IV PRN (12:54)
[2024-06-11 10:37] LABS: CALCIUM LEVEL 8.3 MG/DL (8.3-10.6); CARBON DIOXIDE LEVEL 26 MMOL/L (20-31); CHLORIDE LEVEL 105 MMOL/L (98-107); CREATININE FOR GFR 0.85 MG/DL (0.55-1.30); GLOMERULAR FILTRATION RATE > 60.0 (>39); MAGNESIUM LEVEL 1.4 MG/DL (1.8-2.4); POTASSIUM SERUM 2.9 MMOL/L (3.5-5.1); SODIUM LEVEL 139 MMOL/L (136-145)
[2024-06-11 10:46] VITALS: BP 97/69; O2SAT 99
[2024-06-11] MEDS: POTASSIUM CHLORIDE IV ONE (11:50)
[2024-06-11] MEDS: MAGNESIUM SULFATE IV ONE (11:50)
[2024-06-11] MEDS: NS B BRAUN IV ONE (11:50)
[2024-06-11] MEDS: SODIUM CHLORIDE 0.9% INJ 10 ML SYR IV PRN (15:14)
[2024-06-15 08:12] LABS: BASO # 0.1 10^3/uL (0.0-0.2); BASO % 1.1 % (0.0-1.0); EOS # 0.2 10^3/uL (0.0-0.5); EOS % 3.6 % (0.0-3.0); LYMPH # 0.6 10^3/uL (1.5-5.0); LYMPH % 14.4 % (24.0-44.0); MONO # 0.4 10^3/uL (0.0-0.8); MONO % 9.7 % (2.0-8.0); NEUTROPHILS # 3.1 10^3/uL (1.5-8.5); NEUTROPHILS % 70.7 % (36.0-66.0); PLATELET COUNT, AUTOMATED 179 10^3/uL (150-450)
[2024-06-15 08:22] VITALS: BP 125/77; O2SAT 99
[2024-06-15 09:02] LABS: ALT/SGPT 21 U/L (7.0-40); AST/SGOT 15 U/L (<34); CALCIUM LEVEL 8.5 MG/DL (8.3-10.6); CARBON DIOXIDE LEVEL 25 MMOL/L (20-31); CHLORIDE LEVEL 109 MMOL/L (98-107); CREATININE FOR GFR 0.84 MG/DL (0.55-1.30); GLOMERULAR FILTRATION RATE > 60.0 (>39); MAGNESIUM LEVEL 1.4 MG/DL (1.8-2.4); POTASSIUM SERUM 2.8 MMOL/L (3.5-5.1); SODIUM LEVEL 142 MMOL/L (136-145)
[2024-06-15 09:15] LABS: CA19-9 TUMOR MARKER,CARBOHYDRA 155.6 U/ML (<35.0)
[2024-06-15] MEDS: MAG SULF 1GM/100ML (MAG RUN) 100 ML IV ONE (09:37)
[2024-06-15] MEDS: KCL 10MEQ/100ML SWI (KRUN) 100 ML IV SCH (09:38)
[2024-06-15] MEDS: FOSAPREPITANT 150 MG in NS 245 ML IV SCH (11:36)
[2024-06-15] MEDS: dexAMETHasone 4 MG/ML 1 ML VIAL IV SCH (11:36)
[2024-06-15] MEDS: PALONOSETRON 0.25 MG/5 ML VIAL IV SCH (11:36)
[2024-06-15] MEDS: LEUCOVORIN CALCIUM IV SCH (12:18)
[2024-06-15] MEDS: D5W IV SCH ×2 (12:18→12:22)
[2024-06-15] MEDS: IRINOTECAN HYDROCHLORIDE IV SCH (12:22)
[2024-06-15] MEDS: NS IV SCH (14:10)
[2024-06-15] MEDS: FLUOROURACIL IV SCH (14:10)
[2024-06-17] MEDS: SODIUM CHLORIDE 0.9% INJ 10 ML SYR IV PRN (13:15)
[2024-06-17 13:25] VITALS: BP 122/59; O2SAT 96
[2024-06-17 14:01] LABS: CALCIUM LEVEL 8.5 MG/DL (8.3-10.6); CARBON DIOXIDE LEVEL 28 MMOL/L (20-31); CHLORIDE LEVEL 106 MMOL/L (98-107); CREATININE FOR GFR 0.96 MG/DL (0.55-1.30); GLOMERULAR FILTRATION RATE > 60.0 (>39); MAGNESIUM LEVEL 1.6 MG/DL (1.8-2.4); POTASSIUM SERUM 3.0 MMOL/L (3.5-5.1); SODIUM LEVEL 144 MMOL/L (136-145)
[2024-06-18 09:30] VITALS: BP 117/69; O2SAT 99
[2024-06-18] MEDS: POTASSIUM CHLORIDE 10MEQ SR TABLET PO ONE (09:52)
[2024-06-18] MEDS: POTASSIUM CHLORIDE IV ONE (09:53)
[2024-06-18] MEDS: MAGNESIUM SULFATE IV ONE (09:53)
[2024-06-18] MEDS: NS B BRAUN IV ONE (09:53)
[2024-06-18] MEDS: SODIUM CHLORIDE 0.9% INJ 10 ML SYR IV PRN (11:57)
[2024-06-18] MEDS: [UNRECOGNIZED DRUG - OTHER] SC ONE (11:58)
[2024-06-22 09:41] VITALS: BP 101/61; O2SAT 96
[2024-06-22 10:21] LABS: CALCIUM LEVEL 8.3 MG/DL (8.3-10.6); CARBON DIOXIDE LEVEL 29.0 MMOL/L (20-31); CHLORIDE LEVEL 103.0 MMOL/L (98-107); CREATININE FOR GFR 1.03 MG/DL (0.55-1.30); GLOMERULAR FILTRATION RATE 55.8 (>39); MAGNESIUM LEVEL 1.3 MG/DL (1.8-2.4); POTASSIUM SERUM 2.8 MMOL/L (3.5-5.1); SODIUM LEVEL 137.0 MMOL/L (136-145)
[2024-06-22] MEDS: KCL 10MEQ/100ML SWI (KRUN) 100 ML IV ONE (11:11)
[2024-06-22] MEDS: NS B BRAUN IV ONE (12:07)
[2024-06-22] MEDS: POTASSIUM CHLORIDE IV ONE (12:07)
[2024-06-22] MEDS: MAGNESIUM SULFATE IV ONE (12:07)
[2024-06-22] MEDS: SODIUM CHLORIDE 0.9% INJ 10 ML SYR IV PRN (14:16)
[2024-06-25 09:40] VITALS: BP 100/60; O2SAT 96
[2024-06-25 10:25] LABS: CALCIUM LEVEL 8.4 MG/DL (8.3-10.6); CARBON DIOXIDE LEVEL 28 MMOL/L (20-31); CHLORIDE LEVEL 106 MMOL/L (98-107); CREATININE FOR GFR 0.92 MG/DL (0.55-1.30); GLOMERULAR FILTRATION RATE > 60.0 (>39); MAGNESIUM LEVEL 1.2 MG/DL (1.8-2.4); POTASSIUM SERUM 2.7 MMOL/L (3.5-5.1); SODIUM LEVEL 141 MMOL/L (136-145)
[2024-06-25] MEDS: KCL 10MEQ/100ML SWI (KRUN) 100 ML IV SCH (11:31)
[2024-06-25] MEDS: MAG SULF 1GM/100ML (MAG RUN) 100 ML IV SCH (11:32)
[2024-06-25] MEDS: POTASSIUM CHLORIDE 10MEQ SR TABLET PO ONE (11:32)
[2024-06-25] MEDS: SODIUM CHLORIDE 0.9% INJ 10 ML SYR IV PRN (13:30)
[2024-06-29 07:56] LABS: BASO # 0.1 10^3/uL (0.0-0.2); BASO % 0.6 % (0.0-1.0); EOS # 0.2 10^3/uL (0.0-0.5); EOS % 1.6 % (0.0-3.0); LYMPH # 0.9 10^3/uL (1.5-5.0); LYMPH % 8.7 % (24.0-44.0); MONO # 0.9 10^3/uL (0.0-0.8); MONO % 8.6 % (2.0-8.0); NEUTROPHILS # 7.9 10^3/uL (1.5-8.5); NEUTROPHILS % 79.1 % (36.0-66.0); PLATELET COUNT, AUTOMATED 136 10^3/uL (150-450)
[2024-06-29 08:04] VITALS: BP 130/69; O2SAT 99
[2024-06-29 08:29] LABS: ALT/SGPT 15.0 U/L (7.0-40); AST/SGOT 11.0 U/L (<34); CALCIUM LEVEL 8.7 MG/DL (8.3-10.6); CARBON DIOXIDE LEVEL 28.0 MMOL/L (20-31); CHLORIDE LEVEL 106.0 MMOL/L (98-107); CREATININE FOR GFR 0.98 MG/DL (0.55-1.30); GLOMERULAR FILTRATION RATE 58.9 (>39); POTASSIUM SERUM 2.8 MMOL/L (3.5-5.1); SODIUM LEVEL 142.0 MMOL/L (136-145)
[2024-06-29] MEDS: MAG SULF 1GM/100ML (MAG RUN) 100 ML IV ONE (08:57)
[2024-06-29] MEDS: KCL 10MEQ/100ML SWI (KRUN) 100 ML IV SCH (08:57)
[2024-06-29 09:00] LABS: CA19-9 TUMOR MARKER,CARBOHYDRA 194.0 U/ML (<35.0)
[2024-06-29] MEDS: FOSAPREPITANT 150 MG in NS 245 ML IV SCH (10:55)
[2024-06-29] MEDS: dexAMETHasone 4 MG/ML 1 ML VIAL IV SCH (10:56)
[2024-06-29] MEDS: PALONOSETRON 0.25 MG/5 ML VIAL IV SCH (10:56)
[2024-06-29] MEDS: LEUCOVORIN CALCIUM IV SCH (11:38)
[2024-06-29] MEDS: D5W IV SCH ×2 (11:38→11:41)
[2024-06-29] MEDS: IRINOTECAN HYDROCHLORIDE IV SCH (11:41)
[2024-06-29] MEDS: FLUOROURACIL IV SCH (13:23)
[2024-06-29] MEDS: NS IV SCH (13:23)
[2024-07-01] MEDS: SODIUM CHLORIDE 0.9% INJ 10 ML SYR IV PRN (11:08)
[2024-07-01 11:15] VITALS: BP 112/66; O2SAT 97
[2024-07-01 11:59] LABS: CALCIUM LEVEL 8.4 MG/DL (8.3-10.6); CARBON DIOXIDE LEVEL 29.0 MMOL/L (20-31); CHLORIDE LEVEL 104.0 MMOL/L (98-107); CREATININE FOR GFR 1.0 MG/DL (0.55-1.30); GLOMERULAR FILTRATION RATE 57.5 (>39); MAGNESIUM LEVEL 1.9 MG/DL (1.8-2.4); POTASSIUM SERUM 3.3 MMOL/L (3.5-5.1); SODIUM LEVEL 141.0 MMOL/L (136-145)
[2024-07-02 09:30] VITALS: BP 132/77; O2SAT 97
[2024-07-02] MEDS: KCL 10MEQ/100ML SWI (KRUN) 100 ML IV ONE (09:41)
[2024-07-02] MEDS: NS (Normal Saline) 0.9% 1,000 ML IV ONE (09:41)
[2024-07-02] MEDS: [UNRECOGNIZED DRUG - OTHER] SC ONE (09:42)
[2024-07-02] MEDS: SODIUM CHLORIDE 0.9% INJ 10 ML SYR IV PRN (10:46)
[2024-07-06 09:30] VITALS: BP 137/72; O2SAT 97
[2024-07-06 10:18] LABS: CALCIUM LEVEL 8.5 MG/DL (8.3-10.6); CARBON DIOXIDE LEVEL 32 MMOL/L (20-31); CHLORIDE LEVEL 104 MMOL/L (98-107); CREATININE FOR GFR 0.85 MG/DL (0.55-1.30); GLOMERULAR FILTRATION RATE > 60.0 (>39); MAGNESIUM LEVEL 1.4 MG/DL (1.8-2.4); POTASSIUM SERUM 3.2 MMOL/L (3.5-5.1); SODIUM LEVEL 140 MMOL/L (136-145)
[2024-07-06] MEDS: KCL 10MEQ/100ML SWI (KRUN) 100 ML IV ONE (10:30)
[2024-07-06] MEDS: MAG SULF 1GM/100ML (MAG RUN) 100 ML IV SCH (10:30)
[2024-07-06] MEDS: SODIUM CHLORIDE 0.9% INJ 10 ML SYR IV PRN (12:33)
[2024-07-09 09:35] VITALS: BP 117/68; O2SAT 98
[2024-07-09 10:40] LABS: CALCIUM LEVEL 8.7 MG/DL (8.3-10.6); CARBON DIOXIDE LEVEL 31 MMOL/L (20-31); CHLORIDE LEVEL 100 MMOL/L (98-107); CREATININE FOR GFR 0.85 MG/DL (0.55-1.30); GLOMERULAR FILTRATION RATE > 60.0 (>39); MAGNESIUM LEVEL 1.5 MG/DL (1.8-2.4); POTASSIUM SERUM 2.8 MMOL/L (3.5-5.1); SODIUM LEVEL 139 MMOL/L (136-145)
[2024-07-09] MEDS: MAG SULF 1GM/100ML (MAG RUN) 100 ML IV SCH (11:09)
[2024-07-09] MEDS: KCL 10MEQ/100ML SWI (KRUN) 100 ML IV SCH (11:10)
[2024-07-09] MEDS: SODIUM CHLORIDE 0.9% INJ 10 ML SYR IV PRN (13:18)
[2024-07-14 08:02] LABS: BASO # 0.1 10^3/uL (0.0-0.2); BASO % 0.6 % (0.0-1.0); EOS # 0.1 10^3/uL (0.0-0.5); EOS % 1.2 % (0.0-3.0); LYMPH # 0.7 10^3/uL (1.5-5.0); LYMPH % 7.4 % (24.0-44.0); MONO # 0.5 10^3/uL (0.0-0.8); MONO % 4.9 % (2.0-8.0); NEUTROPHILS # 8.2 10^3/uL (1.5-8.5); NEUTROPHILS % 84.2 % (36.0-66.0); PLATELET COUNT, AUTOMATED 197 10^3/uL (150-450)
[2024-07-14 08:06] VITALS: BP 131/74; O2SAT 90
[2024-07-14 08:41] LABS: ALT/SGPT 18.0 U/L (7.0-40); AST/SGOT 10.0 U/L (<34); CALCIUM LEVEL 8.8 MG/DL (8.3-10.6); CARBON DIOXIDE LEVEL 31.0 MMOL/L (20-31); CHLORIDE LEVEL 101.0 MMOL/L (98-107); CREATININE FOR GFR 1.01 MG/DL (0.55-1.30); GLOMERULAR FILTRATION RATE 56.9 (>39); POTASSIUM SERUM 2.6 MMOL/L (3.5-5.1); SODIUM LEVEL 139.0 MMOL/L (136-145)
[2024-07-14] MEDS: KCL 10MEQ/100ML SWI (KRUN) 100 ML IV ONE (09:35)
[2024-07-14] MEDS: MAG SULF 1GM/100ML (MAG RUN) 100 ML IV ONE ×2 (09:35→11:55)
[2024-07-14] MEDS: PALONOSETRON 0.25 MG/5 ML VIAL IV SCH (10:41)
[2024-07-14] MEDS: FOSAPREPITANT 150 MG in NS 245 ML IV SCH (10:42)
[2024-07-14] MEDS: dexAMETHasone 4 MG/ML 1 ML VIAL IV SCH (10:42)
[2024-07-14] MEDS: D5W IV SCH ×2 (11:17→11:20)
[2024-07-14] MEDS: LEUCOVORIN CALCIUM IV SCH (11:17)
[2024-07-14] MEDS: IRINOTECAN HYDROCHLORIDE IV SCH (11:20)
[2024-07-14] MEDS: FLUOROURACIL IV SCH (13:07)
[2024-07-14] MEDS: NS IV SCH (13:07)
[2024-07-16 10:38] VITALS: BP 136/68; O2SAT 98
[2024-07-16] MEDS: SODIUM CHLORIDE 0.9% INJ 10 ML SYR IV PRN (10:40)
[2024-07-16 10:50] LABS: BASO # 0.0 10^3/uL (0.0-0.2); BASO % 0.2 % (0.0-1.0); EOS # 0.0 10^3/uL (0.0-0.5); EOS % 0.2 % (0.0-3.0); LYMPH # 0.9 10^3/uL (1.5-5.0); LYMPH % 7.1 % (24.0-44.0); MONO # 0.4 10^3/uL (0.0-0.8); MONO % 3.1 % (2.0-8.0); NEUTROPHILS # 11.6 10^3/uL (1.5-8.5); NEUTROPHILS % 88.3 % (36.0-66.0); PLATELET COUNT, AUTOMATED 198 10^3/uL (150-450)
[2024-07-16 11:27] LABS: ALT/SGPT 17.0 U/L (7.0-40); AST/SGOT 14.0 U/L (<34); CALCIUM LEVEL 9.0 MG/DL (8.3-10.6); CARBON DIOXIDE LEVEL 33.0 MMOL/L (20-31); CHLORIDE LEVEL 98.0 MMOL/L (98-107); CREATININE FOR GFR 1.0 MG/DL (0.55-1.30); GLOMERULAR FILTRATION RATE 57.5 (>39); POTASSIUM SERUM 3.1 MMOL/L (3.5-5.1); SODIUM LEVEL 138.0 MMOL/L (136-145)
[2024-07-16 11:29] LABS: MAGNESIUM LEVEL 1.6 MG/DL (1.8-2.4)
[2024-07-16 11:36] LABS: VITAMIN B12 LEVEL > 2000 PG/ML (211-911)
[2024-07-17 09:30] VITALS: BP 125/69; O2SAT 99
[2024-07-17] MEDS: KCL 10MEQ/100ML SWI (KRUN) 100 ML IV SCH (09:51)
[2024-07-17] MEDS: MAG SULF 1GM/100ML (MAG RUN) 100 ML IV ONE (09:51)
[2024-07-17] MEDS: SODIUM CHLORIDE 0.9% INJ 10 ML SYR IV PRN (10:47)
[2024-07-17] MEDS: [UNRECOGNIZED DRUG - OTHER] SC ONE (10:47)
[2024-07-20 08:00] VITALS: BP 116/70; O2SAT 96
[2024-07-20 08:45] LABS: CALCIUM LEVEL 9.1 MG/DL (8.3-10.6); CARBON DIOXIDE LEVEL 30.0 MMOL/L (20-31); CHLORIDE LEVEL 102.0 MMOL/L (98-107); CREATININE FOR GFR 0.99 MG/DL (0.55-1.30); GLOMERULAR FILTRATION RATE 58.2 (>39); POTASSIUM SERUM 3.2 MMOL/L (3.5-5.1); SODIUM LEVEL 140.0 MMOL/L (136-145)
[2024-07-20] MEDS: KCL 10MEQ/100ML SWI (KRUN) 100 ML IV ONE (09:51)
[2024-07-20] MEDS: MAG SULF 1GM/100ML (MAG RUN) 100 ML IV ONE (09:52)
[2024-07-20] MEDS: SODIUM CHLORIDE 0.9% INJ 10 ML SYR IV PRN (10:57)
[2024-07-23 08:00] VITALS: BP 116/71; O2SAT 97
[2024-07-23 08:52] LABS: CALCIUM LEVEL 8.5 MG/DL (8.3-10.6); CARBON DIOXIDE LEVEL 28.0 MMOL/L (20-31); CHLORIDE LEVEL 102.0 MMOL/L (98-107); CREATININE FOR GFR 1.09 MG/DL (0.55-1.30); GLOMERULAR FILTRATION RATE 52.1 (>39); MAGNESIUM LEVEL 1.3 MG/DL (1.8-2.4); POTASSIUM SERUM 2.9 MMOL/L (3.5-5.1); SODIUM LEVEL 138.0 MMOL/L (136-145)
[2024-07-23] MEDS: KCL 10MEQ/100ML SWI (KRUN) 100 ML IV SCH (09:23)
[2024-07-23] MEDS: MAG SULF 1GM/100ML (MAG RUN) 100 ML IV SCH (09:24)
[2024-07-23] MEDS: NS (Normal Saline) 0.9% 1,000 ML IV ONE (11:24)
[2024-07-23] MEDS: KCL 10MEQ/100ML SWI (KRUN) 100 ML IV ONE (11:25)
[2024-07-23] MEDS: SODIUM CHLORIDE 0.9% INJ 10 ML SYR IV PRN (12:32)
[2024-07-27 10:05] VITALS: BP 132/73; O2SAT 97
[2024-07-27 10:40] LABS: BASO # 0.1 10^3/uL (0.0-0.2); BASO % 0.6 % (0.0-1.0); EOS # 0.1 10^3/uL (0.0-0.5); EOS % 1.1 % (0.0-3.0); LYMPH # 1.0 10^3/uL (1.5-5.0); LYMPH % 7.9 % (24.0-44.0); MONO # 0.6 10^3/uL (0.0-0.8); MONO % 5.1 % (2.0-8.0); NEUTROPHILS # 10.3 10^3/uL (1.5-8.5); NEUTROPHILS % 83.3 % (36.0-66.0); PLATELET COUNT, AUTOMATED 158 10^3/uL (150-450)
[2024-07-27 11:16] LABS: MAGNESIUM LEVEL 1.5 MG/DL (1.8-2.4)
[2024-07-27 11:17] LABS: ALT/SGPT 13 U/L (7.0-40); AST/SGOT < 8 U/L (<34); CALCIUM LEVEL 9.0 MG/DL (8.3-10.6); CARBON DIOXIDE LEVEL 30 MMOL/L (20-31); CHLORIDE LEVEL 106 MMOL/L (98-107); CREATININE FOR GFR 0.93 MG/DL (0.55-1.30); GLOMERULAR FILTRATION RATE > 60.0 (>39); POTASSIUM SERUM 3.1 MMOL/L (3.5-5.1); SODIUM LEVEL 142 MMOL/L (136-145)
[2024-07-27 11:37] LABS: CA19-9 TUMOR MARKER,CARBOHYDRA 233.8 U/ML (<35.0)
[2024-07-27] MEDS: KCL 10MEQ/100ML SWI (KRUN) 100 ML IV SCH (11:46)
[2024-07-27] MEDS: MAG SULF 1GM/100ML (MAG RUN) 100 ML IV SCH (11:47)
[2024-07-27] MEDS: FOSAPREPITANT 150 MG in NS 245 ML IV SCH (13:56)
[2024-07-27] MEDS: dexAMETHasone 4 MG/ML 1 ML VIAL IV SCH (13:58)
[2024-07-27] MEDS: PALONOSETRON 0.25 MG/5 ML VIAL IV SCH (13:58)
[2024-07-27] MEDS: LEUCOVORIN CALCIUM IV SCH (14:23)
[2024-07-27] MEDS: IRINOTECAN HYDROCHLORIDE IV SCH (14:23)
[2024-07-27] MEDS: D5W IV SCH ×2 (14:23)
[2024-07-27] MEDS: FLUOROURACIL IV SCH (15:55)
[2024-07-27] MEDS: NS IV SCH (15:55)
[2024-07-28 10:13] LABS: VITAMIN B12 LEVEL > 2000 PG/ML (211-911)
[2024-07-29] MEDS: SODIUM CHLORIDE 0.9% INJ 10 ML SYR IV PRN (14:36)
[2024-07-29 14:53] LABS: BASO # 0.1 10^3/uL (0.0-0.2); BASO % 0.3 % (0.0-1.0); EOS # 0.1 10^3/uL (0.0-0.5); EOS % 0.3 % (0.0-3.0); LYMPH # 1.0 10^3/uL (1.5-5.0); LYMPH % 6.5 % (24.0-44.0); MONO # 0.5 10^3/uL (0.0-0.8); MONO % 3.5 % (2.0-8.0); NEUTROPHILS # 13.1 10^3/uL (1.5-8.5); NEUTROPHILS % 88.2 % (36.0-66.0); PLATELET COUNT, AUTOMATED 154 10^3/uL (150-450)
[2024-07-29 15:18] LABS: MAGNESIUM LEVEL 1.9 MG/DL (1.8-2.4)
[2024-07-29 15:21] LABS: ALT/SGPT 17.0 U/L (7.0-40); AST/SGOT 9.0 U/L (<34); CALCIUM LEVEL 8.5 MG/DL (8.3-10.6); CARBON DIOXIDE LEVEL 30.0 MMOL/L (20-31); CHLORIDE LEVEL 101.0 MMOL/L (98-107); CREATININE FOR GFR 1.06 MG/DL (0.55-1.30); GLOMERULAR FILTRATION RATE 53.8 (>39); POTASSIUM SERUM 3.4 MMOL/L (3.5-5.1); SODIUM LEVEL 138.0 MMOL/L (136-145)
[2024-07-29 15:22] VITALS: BP 98/60; O2SAT 97
[2024-07-29 15:37] LABS: CA19-9 TUMOR MARKER,CARBOHYDRA 272.0 U/ML (<35.0)
[2024-07-30 08:00] VITALS: BP 120/64; O2SAT 99
[2024-07-30] MEDS: NS (Normal Saline) 0.9% 1,000 ML IV ONE (08:32)
[2024-07-30] MEDS: KCL 10MEQ/100ML SWI (KRUN) 100 ML IV ONE (08:33)
[2024-07-30] MEDS: [UNRECOGNIZED DRUG - OTHER] SC ONE (08:33)
[2024-07-30] MEDS: SODIUM CHLORIDE 0.9% INJ 10 ML SYR IV PRN (10:38)
[2024-08-03 08:00] VITALS: BP 109/67; O2SAT 96
[2024-08-03 09:00] LABS: CALCIUM LEVEL 8.4 MG/DL (8.3-10.6); CARBON DIOXIDE LEVEL 30 MMOL/L (20-31); CHLORIDE LEVEL 100 MMOL/L (98-107); CREATININE FOR GFR 0.93 MG/DL (0.55-1.30); GLOMERULAR FILTRATION RATE > 60.0 (>39); MAGNESIUM LEVEL 1.3 MG/DL (1.8-2.4); POTASSIUM SERUM 3.0 MMOL/L (3.5-5.1); SODIUM LEVEL 137 MMOL/L (136-145)
[2024-08-03] MEDS: MAG SULF 1GM/100ML (MAG RUN) 100 ML IV SCH (09:45)
[2024-08-03] MEDS: KCL 10MEQ/100ML SWI (KRUN) 100 ML IV SCH (09:45)
[2024-08-03] MEDS: NS 500 ML IV ONE (09:46)
[2024-08-03] MEDS: SODIUM CHLORIDE 0.9% INJ 10 ML SYR IV PRN (12:03)
[2024-08-06 09:20] LABS: CALCIUM LEVEL 8.7 MG/DL (8.3-10.6); CARBON DIOXIDE LEVEL 31 MMOL/L (20-31); CHLORIDE LEVEL 102 MMOL/L (98-107); CREATININE FOR GFR 0.95 MG/DL (0.55-1.30); GLOMERULAR FILTRATION RATE > 60.0 (>39); MAGNESIUM LEVEL 1.4 MG/DL (1.8-2.4); POTASSIUM SERUM 2.8 MMOL/L (3.5-5.1); SODIUM LEVEL 139 MMOL/L (136-145)
[2024-08-06] MEDS: MAG SULF 1GM/100ML (MAG RUN) 100 ML IV SCH (09:44)
[2024-08-06] MEDS: KCL 10MEQ/100ML SWI (KRUN) 100 ML IV SCH (09:45)
[2024-08-06 11:51] VITALS: BP 107/64; O2SAT 97
[2024-08-06] MEDS: SODIUM CHLORIDE 0.9% INJ 10 ML SYR IV PRN (11:51)
[2024-08-10 08:21] VITALS: BP 132/72; O2SAT 98
[2024-08-10 08:24] LABS: BASO # 0.1 10^3/uL (0.0-0.2); BASO % 0.9 % (0.0-1.0); EOS # 0.2 10^3/uL (0.0-0.5); EOS % 1.8 % (0.0-3.0); LYMPH # 0.9 10^3/uL (1.5-5.0); LYMPH % 7.8 % (24.0-44.0); MONO # 0.6 10^3/uL (0.0-0.8); MONO % 5.8 % (2.0-8.0); NEUTROPHILS # 9.1 10^3/uL (1.5-8.5); NEUTROPHILS % 81.6 % (36.0-66.0); PLATELET COUNT, AUTOMATED 155 10^3/uL (150-450)
[2024-08-10 08:58] LABS: ALT/SGPT 12.0 U/L (7.0-40); AST/SGOT 9.0 U/L (<34); CALCIUM LEVEL 9.2 MG/DL (8.3-10.6); CARBON DIOXIDE LEVEL 28.0 MMOL/L (20-31); CHLORIDE LEVEL 105.0 MMOL/L (98-107); CREATININE FOR GFR 0.99 MG/DL (0.55-1.30); GLOMERULAR FILTRATION RATE 58.2 (>39); POTASSIUM SERUM 2.6 MMOL/L (3.5-5.1); SODIUM LEVEL 142.0 MMOL/L (136-145)
[2024-08-10] MEDS: KCL 10MEQ/100ML SWI (KRUN) 100 ML IV SCH (09:23)
[2024-08-10] MEDS: MAG SULF 1GM/100ML (MAG RUN) 100 ML IV SCH (09:23)
[2024-08-10] MEDS: PALONOSETRON 0.25 MG/5 ML VIAL IV SCH (11:28)
[2024-08-10] MEDS: dexAMETHasone 4 MG/ML 1 ML VIAL IV SCH (11:31)
[2024-08-10] MEDS: FOSAPREPITANT 150 MG, VIAL 2 BAG 13MM ADAPTER 1 EACH in NS 250 ML IV SCH (11:31)
[2024-08-10] MEDS: LEUCOVORIN CALCIUM IV SCH (12:07)
[2024-08-10] MEDS: D5W IV SCH ×2 (12:07→12:08)
[2024-08-10] MEDS: IRINOTECAN HYDROCHLORIDE IV SCH (12:08)
[2024-08-10] MEDS: FLUOROURACIL IV SCH (14:16)
[2024-08-10] MEDS: NS IV SCH (14:16)
[2024-08-12 12:05] VITALS: BP 99/65; O2SAT 99
[2024-08-12] MEDS: SODIUM CHLORIDE 0.9% INJ 10 ML SYR IV PRN (12:05)
[2024-08-12 13:02] LABS: CALCIUM LEVEL 8.5 MG/DL (8.3-10.6); CARBON DIOXIDE LEVEL 29.0 MMOL/L (20-31); CHLORIDE LEVEL 104.0 MMOL/L (98-107); CREATININE FOR GFR 1.09 MG/DL (0.55-1.30); GLOMERULAR FILTRATION RATE 52.1 (>39); MAGNESIUM LEVEL 1.9 MG/DL (1.8-2.4); POTASSIUM SERUM 2.9 MMOL/L (3.5-5.1); SODIUM LEVEL 139.0 MMOL/L (136-145)
[2024-08-13 08:00] VITALS: BP 104/64; O2SAT 98
[2024-08-13] MEDS: [UNRECOGNIZED DRUG - OTHER] SC ONE (08:23)
[2024-08-13] MEDS: KCL 10MEQ/100ML SWI (KRUN) 100 ML IV SCH (08:23)
[2024-08-13] MEDS: SODIUM CHLORIDE 0.9% INJ 10 ML SYR IV PRN (11:36)
[2024-08-17 08:20] VITALS: BP 108/61; O2SAT 99
[2024-08-17 09:08] LABS: CALCIUM LEVEL 9.2 MG/DL (8.3-10.6); CARBON DIOXIDE LEVEL 29 MMOL/L (20-31); CHLORIDE LEVEL 101 MMOL/L (98-107); CREATININE FOR GFR 0.88 MG/DL (0.55-1.30); GLOMERULAR FILTRATION RATE > 60.0 (>39); MAGNESIUM LEVEL 1.3 MG/DL (1.8-2.4); POTASSIUM SERUM 2.8 MMOL/L (3.5-5.1); SODIUM LEVEL 139 MMOL/L (136-145)
[2024-08-17] MEDS: MAG SULF 1GM/100ML (MAG RUN) 100 ML IV SCH (09:30)
[2024-08-17] MEDS: KCL 10MEQ/100ML SWI (KRUN) 100 ML IV SCH (09:30)
[2024-08-20 08:00] VITALS: BP 105/69; O2SAT 98
[2024-08-20 08:59] LABS: CALCIUM LEVEL 9.0 MG/DL (8.3-10.6); CARBON DIOXIDE LEVEL 30 MMOL/L (20-31); CHLORIDE LEVEL 105 MMOL/L (98-107); CREATININE FOR GFR 0.89 MG/DL (0.55-1.30); GLOMERULAR FILTRATION RATE > 60.0 (>39); MAGNESIUM LEVEL 1.4 MG/DL (1.8-2.4); POTASSIUM SERUM 2.7 MMOL/L (3.5-5.1); SODIUM LEVEL 144 MMOL/L (136-145)
[2024-08-20] MEDS: KCL 10MEQ/100ML SWI (KRUN) 10 MEQ in IV 1 EA IV SCH (10:00)
[2024-08-20] MEDS: MAG SULF 1GM/100ML (MAG RUN) 1 GM in IV 1 EA IV ONE (12:00)
[2024-08-20] MEDS: SODIUM CHLORIDE 0.9% INJ 10 ML SYR IV PRN (14:18)
[2024-08-24 08:06] LABS: BASO # 0.1 10^3/uL (0.0-0.2); BASO % 0.8 % (0.0-1.0); EOS # 0.2 10^3/uL (0.0-0.5); EOS % 1.6 % (0.0-3.0); LYMPH # 1.0 10^3/uL (1.5-5.0); LYMPH % 8.1 % (24.0-44.0); MONO # 0.7 10^3/uL (0.0-0.8); MONO % 5.5 % (2.0-8.0); NEUTROPHILS # 9.7 10^3/uL (1.5-8.5); NEUTROPHILS % 82.0 % (36.0-66.0); PLATELET COUNT, AUTOMATED 146 10^3/uL (150-450)
[2024-08-24 08:15] VITALS: BP 127/85; O2SAT 95
[2024-08-24 08:43] LABS: ALT/SGPT 10 U/L (7.0-40); AST/SGOT 8 U/L (<34); CALCIUM LEVEL 8.9 MG/DL (8.3-10.6); CARBON DIOXIDE LEVEL 28 MMOL/L (20-31); CHLORIDE LEVEL 106 MMOL/L (98-107); CREATININE FOR GFR 0.94 MG/DL (0.55-1.30); GLOMERULAR FILTRATION RATE > 60.0 (>39); POTASSIUM SERUM 2.6 MMOL/L (3.5-5.1); SODIUM LEVEL 143 MMOL/L (136-145)
[2024-08-24] MEDS: MAG SULF 1GM/100ML (MAG RUN) 100 ML IV SCH (09:22)
[2024-08-24] MEDS: KCL 10MEQ/100ML SWI (KRUN) 100 ML IV SCH (09:23)
[2024-08-24] MEDS: PALONOSETRON 0.25 MG/5 ML VIAL IV SCH (12:22)
[2024-08-24] MEDS: NS IV SCH ×2 (12:22→14:34)
[2024-08-24] MEDS: dexAMETHasone 4 MG/ML 1 ML VIAL IV SCH (12:22)
[2024-08-24] MEDS: FOSAPREPITANT IV SCH (12:22)
[2024-08-24] MEDS: D5W IV SCH ×2 (12:52→12:53)
[2024-08-24] MEDS: LEUCOVORIN CALCIUM IV SCH (12:52)
[2024-08-24] MEDS: IRINOTECAN HYDROCHLORIDE IV SCH (12:53)
[2024-08-24] MEDS: FLUOROURACIL IV SCH (14:34)
[2024-08-26 12:03] VITALS: BP 119/69; O2SAT 97
[2024-08-26] MEDS: SODIUM CHLORIDE 0.9% INJ 10 ML SYR IV PRN (12:09)
[2024-08-26 13:00] LABS: CALCIUM LEVEL 8.9 MG/DL (8.3-10.6); CARBON DIOXIDE LEVEL 31 MMOL/L (20-31); CHLORIDE LEVEL 106 MMOL/L (98-107); CREATININE FOR GFR 0.91 MG/DL (0.55-1.30); GLOMERULAR FILTRATION RATE > 60.0 (>39); POTASSIUM SERUM 3.5 MMOL/L (3.5-5.1); SODIUM LEVEL 143 MMOL/L (136-145)
[2024-08-27 08:00] VITALS: BP 120/60; O2SAT 98
[2024-08-27] MEDS: NS 500 ML IV ONE (08:15)
[2024-08-27] MEDS: [UNRECOGNIZED DRUG - OTHER] SC ONE (08:17)
[2024-08-27] MEDS: SODIUM CHLORIDE 0.9% INJ 10 ML SYR IV PRN (09:31)
[2024-08-31 08:00] VITALS: BP 111/66; O2SAT 97
[2024-08-31 08:54] LABS: CALCIUM LEVEL 9.4 MG/DL (8.3-10.6); CARBON DIOXIDE LEVEL 30 MMOL/L (20-31); CHLORIDE LEVEL 106 MMOL/L (98-107); CREATININE FOR GFR 0.87 MG/DL (0.55-1.30); GLOMERULAR FILTRATION RATE > 60.0 (>39); MAGNESIUM LEVEL 1.3 MG/DL (1.8-2.4); POTASSIUM SERUM 3.5 MMOL/L (3.5-5.1); SODIUM LEVEL 143 MMOL/L (136-145)
[2024-08-31] MEDS: MAG SULF 1GM/100ML (MAG RUN) 100 ML IV SCH (09:43)
[2024-08-31] MEDS: KCL 10MEQ/100ML SWI (KRUN) 100 ML IV ONE (10:35)
[2024-08-31] MEDS: SODIUM CHLORIDE 0.9% INJ 10 ML SYR IV PRN (12:33)
[2024-09-03 08:00] VITALS: BP 115/63; O2SAT 96
[2024-09-03 08:53] LABS: ALT/SGPT 11 U/L (7.0-40); AST/SGOT < 8 U/L (<34); CALCIUM LEVEL 9.1 MG/DL (8.3-10.6); CARBON DIOXIDE LEVEL 29 MMOL/L (20-31); CHLORIDE LEVEL 107 MMOL/L (98-107); CREATININE FOR GFR 0.96 MG/DL (0.55-1.30); GLOMERULAR FILTRATION RATE > 60.0 (>39); MAGNESIUM LEVEL 1.5 MG/DL (1.8-2.4); POTASSIUM SERUM 3.2 MMOL/L (3.5-5.1); SODIUM LEVEL 143 MMOL/L (136-145)
[2024-09-03] MEDS: MAG SULF 1GM/100ML (MAG RUN) 100 ML IV SCH (09:17)
[2024-09-03] MEDS: KCL 10MEQ/100ML SWI (KRUN) 100 ML IV SCH (10:30)
[2024-09-03] MEDS: SODIUM CHLORIDE 0.9% INJ 10 ML SYR IV PRN (12:32)
[2024-09-07 08:00] VITALS: BP 124/77; O2SAT 96
[2024-09-07 08:02] LABS: BASO # 0.1 10^3/uL (0.0-0.2); BASO % 0.7 % (0.0-1.0); EOS # 0.2 10^3/uL (0.0-0.5); EOS % 1.2 % (0.0-3.0); LYMPH # 1.1 10^3/uL (1.5-5.0); LYMPH % 8.6 % (24.0-44.0); MONO # 0.7 10^3/uL (0.0-0.8); MONO % 5.8 % (2.0-8.0); NEUTROPHILS # 9.9 10^3/uL (1.5-8.5); NEUTROPHILS % 81.4 % (36.0-66.0); PLATELET COUNT, AUTOMATED 155 10^3/uL (150-450)
[2024-09-07 08:33] LABS: ALT/SGPT 12 U/L (7.0-40); AST/SGOT 10 U/L (<34); CALCIUM LEVEL 8.8 MG/DL (8.3-10.6); CARBON DIOXIDE LEVEL 26 MMOL/L (20-31); CHLORIDE LEVEL 110 MMOL/L (98-107); CREATININE FOR GFR 0.94 MG/DL (0.55-1.30); GLOMERULAR FILTRATION RATE > 60.0 (>39); MAGNESIUM LEVEL 1.4 MG/DL (1.8-2.4); POTASSIUM SERUM 3.1 MMOL/L (3.5-5.1); SODIUM LEVEL 144 MMOL/L (136-145)
[2024-09-07] MEDS: MAG SULF 1GM/100ML (MAG RUN) 100 ML IV SCH (09:09)
[2024-09-07] MEDS: KCL 10MEQ/100ML SWI (KRUN) 100 ML IV SCH (09:59)
[2024-09-07] MEDS: SODIUM CHLORIDE 0.9% INJ 10 ML SYR IV PRN (12:00)
[2024-09-10 07:50] VITALS: BP 102/64; O2SAT 98
[2024-09-10 08:39] LABS: CALCIUM LEVEL 8.9 MG/DL (8.3-10.6); CARBON DIOXIDE LEVEL 27 MMOL/L (20-31); CHLORIDE LEVEL 108 MMOL/L (98-107); CREATININE FOR GFR 0.88 MG/DL (0.55-1.30); GLOMERULAR FILTRATION RATE > 60.0 (>39); MAGNESIUM LEVEL 1.4 MG/DL (1.8-2.4); POTASSIUM SERUM 3.2 MMOL/L (3.5-5.1); SODIUM LEVEL 142 MMOL/L (136-145)
[2024-09-10] MEDS: KCL 10MEQ/100ML SWI (KRUN) 100 ML IV SCH (09:20)
[2024-09-10] MEDS: MAG SULF 1GM/100ML (MAG RUN) 100 ML IV SCH (09:21)
[2024-09-10] MEDS: SODIUM CHLORIDE 0.9% INJ 10 ML SYR IV PRN (11:25)
[2024-09-14 08:16] LABS: BASO # 0.1 10^3/uL (0.0-0.2); BASO % 0.8 % (0.0-1.0); EOS # 0.2 10^3/uL (0.0-0.5); EOS % 2.9 % (0.0-3.0); LYMPH # 0.7 10^3/uL (1.5-5.0); LYMPH % 11.8 % (24.0-44.0); MONO # 0.6 10^3/uL (0.0-0.8); MONO % 10.0 % (2.0-8.0); NEUTROPHILS # 4.4 10^3/uL (1.5-8.5); NEUTROPHILS % 74.0 % (36.0-66.0); PLATELET COUNT, AUTOMATED 144 10^3/uL (150-450)
[2024-09-14 08:42] VITALS: BP 134/62; O2SAT 98
[2024-09-14 08:46] LABS: ALT/SGPT 10 U/L (7.0-40); AST/SGOT 10 U/L (<34); CALCIUM LEVEL 9.1 MG/DL (8.3-10.6); CARBON DIOXIDE LEVEL 27 MMOL/L (20-31); CHLORIDE LEVEL 105 MMOL/L (98-107); CREATININE FOR GFR 0.82 MG/DL (0.55-1.30); GLOMERULAR FILTRATION RATE > 60.0 (>39); MAGNESIUM LEVEL 1.6 MG/DL (1.8-2.4); POTASSIUM SERUM 3.6 MMOL/L (3.5-5.1); SODIUM LEVEL 143 MMOL/L (136-145)
[2024-09-14 09:07] LABS: CA19-9 TUMOR MARKER,CARBOHYDRA 319.8 U/ML (<35.0)
[2024-09-14] MEDS: KCL 10MEQ/100ML SWI (KRUN) 100 ML IV ONE (09:30)
[2024-09-14] MEDS: MAG SULF 1GM/100ML (MAG RUN) 100 ML IV SCH (09:30)
[2024-09-14] MEDS: dexAMETHasone 4 MG/ML 1 ML VIAL IV SCH (10:43)
[2024-09-14] MEDS: FOSAPREPITANT 150 MG, VIAL 2 BAG 13MM ADAPTER 1 EACH in NS 250 ML IV SCH (10:43)
[2024-09-14] MEDS: PALONOSETRON 0.25 MG/5 ML VIAL IV SCH (10:44)
[2024-09-14] MEDS: D5W IV SCH ×2 (12:02→12:04)
[2024-09-14] MEDS: LEUCOVORIN CALCIUM IV SCH (12:02)
[2024-09-14] MEDS: IRINOTECAN HYDROCHLORIDE IV SCH (12:04)
[2024-09-14] MEDS: FLUOROURACIL IV SCH (13:48)
[2024-09-14] MEDS: NS IV SCH (13:48)
[2024-09-16] MEDS: SODIUM CHLORIDE 0.9% INJ 10 ML SYR IV PRN (11:34)
[2024-09-16 11:35] VITALS: BP 127/67; O2SAT 98
[2024-09-16 12:30] LABS: ALT/SGPT 12.0 U/L (7.0-40); AST/SGOT 11.0 U/L (<34); CALCIUM LEVEL 9.2 MG/DL (8.3-10.6); CARBON DIOXIDE LEVEL 32.0 MMOL/L (20-31); CHLORIDE LEVEL 101.0 MMOL/L (98-107); CREATININE FOR GFR 1.04 MG/DL (0.55-1.30); GLOMERULAR FILTRATION RATE 55.0 (>39); POTASSIUM SERUM 3.6 MMOL/L (3.5-5.1); SODIUM LEVEL 141.0 MMOL/L (136-145)
[2024-09-17] MEDS: KCL 10MEQ/100ML SWI (KRUN) 100 ML IV ONE (08:03)
[2024-09-17] MEDS: MAG SULF 1GM/100ML (MAG RUN) 100 ML IV ONE (08:03)
[2024-09-17 08:04] VITALS: BP 97/59; O2SAT 97
[2024-09-17] MEDS: PEGFILGRASTIM-JMDB 6 MG/0.6 ML SYRINGE SC ONE (08:55)
[2024-09-17] MEDS: SODIUM CHLORIDE 0.9% INJ 10 ML SYR IV PRN (08:56)
[2024-09-21 08:00] VITALS: BP 123/71; O2SAT 96
[2024-09-21 09:05] LABS: CALCIUM LEVEL 8.9 MG/DL (8.3-10.6); CARBON DIOXIDE LEVEL 30 MMOL/L (20-31); CHLORIDE LEVEL 104 MMOL/L (98-107); CREATININE FOR GFR 0.93 MG/DL (0.55-1.30); GLOMERULAR FILTRATION RATE > 60.0 (>39); MAGNESIUM LEVEL 1.5 MG/DL (1.8-2.4); POTASSIUM SERUM 3.5 MMOL/L (3.5-5.1); SODIUM LEVEL 140 MMOL/L (136-145)
[2024-09-21] MEDS: MAG SULF 1GM/100ML (MAG RUN) 1 GM in IV 1 EA IV ONE (09:32)
[2024-09-21] MEDS: SODIUM CHLORIDE 0.9% INJ 10 ML SYR IV PRN (10:32)
[2024-09-24 08:00] VITALS: BP 127/65; O2SAT 97
[2024-09-24 08:47] LABS: CALCIUM LEVEL 9.2 MG/DL (8.3-10.6); CARBON DIOXIDE LEVEL 29 MMOL/L (20-31); CHLORIDE LEVEL 103 MMOL/L (98-107); CREATININE FOR GFR 0.90 MG/DL (0.55-1.30); GLOMERULAR FILTRATION RATE > 60.0 (>39); MAGNESIUM LEVEL 1.4 MG/DL (1.8-2.4); POTASSIUM SERUM 3.5 MMOL/L (3.5-5.1); SODIUM LEVEL 140 MMOL/L (136-145)
[2024-09-24] MEDS: MAG SULF 1GM/100ML (MAG RUN) 100 ML IV SCH (09:20)
[2024-09-24] MEDS: SODIUM CHLORIDE 0.9% INJ 10 ML SYR IV PRN (11:14)
[2024-09-28 08:28] LABS: BASO # 0.1 10^3/uL (0.0-0.2); BASO % 0.5 % (0.0-1.0); EOS # 0.2 10^3/uL (0.0-0.5); EOS % 1.9 % (0.0-3.0); LYMPH # 0.9 10^3/uL (1.5-5.0); LYMPH % 9.6 % (24.0-44.0); MONO # 0.5 10^3/uL (0.0-0.8); MONO % 5.6 % (2.0-8.0); NEUTROPHILS # 7.6 10^3/uL (1.5-8.5); NEUTROPHILS % 81.3 % (36.0-66.0); PLATELET COUNT, AUTOMATED 149 10^3/uL (150-450)
[2024-09-28 08:43] VITALS: BP 134/71; O2SAT 92
[2024-09-28 08:56] LABS: ALT/SGPT 14 U/L (7.0-40); AST/SGOT 10 U/L (<34); CALCIUM LEVEL 9.1 MG/DL (8.3-10.6); CARBON DIOXIDE LEVEL 28 MMOL/L (20-31); CHLORIDE LEVEL 107 MMOL/L (98-107); CREATININE FOR GFR 0.93 MG/DL (0.55-1.30); GLOMERULAR FILTRATION RATE > 60.0 (>39); MAGNESIUM LEVEL 1.5 MG/DL (1.8-2.4); POTASSIUM SERUM 3.5 MMOL/L (3.5-5.1); SODIUM LEVEL 142 MMOL/L (136-145)
[2024-09-28] MEDS: KCL 10MEQ/100ML SWI (KRUN) 100 ML IV ONE (09:26)
[2024-09-28] MEDS: MAG SULF 1GM/100ML (MAG RUN) 100 ML IV SCH (09:27)
[2024-09-28] MEDS: FOSAPREPITANT 150 MG, VIAL 2 BAG 13MM ADAPTER 1 EACH in NS 250 ML IV SCH (10:52)
[2024-09-28] MEDS: PALONOSETRON 0.25 MG/5 ML VIAL IV SCH (10:52)
[2024-09-28] MEDS: dexAMETHasone 4 MG/ML 1 ML VIAL IV SCH (10:52)
[2024-09-28] MEDS: LEUCOVORIN CALCIUM IV SCH (11:31)
[2024-09-28] MEDS: D5W IV SCH ×2 (11:31→11:33)
[2024-09-28] MEDS: IRINOTECAN HYDROCHLORIDE IV SCH (11:33)
[2024-09-28] MEDS: NS IV SCH (13:08)
[2024-09-28] MEDS: FLUOROURACIL IV SCH (13:08)
[2024-09-30 10:40] VITALS: BP 123/70; O2SAT 98
[2024-09-30] MEDS: SODIUM CHLORIDE 0.9% INJ 10 ML SYR IV PRN (10:43)
[2024-09-30 11:50] LABS: CALCIUM LEVEL 9.0 MG/DL (8.3-10.6); CARBON DIOXIDE LEVEL 31.0 MMOL/L (20-31); CHLORIDE LEVEL 100.0 MMOL/L (98-107); CREATININE FOR GFR 1.09 MG/DL (0.55-1.30); GLOMERULAR FILTRATION RATE 52.1 (>39); MAGNESIUM LEVEL 1.7 MG/DL (1.8-2.4); POTASSIUM SERUM 3.7 MMOL/L (3.5-5.1); SODIUM LEVEL 140.0 MMOL/L (136-145)
[2024-10-01 07:57] VITALS: BP 142/76; O2SAT 94
[2024-10-01] MEDS: MAG SULF 1GM/100ML (MAG RUN) 100 ML IV ONE (08:23)
[2024-10-01] MEDS: PEGFILGRASTIM-JMDB 6 MG/0.6 ML SYRINGE SC ONE (09:26)
[2024-10-01] MEDS: SODIUM CHLORIDE 0.9% INJ 10 ML SYR IV PRN (09:26)
[2024-10-05 08:24] VITALS: BP 129/79; O2SAT 100
[2024-10-05 08:49] LABS: CALCIUM LEVEL 8.8 MG/DL (8.3-10.6); CARBON DIOXIDE LEVEL 28.0 MMOL/L (20-31); CHLORIDE LEVEL 101.0 MMOL/L (98-107); CREATININE FOR GFR 1.1 MG/DL (0.55-1.30); GLOMERULAR FILTRATION RATE 51.5 (>39); MAGNESIUM LEVEL 1.5 MG/DL (1.8-2.4); POTASSIUM SERUM 3.3 MMOL/L (3.5-5.1); SODIUM LEVEL 138.0 MMOL/L (136-145)
[2024-10-05] MEDS: MAG SULF 1GM/100ML (MAG RUN) 100 ML IV SCH (09:24)
[2024-10-05] MEDS: KCL 10MEQ/100ML SWI (KRUN) 100 ML IV SCH (09:39)
[2024-10-05] MEDS: SODIUM CHLORIDE 0.9% INJ 10 ML SYR IV PRN (11:48)
[2024-10-12 08:10] VITALS: BP 127/70; O2SAT 96
[2024-10-12 08:12] LABS: BASO # 0.1 10^3/uL (0.0-0.2); BASO % 0.7 % (0.0-1.0); EOS # 0.2 10^3/uL (0.0-0.5); EOS % 1.3 % (0.0-3.0); LYMPH # 1.0 10^3/uL (1.5-5.0); LYMPH % 8.1 % (24.0-44.0); MONO # 0.6 10^3/uL (0.0-0.8); MONO % 5.0 % (2.0-8.0); NEUTROPHILS # 10.3 10^3/uL (1.5-8.5); NEUTROPHILS % 82.6 % (36.0-66.0); PLATELET COUNT, AUTOMATED 137 10^3/uL (150-450)
[2024-10-12 08:50] LABS: ALT/SGPT 10 U/L (7.0-40); AST/SGOT 10 U/L (<34); CALCIUM LEVEL 8.5 MG/DL (8.3-10.6); CARBON DIOXIDE LEVEL 27 MMOL/L (20-31); CHLORIDE LEVEL 109 MMOL/L (98-107); CREATININE FOR GFR 0.92 MG/DL (0.55-1.30); GLOMERULAR FILTRATION RATE > 60.0 (>39); POTASSIUM SERUM 3.1 MMOL/L (3.5-5.1); SODIUM LEVEL 145 MMOL/L (136-145)
[2024-10-12 09:11] LABS: CA19-9 TUMOR MARKER,CARBOHYDRA 317.0 U/ML (<35.0)
[2024-10-12] MEDS: KCL 10MEQ/100ML SWI (KRUN) 100 ML IV SCH (09:16)
[2024-10-12] MEDS: MAG SULF 1GM/100ML (MAG RUN) 100 ML IV SCH (09:16)
[2024-10-12] MEDS: dexAMETHasone 4 MG/ML 1 ML VIAL IV SCH (11:12)
[2024-10-12] MEDS: PALONOSETRON 0.25 MG/5 ML VIAL IV SCH (11:12)
[2024-10-12] MEDS: FOSAPREPITANT 150 MG, VIAL 2 BAG 13MM ADAPTER 1 EACH in NS 250 ML IV SCH (11:13)
[2024-10-12] MEDS: IRINOTECAN HYDROCHLORIDE IV SCH (11:44)
[2024-10-12] MEDS: D5W IV SCH ×2 (11:44→11:45)
[2024-10-12] MEDS: LEUCOVORIN CALCIUM IV SCH (11:45)
[2024-10-12] MEDS: FLUOROURACIL IV SCH (13:27)
[2024-10-12] MEDS: NS IV SCH (13:27)
[2024-10-14 11:06] VITALS: BP 132/71; O2SAT 95
[2024-10-14 11:52] LABS: CALCIUM LEVEL 9.0 MG/DL (8.3-10.6); CARBON DIOXIDE LEVEL 30 MMOL/L (20-31); CHLORIDE LEVEL 107 MMOL/L (98-107); CREATININE FOR GFR 0.90 MG/DL (0.55-1.30); GLOMERULAR FILTRATION RATE > 60.0 (>39); MAGNESIUM LEVEL 1.7 MG/DL (1.8-2.4); POTASSIUM SERUM 3.6 MMOL/L (3.5-5.1); SODIUM LEVEL 143 MMOL/L (136-145)
[2024-10-15 08:10] VITALS: BP 114/66; O2SAT 99
[2024-10-15] MEDS: KCL 10MEQ/100ML SWI (KRUN) 100 ML IV ONE (08:25)
[2024-10-15] MEDS: MAG SULF 1GM/100ML (MAG RUN) 100 ML IV ONE (08:25)
[2024-10-15] MEDS: NS 500 ML IV ONE (08:26)
[2024-10-15] MEDS: PEGFILGRASTIM-JMDB 6 MG/0.6 ML SYRINGE SC ONE (09:32)
[2024-10-15] MEDS: SODIUM CHLORIDE 0.9% INJ 10 ML SYR IV PRN (09:33)
[2024-10-19 08:10] VITALS: BP 111/67; O2SAT 97
[2024-10-19 08:39] LABS: CALCIUM LEVEL 8.8 MG/DL (8.3-10.6); CARBON DIOXIDE LEVEL 29 MMOL/L (20-31); CHLORIDE LEVEL 104 MMOL/L (98-107); CREATININE FOR GFR 0.92 MG/DL (0.55-1.30); GLOMERULAR FILTRATION RATE > 60.0 (>39); MAGNESIUM LEVEL 1.4 MG/DL (1.8-2.4); POTASSIUM SERUM 3.4 MMOL/L (3.5-5.1); SODIUM LEVEL 141 MMOL/L (136-145)
[2024-10-19] MEDS: MAG SULF 1GM/100ML (MAG RUN) 100 ML IV SCH (09:19)
[2024-10-19] MEDS: KCL 10MEQ/100ML SWI (KRUN) 100 ML IV SCH (09:20)
[2024-10-19] MEDS: SODIUM CHLORIDE 0.9% INJ 10 ML SYR IV PRN (11:25)
[2024-10-22 08:00] VITALS: BP 122/66; O2SAT 96
[2024-10-22 08:59] LABS: CALCIUM LEVEL 9.5 MG/DL (8.3-10.6); CARBON DIOXIDE LEVEL 30 MMOL/L (20-31); CHLORIDE LEVEL 103 MMOL/L (98-107); CREATININE FOR GFR 0.96 MG/DL (0.55-1.30); GLOMERULAR FILTRATION RATE > 60.0 (>39); MAGNESIUM LEVEL 1.5 MG/DL (1.8-2.4); POTASSIUM SERUM 3.4 MMOL/L (3.5-5.1); SODIUM LEVEL 143 MMOL/L (136-145)
[2024-10-22] MEDS: KCL 10MEQ/100ML SWI (KRUN) 100 ML IV SCH (09:11)
[2024-10-22] MEDS: MAG SULF 1GM/100ML (MAG RUN) 100 ML IV SCH (09:14)
[2024-10-22] MEDS: SODIUM CHLORIDE 0.9% INJ 10 ML SYR IV PRN (11:14)
[2024-10-26 08:16] LABS: BASO # 0.1 10^3/uL (0.0-0.2); BASO % 0.7 % (0.0-1.0); EOS # 0.1 10^3/uL (0.0-0.5); EOS % 1.0 % (0.0-3.0); LYMPH # 0.8 10^3/uL (1.5-5.0); LYMPH % 5.8 % (24.0-44.0); MONO # 0.7 10^3/uL (0.0-0.8); MONO % 5.3 % (2.0-8.0); NEUTROPHILS # 11.7 10^3/uL (1.5-8.5); NEUTROPHILS % 84.7 % (36.0-66.0); PLATELET COUNT, AUTOMATED 119 10^3/uL (150-450)
[2024-10-26 08:47] LABS: ALT/SGPT 14.0 U/L (7.0-40); AST/SGOT 13.0 U/L (<34); CALCIUM LEVEL 9.1 MG/DL (8.3-10.6); CARBON DIOXIDE LEVEL 30.0 MMOL/L (20-31); CHLORIDE LEVEL 104.0 MMOL/L (98-107); CREATININE FOR GFR 1.01 MG/DL (0.55-1.30); GLOMERULAR FILTRATION RATE 56.9 (>39); POTASSIUM SERUM 3.3 MMOL/L (3.5-5.1); SODIUM LEVEL 143.0 MMOL/L (136-145)
[2024-10-26 09:03] VITALS: BP 140/78; O2SAT 79
[2024-10-26] MEDS: KCL 10MEQ/100ML SWI (KRUN) 100 ML IV ONE (09:59)
[2024-10-26] MEDS: MAG SULF 1GM/100ML (MAG RUN) 100 ML IV SCH (10:02)
[2024-10-26] MEDS: FOSAPREPITANT 150 MG, VIAL 2 BAG 13MM ADAPTER 1 EACH in NS 250 ML IV SCH (12:02)
[2024-10-26] MEDS: PALONOSETRON 0.25 MG/5 ML VIAL IV SCH (12:02)
[2024-10-26] MEDS: dexAMETHasone 4 MG/ML 1 ML VIAL IV SCH (12:03)
[2024-10-26] MEDS: LEUCOVORIN CALCIUM IV SCH (12:30)
[2024-10-26] MEDS: D5W IV SCH ×2 (12:30→12:32)
[2024-10-26] MEDS: IRINOTECAN HYDROCHLORIDE IV SCH (12:32)
[2024-10-26] MEDS: NS IV SCH (14:23)
[2024-10-26] MEDS: FLUOROURACIL IV SCH (14:23)
[2024-10-28 12:27] VITALS: BP 134/76; O2SAT 98
[2024-10-28] MEDS: SODIUM CHLORIDE 0.9% INJ 10 ML SYR IV PRN (12:32)
[2024-10-28 13:25] LABS: CALCIUM LEVEL 9.1 MG/DL (8.3-10.6); CARBON DIOXIDE LEVEL 31.0 MMOL/L (20-31); CHLORIDE LEVEL 103.0 MMOL/L (98-107); CREATININE FOR GFR 1.08 MG/DL (0.55-1.30); GLOMERULAR FILTRATION RATE 52.7 (>39); POTASSIUM SERUM 3.8 MMOL/L (3.5-5.1); SODIUM LEVEL 144.0 MMOL/L (136-145)
[2024-10-29 08:07] VITALS: BP 125/69; O2SAT 97
[2024-10-29] MEDS: [UNRECOGNIZED DRUG - OTHER] SC ONE (08:23)
[2024-11-02 08:00] VITALS: BP 132/80; O2SAT 97
[2024-11-02 08:51] LABS: CALCIUM LEVEL 8.8 MG/DL (8.3-10.6); CARBON DIOXIDE LEVEL 27 MMOL/L (20-31); CHLORIDE LEVEL 104 MMOL/L (98-107); CREATININE FOR GFR 0.91 MG/DL (0.55-1.30); GLOMERULAR FILTRATION RATE > 60.0 (>39); MAGNESIUM LEVEL 1.6 MG/DL (1.8-2.4); POTASSIUM SERUM 3.4 MMOL/L (3.5-5.1); SODIUM LEVEL 142 MMOL/L (136-145)
[2024-11-02] MEDS: KCL 10MEQ/100ML SWI (KRUN) 100 ML IV ONE (09:02)
[2024-11-02] MEDS: MAG SULF 1GM/100ML (MAG RUN) 100 ML IV ONE (09:02)
[2024-11-02] MEDS: SODIUM CHLORIDE 0.9% INJ 10 ML SYR IV PRN (10:02)
[2024-11-05 08:00] VITALS: BP 148/79; O2SAT 96
[2024-11-05 08:15] LABS: BASO # 0.1 10^3/uL (0.0-0.2); BASO % 0.8 % (0.0-1.0); EOS # 0.2 10^3/uL (0.0-0.5); EOS % 1.5 % (0.0-3.0); LYMPH # 0.9 10^3/uL (1.5-5.0); LYMPH % 6.2 % (24.0-44.0); MONO # 1.1 10^3/uL (0.0-0.8); MONO % 7.5 % (2.0-8.0); NEUTROPHILS # 11.8 10^3/uL (1.5-8.5); NEUTROPHILS % 82.1 % (36.0-66.0); PLATELET COUNT, AUTOMATED 161 10^3/uL (150-450)
[2024-11-05 08:47] LABS: ALT/SGPT 18.0 U/L (7.0-40); AST/SGOT 12.0 U/L (<34); CALCIUM LEVEL 8.9 MG/DL (8.3-10.6); CARBON DIOXIDE LEVEL 27.0 MMOL/L (20-31); CHLORIDE LEVEL 109.0 MMOL/L (98-107); CREATININE FOR GFR 1.0 MG/DL (0.55-1.30); GLOMERULAR FILTRATION RATE 57.5 (>39); MAGNESIUM LEVEL 1.4 MG/DL (1.8-2.4); POTASSIUM SERUM 3.2 MMOL/L (3.5-5.1); SODIUM LEVEL 144.0 MMOL/L (136-145)
[2024-11-05] MEDS: MAG SULF 1GM/100ML (MAG RUN) 100 ML IV ONE (09:13)
[2024-11-05] MEDS: KCL 10MEQ/100ML SWI (KRUN) 100 ML IV ONE (09:14)
[2024-11-05] MEDS: SODIUM CHLORIDE 0.9% INJ 10 ML SYR IV PRN (10:16)
[2024-11-10 08:32] LABS: BASO # 0.1 10^3/uL (0.0-0.2); BASO % 0.9 % (0.0-1.0); EOS # 0.2 10^3/uL (0.0-0.5); EOS % 1.6 % (0.0-3.0); LYMPH # 1.0 10^3/uL (1.5-5.0); LYMPH % 8.6 % (24.0-44.0); MONO # 0.6 10^3/uL (0.0-0.8); MONO % 5.0 % (2.0-8.0); NEUTROPHILS # 9.5 10^3/uL (1.5-8.5); NEUTROPHILS % 82.3 % (36.0-66.0); PLATELET COUNT, AUTOMATED 129 10^3/uL (150-450)
[2024-11-10 09:08] LABS: ALT/SGPT 16 U/L (7.0-40); AST/SGOT 14 U/L (<34); CALCIUM LEVEL 8.8 MG/DL (8.3-10.6); CARBON DIOXIDE LEVEL 25 MMOL/L (20-31); CHLORIDE LEVEL 107 MMOL/L (98-107); CREATININE FOR GFR 0.93 MG/DL (0.55-1.30); GLOMERULAR FILTRATION RATE > 60.0 (>39); MAGNESIUM LEVEL 1.4 MG/DL (1.8-2.4); POTASSIUM SERUM 3.6 MMOL/L (3.5-5.1); SODIUM LEVEL 143 MMOL/L (136-145)
[2024-11-10 09:19] VITALS: BP 138/74; O2SAT 92
[2024-11-10] MEDS: PALONOSETRON 0.25 MG/5 ML VIAL IV SCH (10:50)
[2024-11-10] MEDS: FOSAPREPITANT 150 MG, VIAL 2 BAG 13MM ADAPTER 1 EACH in NS 250 ML IV SCH (10:50)
[2024-11-10] MEDS: dexAMETHasone 4 MG/ML 1 ML VIAL IV SCH (10:50)
[2024-11-10] MEDS: MAG SULF 1GM/100ML (MAG RUN) 100 ML IV ONE (10:52)
[2024-11-10] MEDS: D5W IV SCH ×2 (12:09→12:14)
[2024-11-10] MEDS: LEUCOVORIN CALCIUM IV SCH (12:09)
[2024-11-10] MEDS: IRINOTECAN HYDROCHLORIDE IV SCH (12:14)
[2024-11-10] MEDS: NS IV SCH (13:50)
[2024-11-10] MEDS: FLUOROURACIL IV SCH (13:50)
[2024-11-12 11:35] VITALS: BP 126/65; O2SAT 95
[2024-11-12 12:31] LABS: CALCIUM LEVEL 9.2 MG/DL (8.3-10.6); CARBON DIOXIDE LEVEL 28.0 MMOL/L (20-31); CHLORIDE LEVEL 102.0 MMOL/L (98-107); CREATININE FOR GFR 0.98 MG/DL (0.55-1.30); GLOMERULAR FILTRATION RATE 58.9 (>39); MAGNESIUM LEVEL 1.8 MG/DL (1.8-2.4); POTASSIUM SERUM 3.7 MMOL/L (3.5-5.1); SODIUM LEVEL 142.0 MMOL/L (136-145)
[2024-11-13 08:02] VITALS: BP 139/72; O2SAT 98
[2024-11-13] MEDS: [UNRECOGNIZED DRUG - OTHER] SC ONE (08:12)
[2024-11-16 08:01] VITALS: BP 124/72; O2SAT 96
[2024-11-16 08:24] LABS: BASO # 0.0 10^3/uL (0.0-0.2); BASO % 0.1 % (0.0-1.0); EOS # 0.1 10^3/uL (0.0-0.5); EOS % 0.3 % (0.0-3.0); LYMPH # 0.6 10^3/uL (1.5-5.0); LYMPH % 2.6 % (24.0-44.0); MONO # 0.7 10^3/uL (0.0-0.8); MONO % 2.6 % (2.0-8.0); NEUTROPHILS # 23.4 10^3/uL (1.5-8.5); NEUTROPHILS % 93.2 % (36.0-66.0); PLATELET COUNT, AUTOMATED 106 10^3/uL (150-450)
[2024-11-16 08:57] LABS: ALT/SGPT 12.0 U/L (7.0-40); AST/SGOT 9.0 U/L (<34); CALCIUM LEVEL 9.0 MG/DL (8.3-10.6); CARBON DIOXIDE LEVEL 30.0 MMOL/L (20-31); CHLORIDE LEVEL 102.0 MMOL/L (98-107); CREATININE FOR GFR 0.97 MG/DL (0.55-1.30); GLOMERULAR FILTRATION RATE 59.6 (>39); MAGNESIUM LEVEL 1.4 MG/DL (1.8-2.4); POTASSIUM SERUM 3.7 MMOL/L (3.5-5.1); SODIUM LEVEL 141.0 MMOL/L (136-145)
[2024-11-16] MEDS: MAG SULF 1GM/100ML (MAG RUN) 100 ML IV SCH (09:38)
[2024-11-16] MEDS: SODIUM CHLORIDE 0.9% INJ 10 ML SYR IV PRN (11:50)
[2024-11-19 07:51] VITALS: BP 146/74; O2SAT 93
[2024-11-19 08:05] LABS: BASO # 0.1 10^3/uL (0.0-0.2); BASO % 0.3 % (0.0-1.0); EOS # 0.3 10^3/uL (0.0-0.5); EOS % 2.1 % (0.0-3.0); LYMPH # 0.8 10^3/uL (1.5-5.0); LYMPH % 5.1 % (24.0-44.0); MONO # 1.0 10^3/uL (0.0-0.8); MONO % 6.1 % (2.0-8.0); NEUTROPHILS # 13.4 10^3/uL (1.5-8.5); NEUTROPHILS % 84.6 % (36.0-66.0); PLATELET COUNT, AUTOMATED 174 10^3/uL (150-450)
[2024-11-19 08:31] LABS: ALT/SGPT 20 U/L (7.0-40); AST/SGOT 15 U/L (<34); CALCIUM LEVEL 9.2 MG/DL (8.3-10.6); CARBON DIOXIDE LEVEL 29 MMOL/L (20-31); CHLORIDE LEVEL 105 MMOL/L (98-107); CREATININE FOR GFR 0.89 MG/DL (0.55-1.30); GLOMERULAR FILTRATION RATE > 60.0 (>39); MAGNESIUM LEVEL 1.5 MG/DL (1.8-2.4); POTASSIUM SERUM 3.3 MMOL/L (3.5-5.1); SODIUM LEVEL 141 MMOL/L (136-145)
[2024-11-19] MEDS: MAG SULF 1GM/100ML (MAG RUN) 100 ML IV SCH (09:10)
[2024-11-19] MEDS: KCL 10MEQ/100ML SWI (KRUN) 100 ML IV SCH (09:11)
[2024-11-19] MEDS: SODIUM CHLORIDE 0.9% INJ 10 ML SYR IV PRN (11:19)
[2024-11-23 08:54] LABS: BASO # 0.1 10^3/uL (0.0-0.2); BASO % 0.8 % (0.0-1.0); EOS # 0.2 10^3/uL (0.0-0.5); EOS % 1.6 % (0.0-3.0); LYMPH # 0.9 10^3/uL (1.5-5.0); LYMPH % 7.0 % (24.0-44.0); MONO # 0.7 10^3/uL (0.0-0.8); MONO % 5.3 % (2.0-8.0); NEUTROPHILS # 10.9 10^3/uL (1.5-8.5); NEUTROPHILS % 82.9 % (36.0-66.0); PLATELET COUNT, AUTOMATED 169 10^3/uL (150-450)
[2024-11-23 09:20] LABS: ALT/SGPT 15 U/L (7.0-40); AST/SGOT 12 U/L (<34); CALCIUM LEVEL 8.5 MG/DL (8.3-10.6); CARBON DIOXIDE LEVEL 28 MMOL/L (20-31); CHLORIDE LEVEL 107 MMOL/L (98-107); CREATININE FOR GFR 0.94 MG/DL (0.55-1.30); GLOMERULAR FILTRATION RATE > 60.0 (>39); MAGNESIUM LEVEL 1.4 MG/DL (1.8-2.4); POTASSIUM SERUM 3.5 MMOL/L (3.5-5.1); SODIUM LEVEL 145 MMOL/L (136-145)
[2024-11-23 09:22] VITALS: BP 142/84; O2SAT 98
[2024-11-23 10:03] LABS: CA19-9 TUMOR MARKER,CARBOHYDRA 489.0 U/ML (<35.0)
[2024-11-23] MEDS: MAG SULF 1GM/100ML (MAG RUN) 100 ML IV SCH (10:23)
[2024-11-23] MEDS: SODIUM CHLORIDE 0.9% INJ 10 ML SYR IV PRN (12:16)
[2024-11-30 08:00] VITALS: BP 144/74; O2SAT 100
[2024-11-30 08:36] LABS: CALCIUM LEVEL 8.5 MG/DL (8.3-10.6); CARBON DIOXIDE LEVEL 30 MMOL/L (20-31); CHLORIDE LEVEL 105 MMOL/L (98-107); CREATININE FOR GFR 0.94 MG/DL (0.55-1.30); GLOMERULAR FILTRATION RATE > 60.0 (>39); MAGNESIUM LEVEL 1.4 MG/DL (1.8-2.4); POTASSIUM SERUM 3.3 MMOL/L (3.5-5.1); SODIUM LEVEL 143 MMOL/L (136-145)
[2024-11-30] MEDS: KCL 10MEQ/100ML SWI (KRUN) 100 ML IV SCH (08:57)
[2024-11-30] MEDS: MAG SULF 1GM/100ML (MAG RUN) 100 ML IV SCH (08:58)
[2024-11-30] MEDS: SODIUM CHLORIDE 0.9% INJ 10 ML SYR IV PRN (10:53)
[2024-12-03 08:00] VITALS: BP 116/64; O2SAT 98
[2024-12-03 08:40] LABS: CALCIUM LEVEL 8.8 MG/DL (8.3-10.6); CARBON DIOXIDE LEVEL 29 MMOL/L (20-31); CHLORIDE LEVEL 110 MMOL/L (98-107); CREATININE FOR GFR 0.88 MG/DL (0.55-1.30); GLOMERULAR FILTRATION RATE > 60.0 (>39); MAGNESIUM LEVEL 1.6 MG/DL (1.8-2.4); POTASSIUM SERUM 3.7 MMOL/L (3.5-5.1); SODIUM LEVEL 146 MMOL/L (136-145)
[2024-12-03] MEDS: MAG SULF 1GM/100ML (MAG RUN) 100 ML IV SCH (08:50)
[2024-12-03] MEDS: SODIUM CHLORIDE 0.9% INJ 10 ML SYR IV PRN (10:46)
[2024-12-07 09:07] LABS: BASO # 0.1 10^3/uL (0.0-0.2); BASO % 1.3 % (0.0-1.0); EOS # 0.1 10^3/uL (0.0-0.5); EOS % 2.4 % (0.0-3.0); LYMPH # 0.6 10^3/uL (1.5-5.0); LYMPH % 13.2 % (24.0-44.0); MONO # 0.5 10^3/uL (0.0-0.8); MONO % 11.0 % (2.0-8.0); NEUTROPHILS # 3.3 10^3/uL (1.5-8.5); NEUTROPHILS % 71.7 % (36.0-66.0); PLATELET COUNT, AUTOMATED 129 10^3/uL (150-450)
[2024-12-07 09:24] VITALS: BP 146/82; O2SAT 95
[2024-12-07 09:29] LABS: ALT/SGPT 11 U/L (7.0-40); AST/SGOT 10 U/L (<34); CALCIUM LEVEL 8.7 MG/DL (8.3-10.6); CARBON DIOXIDE LEVEL 29 MMOL/L (20-31); CHLORIDE LEVEL 102 MMOL/L (98-107); CREATININE FOR GFR 0.90 MG/DL (0.55-1.30); GLOMERULAR FILTRATION RATE > 60.0 (>39); POTASSIUM SERUM 3.9 MMOL/L (3.5-5.1); SODIUM LEVEL 142 MMOL/L (136-145)
[2024-12-07 09:40] LABS: MAGNESIUM LEVEL 1.5 MG/DL (1.8-2.4)
[2024-12-07 10:02] LABS: CA19-9 TUMOR MARKER,CARBOHYDRA 565.8 U/ML (<35.0)
[2024-12-07] MEDS: MAG SULF 1GM/100ML (MAG RUN) 100 ML IV ONE (10:37)
[2024-12-07] MEDS: dexAMETHasone 4 MG/ML 1 ML VIAL IV SCH (11:41)
[2024-12-07] MEDS: FOSAPREPITANT 150 MG in NS 250 ML IV SCH (11:41)
[2024-12-07] MEDS: PALONOSETRON 0.25 MG/5 ML VIAL IV SCH (11:42)
[2024-12-07] MEDS: LEUCOVORIN CALCIUM IV SCH (12:05)
[2024-12-07] MEDS: D5W IV SCH ×2 (12:05→12:06)
[2024-12-07] MEDS: IRINOTECAN HYDROCHLORIDE IV SCH (12:06)
[2024-12-07] MEDS: FLUOROURACIL IV SCH (13:38)
[2024-12-07] MEDS: NS IV SCH (13:38)
[2024-12-09] MEDS: SODIUM CHLORIDE 0.9% INJ 10 ML SYR IV PRN (11:19)
[2024-12-09 11:35] LABS: BASO # 0.0 10^3/uL (0.0-0.2); BASO % 0.1 % (0.0-1.0); EOS # 0.0 10^3/uL (0.0-0.5); EOS % 0.2 % (0.0-3.0); LYMPH # 0.7 10^3/uL (1.5-5.0); LYMPH % 8.2 % (24.0-44.0); MONO # 0.6 10^3/uL (0.0-0.8); MONO % 7.2 % (2.0-8.0); NEUTROPHILS # 7.3 10^3/uL (1.5-8.5); NEUTROPHILS % 84.0 % (36.0-66.0); PLATELET COUNT, AUTOMATED 134 10^3/uL (150-450)
[2024-12-09 11:40] VITALS: BP 116/68; O2SAT 96
[2024-12-09 12:14] LABS: ALT/SGPT 18.0 U/L (7.0-40); AST/SGOT 20.0 U/L (<34); CALCIUM LEVEL 8.5 MG/DL (8.3-10.6); CARBON DIOXIDE LEVEL 29.0 MMOL/L (20-31); CHLORIDE LEVEL 104.0 MMOL/L (98-107); CREATININE FOR GFR 0.97 MG/DL (0.55-1.30); GLOMERULAR FILTRATION RATE 59.6 (>39); MAGNESIUM LEVEL 1.8 MG/DL (1.8-2.4); POTASSIUM SERUM 3.8 MMOL/L (3.5-5.1); SODIUM LEVEL 143.0 MMOL/L (136-145)
[2024-12-10] MEDS: [UNRECOGNIZED DRUG - OTHER] SC ONE (08:08)
[2024-12-14 08:07] VITALS: BP 139/67; O2SAT 94
[2024-12-14 08:19] LABS: BASO # 0.2 10^3/uL (0.0-0.2); BASO % 0.9 % (0.0-1.0); EOS # 0.2 10^3/uL (0.0-0.5); EOS % 1.0 % (0.0-3.0); LYMPH # 0.9 10^3/uL (1.5-5.0); LYMPH % 4.6 % (24.0-44.0); MONO # 1.1 10^3/uL (0.0-0.8); MONO % 5.7 % (2.0-8.0); NEUTROPHILS # 17.4 10^3/uL (1.5-8.5); NEUTROPHILS % 86.7 % (36.0-66.0); PLATELET COUNT, AUTOMATED 126 10^3/uL (150-450)
[2024-12-14 08:54] LABS: ALT/SGPT 14.0 U/L (7.0-40); AST/SGOT 12.0 U/L (<34); CALCIUM LEVEL 8.3 MG/DL (8.3-10.6); CARBON DIOXIDE LEVEL 29.0 MMOL/L (20-31); CHLORIDE LEVEL 103.0 MMOL/L (98-107); CREATININE FOR GFR 0.97 MG/DL (0.55-1.30); GLOMERULAR FILTRATION RATE 59.6 (>39); MAGNESIUM LEVEL 1.3 MG/DL (1.8-2.4); POTASSIUM SERUM 3.4 MMOL/L (3.5-5.1); SODIUM LEVEL 143.0 MMOL/L (136-145)
[2024-12-14] MEDS: KCL 10MEQ/100ML SWI (KRUN) 100 ML IV SCH (09:13)
[2024-12-14] MEDS: MAG SULF 1GM/100ML (MAG RUN) 100 ML IV SCH (09:14)
[2024-12-14] MEDS: SODIUM CHLORIDE 0.9% INJ 10 ML SYR IV PRN (11:19)
[2024-12-17 08:00] VITALS: BP 109/63; O2SAT 100
[2024-12-17 08:14] LABS: BASO # 0.1 10^3/uL (0.0-0.2); BASO % 0.6 % (0.0-1.0); EOS # 0.2 10^3/uL (0.0-0.5); EOS % 1.4 % (0.0-3.0); LYMPH # 1.0 10^3/uL (1.5-5.0); LYMPH % 5.9 % (24.0-44.0); MONO # 1.2 10^3/uL (0.0-0.8); MONO % 6.9 % (2.0-8.0); NEUTROPHILS # 14.3 10^3/uL (1.5-8.5); NEUTROPHILS % 83.6 % (36.0-66.0); PLATELET COUNT, AUTOMATED 146 10^3/uL (150-450)
[2024-12-17 08:46] LABS: ALT/SGPT 16 U/L (7.0-40); AST/SGOT 12 U/L (<34); CALCIUM LEVEL 8.4 MG/DL (8.3-10.6); CARBON DIOXIDE LEVEL 29 MMOL/L (20-31); CHLORIDE LEVEL 105 MMOL/L (98-107); CREATININE FOR GFR 0.92 MG/DL (0.55-1.30); GLOMERULAR FILTRATION RATE > 60.0 (>39); POTASSIUM SERUM 3.4 MMOL/L (3.5-5.1); SODIUM LEVEL 145 MMOL/L (136-145)
[2024-12-17] MEDS: MAG SULF 1GM/100ML (MAG RUN) 100 ML IV SCH (09:26)
[2024-12-17] MEDS: KCL 10MEQ/100ML SWI (KRUN) 100 ML IV SCH (09:28)
[2024-12-17] MEDS: SODIUM CHLORIDE 0.9% INJ 10 ML SYR IV PRN (11:35)
[2024-12-21 09:41] VITALS: BP 132/74; O2SAT 95
[2024-12-21 09:43] LABS: BASO # 0.1 10^3/uL (0.0-0.2); BASO % 0.5 % (0.0-1.0); EOS # 0.1 10^3/uL (0.0-0.5); EOS % 1.0 % (0.0-3.0); LYMPH # 0.7 10^3/uL (1.5-5.0); LYMPH % 5.7 % (24.0-44.0); MONO # 0.4 10^3/uL (0.0-0.8); MONO % 3.9 % (2.0-8.0); NEUTROPHILS # 10.0 10^3/uL (1.5-8.5); NEUTROPHILS % 88.0 % (36.0-66.0)
[2024-12-21 09:50] LABS: PLATELET COUNT, AUTOMATED 98 10^3/uL (150-450)
[2024-12-21 10:37] LABS: ALT/SGPT 14 U/L (7.0-40); AST/SGOT 11 U/L (<34); CALCIUM LEVEL 8.6 MG/DL (8.3-10.6); CARBON DIOXIDE LEVEL 29 MMOL/L (20-31); CHLORIDE LEVEL 105 MMOL/L (98-107); CREATININE FOR GFR 0.86 MG/DL (0.55-1.30); GLOMERULAR FILTRATION RATE > 60.0 (>39); POTASSIUM SERUM 3.3 MMOL/L (3.5-5.1); SODIUM LEVEL 144 MMOL/L (136-145)
[2024-12-21 11:21] LABS: MAGNESIUM LEVEL 1.4 MG/DL (1.8-2.4)
[2024-12-21] MEDS: MAG SULF 1GM/100ML (MAG RUN) 100 ML IV SCH ×2 (11:51→12:13)
[2024-12-21] MEDS: KCL 10MEQ/100ML SWI (KRUN) 100 ML IV ONE (11:58)
[2024-12-21] MEDS: SODIUM CHLORIDE 0.9% INJ 10 ML SYR IV PRN (13:46)
[2024-12-24 08:06] LABS: BASO # 0.0 10^3/uL (0.0-0.2); BASO % 0.5 % (0.0-1.0); EOS # 0.1 10^3/uL (0.0-0.5); EOS % 1.6 % (0.0-3.0); LYMPH # 0.7 10^3/uL (1.5-5.0); LYMPH % 10.4 % (24.0-44.0); MONO # 0.5 10^3/uL (0.0-0.8); MONO % 7.6 % (2.0-8.0); NEUTROPHILS # 5.0 10^3/uL (1.5-8.5); NEUTROPHILS % 79.6 % (36.0-66.0)
[2024-12-24 08:08] LABS: PLATELET COUNT, AUTOMATED 99 10^3/uL (150-450)
[2024-12-24 08:27] VITALS: BP 131/74; O2SAT 95
[2024-12-24 08:47] LABS: ALT/SGPT 11 U/L (7.0-40); AST/SGOT 9 U/L (<34); CALCIUM LEVEL 8.6 MG/DL (8.3-10.6); CARBON DIOXIDE LEVEL 29 MMOL/L (20-31); CHLORIDE LEVEL 103 MMOL/L (98-107); CREATININE FOR GFR 0.83 MG/DL (0.55-1.30); GLOMERULAR FILTRATION RATE > 60.0 (>39); MAGNESIUM LEVEL 1.4 MG/DL (1.8-2.4); POTASSIUM SERUM 3.1 MMOL/L (3.5-5.1); SODIUM LEVEL 144 MMOL/L (136-145)
[2024-12-24] MEDS: KCL 10MEQ/100ML SWI (KRUN) 100 ML IV SCH (09:25)
[2024-12-24] MEDS: MAG SULF 1GM/100ML (MAG RUN) 100 ML IV SCH (09:25)
[2024-12-24] MEDS: SODIUM CHLORIDE 0.9% INJ 10 ML SYR IV PRN (11:29)
[2024-12-28 08:01] VITALS: BP 129/71; O2SAT 99
[2024-12-28 08:22] LABS: BASO # 0.1 10^3/uL (0.0-0.2); BASO % 1.0 % (0.0-1.0); EOS # 0.1 10^3/uL (0.0-0.5); EOS % 1.5 % (0.0-3.0); LYMPH # 0.6 10^3/uL (1.5-5.0); LYMPH % 11.1 % (24.0-44.0); MONO # 0.5 10^3/uL (0.0-0.8); MONO % 9.0 % (2.0-8.0); NEUTROPHILS # 4.0 10^3/uL (1.5-8.5); NEUTROPHILS % 77.0 % (36.0-66.0); PLATELET COUNT, AUTOMATED 118 10^3/uL (150-450)
[2024-12-28 08:52] LABS: ALT/SGPT 12 U/L (7.0-40); AST/SGOT 11 U/L (<34); CALCIUM LEVEL 8.9 MG/DL (8.3-10.6); CARBON DIOXIDE LEVEL 29 MMOL/L (20-31); CHLORIDE LEVEL 105 MMOL/L (98-107); CREATININE FOR GFR 0.85 MG/DL (0.55-1.30); GLOMERULAR FILTRATION RATE > 60.0 (>39); MAGNESIUM LEVEL 1.5 MG/DL (1.8-2.4); POTASSIUM SERUM 3.3 MMOL/L (3.5-5.1); SODIUM LEVEL 144 MMOL/L (136-145)
[2024-12-28] MEDS: MAG SULF 1GM/100ML (MAG RUN) 100 ML IV SCH (09:24)
[2024-12-28] MEDS: KCL 10MEQ/100ML SWI (KRUN) 100 ML IV SCH (09:24)
[2024-12-28] MEDS: PALONOSETRON 0.25 MG/5 ML VIAL IV SCH (11:29)
[2024-12-28] MEDS: dexAMETHasone 4 MG/ML 1 ML VIAL IV SCH (11:29)
[2024-12-28] MEDS: FOSAPREPITANT 150 MG, VIAL 2 BAG 13MM ADAPTER 1 EACH in NS 250 ML IV SCH (11:29)
[2024-12-28] MEDS: LEUCOVORIN CALCIUM IV SCH (11:52)
[2024-12-28] MEDS: D5W IV SCH ×2 (11:52→11:54)
[2024-12-28] MEDS: IRINOTECAN HYDROCHLORIDE IV SCH (11:54)
[2024-12-28] MEDS: NS IV SCH (13:35)
[2024-12-28] MEDS: FLUOROURACIL IV SCH (13:35)
[2024-12-30 11:25] VITALS: BP 129/67; O2SAT 99
[2024-12-30] MEDS: SODIUM CHLORIDE 0.9% INJ 10 ML SYR IV PRN (11:32)
[2024-12-30 11:40] LABS: BASO # 0.0 10^3/uL (0.0-0.2); BASO % 0.3 % (0.0-1.0); EOS # 0.0 10^3/uL (0.0-0.5); EOS % 0.1 % (0.0-3.0); LYMPH # 0.9 10^3/uL (1.5-5.0); LYMPH % 12.4 % (24.0-44.0); MONO # 0.6 10^3/uL (0.0-0.8); MONO % 7.7 % (2.0-8.0); NEUTROPHILS # 5.7 10^3/uL (1.5-8.5); NEUTROPHILS % 79.1 % (36.0-66.0); PLATELET COUNT, AUTOMATED 126 10^3/uL (150-450)
[2024-12-30 12:25] LABS: ALT/SGPT 14 U/L (7.0-40); AST/SGOT 11 U/L (<34); CALCIUM LEVEL 8.9 MG/DL (8.3-10.6); CARBON DIOXIDE LEVEL 31 MMOL/L (20-31); CHLORIDE LEVEL 104 MMOL/L (98-107); CREATININE FOR GFR 0.96 MG/DL (0.55-1.30); GLOMERULAR FILTRATION RATE > 60.0 (>39); MAGNESIUM LEVEL 2.0 MG/DL (1.8-2.4); POTASSIUM SERUM 3.7 MMOL/L (3.5-5.1); SODIUM LEVEL 143 MMOL/L (136-145)
[2024-12-31] MEDS: [UNRECOGNIZED DRUG - OTHER] SC ONE (07:51)
[2025-01-04 08:15] VITALS: BP 149/75; O2SAT 95
[2025-01-04 08:33] LABS: BASO # 0.1 10^3/uL (0.0-0.2); BASO % 0.4 % (0.0-1.0); EOS # 0.1 10^3/uL (0.0-0.5); EOS % 1.0 % (0.0-3.0); LYMPH # 0.9 10^3/uL (1.5-5.0); LYMPH % 5.8 % (24.0-44.0); MONO # 0.9 10^3/uL (0.0-0.8); MONO % 6.4 % (2.0-8.0); NEUTROPHILS # 12.6 10^3/uL (1.5-8.5); NEUTROPHILS % 85.2 % (36.0-66.0); PLATELET COUNT, AUTOMATED 122 10^3/uL (150-450)
[2025-01-04 09:06] LABS: ALT/SGPT 11 U/L (7.0-40); AST/SGOT 11 U/L (<34); CALCIUM LEVEL 8.8 MG/DL (8.3-10.6); CARBON DIOXIDE LEVEL 31 MMOL/L (20-31); CHLORIDE LEVEL 101 MMOL/L (98-107); CREATININE FOR GFR 0.93 MG/DL (0.55-1.30); GLOMERULAR FILTRATION RATE > 60.0 (>39); MAGNESIUM LEVEL 1.3 MG/DL (1.8-2.4); POTASSIUM SERUM 3.6 MMOL/L (3.5-5.1); SODIUM LEVEL 140 MMOL/L (136-145)
[2025-01-04] MEDS: MAG SULF 1GM/100ML (MAG RUN) 100 ML IV SCH (09:20)
[2025-01-04] MEDS: KCL 10MEQ/100ML SWI (KRUN) 100 ML IV ONE (09:20)
[2025-01-04] MEDS: SODIUM CHLORIDE 0.9% INJ 10 ML SYR IV PRN (11:27)
[2025-01-07 08:00] VITALS: BP 113/61; O2SAT 93
[2025-01-07 08:23] LABS: BASO # 0.1 10^3/uL (0.0-0.2); BASO % 0.7 % (0.0-1.0); EOS # 0.2 10^3/uL (0.0-0.5); EOS % 1.1 % (0.0-3.0); LYMPH # 0.8 10^3/uL (1.5-5.0); LYMPH % 5.2 % (24.0-44.0); MONO # 1.0 10^3/uL (0.0-0.8); MONO % 6.3 % (2.0-8.0); NEUTROPHILS # 12.9 10^3/uL (1.5-8.5); NEUTROPHILS % 85.0 % (36.0-66.0); PLATELET COUNT, AUTOMATED 140 10^3/uL (150-450)
[2025-01-07 09:02] LABS: ALT/SGPT 15.0 U/L (7.0-40); AST/SGOT 11.0 U/L (<34); CALCIUM LEVEL 8.5 MG/DL (8.3-10.6); CARBON DIOXIDE LEVEL 26.0 MMOL/L (20-31); CHLORIDE LEVEL 106.0 MMOL/L (98-107); CREATININE FOR GFR 0.98 MG/DL (0.55-1.30); GLOMERULAR FILTRATION RATE 58.9 (>39); MAGNESIUM LEVEL 1.6 MG/DL (1.8-2.4); POTASSIUM SERUM 3.0 MMOL/L (3.5-5.1); SODIUM LEVEL 143.0 MMOL/L (136-145)
[2025-01-07] MEDS: MAG SULF 1GM/100ML (MAG RUN) 100 ML IV SCH (09:33)
[2025-01-07] MEDS: KCL 10MEQ/100ML SWI (KRUN) 100 ML IV SCH (10:43)
[2025-01-07] MEDS: SODIUM CHLORIDE 0.9% INJ 10 ML SYR IV PRN (12:38)
[2025-01-12 08:19] VITALS: BP 137/69; O2SAT 97
[2025-01-12 08:19] LABS: BASO # 0.1 10^3/uL (0.0-0.2); BASO % 0.6 % (0.0-1.0); EOS # 0.2 10^3/uL (0.0-0.5); EOS % 1.8 % (0.0-3.0); LYMPH # 0.8 10^3/uL (1.5-5.0); LYMPH % 7.5 % (24.0-44.0); MONO # 0.5 10^3/uL (0.0-0.8); MONO % 4.3 % (2.0-8.0); NEUTROPHILS # 9.2 10^3/uL (1.5-8.5); NEUTROPHILS % 84.7 % (36.0-66.0); PLATELET COUNT, AUTOMATED 114 10^3/uL (150-450)
[2025-01-12 08:49] LABS: ALT/SGPT 10 U/L (7.0-40); AST/SGOT 9 U/L (<34); CALCIUM LEVEL 8.4 MG/DL (8.3-10.6); CARBON DIOXIDE LEVEL 27 MMOL/L (20-31); CHLORIDE LEVEL 106 MMOL/L (98-107); CREATININE FOR GFR 0.84 MG/DL (0.55-1.30); GLOMERULAR FILTRATION RATE > 60.0 (>39); POTASSIUM SERUM 3.5 MMOL/L (3.5-5.1); SODIUM LEVEL 144 MMOL/L (136-145)
[2025-01-12] MEDS: FOSAPREPITANT 150 MG, VIAL 2 BAG 13MM ADAPTER 1 EACH in NS 250 ML IV SCH (09:48)
[2025-01-12] MEDS: dexAMETHasone 4 MG/ML 1 ML VIAL IV SCH (09:50)
[2025-01-12] MEDS: PALONOSETRON 0.25 MG/5 ML VIAL IV SCH (09:50)
[2025-01-12 10:32] LABS: MAGNESIUM LEVEL 1.5 MG/DL (1.8-2.4)
[2025-01-12] MEDS: KCL 10MEQ/100ML SWI (KRUN) 100 ML IV ONE (11:19)
[2025-01-12] MEDS: MAG SULF 1GM/100ML (MAG RUN) 100 ML IV SCH (11:19)
[2025-01-12 11:28] LABS: CA19-9 TUMOR MARKER,CARBOHYDRA 681.8 U/ML (<35.0)
[2025-01-12] MEDS: LEUCOVORIN CALCIUM IV SCH (13:19)
[2025-01-12] MEDS: D5W IV SCH ×2 (13:19→13:20)
[2025-01-12] MEDS: IRINOTECAN HYDROCHLORIDE IV SCH (13:20)
[2025-01-12] MEDS: NS IV SCH (14:57)
[2025-01-12] MEDS: FLUOROURACIL IV SCH (14:57)
[2025-01-14 12:25] VITALS: BP 123/78; O2SAT 97
[2025-01-14] MEDS: SODIUM CHLORIDE 0.9% INJ 10 ML SYR IV PRN (12:29)
[2025-01-14 13:16] LABS: CALCIUM LEVEL 8.5 MG/DL (8.3-10.6); CARBON DIOXIDE LEVEL 30 MMOL/L (20-31); CHLORIDE LEVEL 104 MMOL/L (98-107); CREATININE FOR GFR 0.95 MG/DL (0.55-1.30); GLOMERULAR FILTRATION RATE > 60.0 (>39); MAGNESIUM LEVEL 1.8 MG/DL (1.8-2.4); POTASSIUM SERUM 4.0 MMOL/L (3.5-5.1); SODIUM LEVEL 144 MMOL/L (136-145)
[2025-01-15] MEDS: MAG SULF 1GM/100ML (MAG RUN) 100 ML IV ONE (08:11)
[2025-01-15] MEDS: [UNRECOGNIZED DRUG - OTHER] SC ONE (08:11)
[2025-01-15 08:17] VITALS: BP 118/72; O2SAT 97
[2025-01-15] MEDS: SODIUM CHLORIDE 0.9% INJ 10 ML SYR IV PRN (09:23)
[2025-01-18 07:55] VITALS: BP 101/62; O2SAT 95
[2025-01-18 08:47] LABS: CALCIUM LEVEL 8.5 MG/DL (8.3-10.6); CARBON DIOXIDE LEVEL 31 MMOL/L (20-31); CHLORIDE LEVEL 100 MMOL/L (98-107); CREATININE FOR GFR 0.88 MG/DL (0.55-1.30); GLOMERULAR FILTRATION RATE > 60.0 (>39); MAGNESIUM LEVEL 1.6 MG/DL (1.8-2.4); POTASSIUM SERUM 3.5 MMOL/L (3.5-5.1); SODIUM LEVEL 140 MMOL/L (136-145)
[2025-01-18] MEDS: MAG SULF 1GM/100ML (MAG RUN) 100 ML IV ONE (09:06)
[2025-01-18] MEDS: KCL 10MEQ/100ML SWI (KRUN) 100 ML IV ONE (09:40)
[2025-01-18] MEDS: SODIUM CHLORIDE 0.9% INJ 10 ML SYR IV PRN (10:39)
[2025-01-21 07:55] VITALS: BP 122/67; O2SAT 99
[2025-01-21 08:35] LABS: CALCIUM LEVEL 8.4 MG/DL (8.3-10.6); CARBON DIOXIDE LEVEL 29 MMOL/L (20-31); CHLORIDE LEVEL 104 MMOL/L (98-107); CREATININE FOR GFR 0.91 MG/DL (0.55-1.30); GLOMERULAR FILTRATION RATE > 60.0 (>39); MAGNESIUM LEVEL 1.6 MG/DL (1.8-2.4); POTASSIUM SERUM 3.4 MMOL/L (3.5-5.1); SODIUM LEVEL 142 MMOL/L (136-145)
[2025-01-21] MEDS: MAG SULF 1GM/100ML (MAG RUN) 100 ML IV ONE (08:59)
[2025-01-21] MEDS: KCL 10MEQ/100ML SWI (KRUN) 100 ML IV SCH (08:59)
[2025-01-21] MEDS: SODIUM CHLORIDE 0.9% INJ 10 ML SYR IV PRN (11:00)
[2025-01-25 09:00] LABS: BASO # 0.1 10^3/uL (0.0-0.2); BASO % 0.6 % (0.0-1.0); EOS # 0.1 10^3/uL (0.0-0.5); EOS % 0.7 % (0.0-3.0); LYMPH # 0.7 10^3/uL (1.5-5.0); LYMPH % 5.7 % (24.0-44.0); MONO # 0.7 10^3/uL (0.0-0.8); MONO % 5.5 % (2.0-8.0); NEUTROPHILS # 11.2 10^3/uL (1.5-8.5); NEUTROPHILS % 85.9 % (36.0-66.0); PLATELET COUNT, AUTOMATED 123 10^3/uL (150-450)
[2025-01-25 09:35] LABS: ALT/SGPT 14.0 U/L (7.0-40); AST/SGOT 12.0 U/L (<34); CALCIUM LEVEL 8.3 MG/DL (8.3-10.6); CARBON DIOXIDE LEVEL 28.0 MMOL/L (20-31); CHLORIDE LEVEL 104.0 MMOL/L (98-107); CREATININE FOR GFR 1.05 MG/DL (0.55-1.30); GLOMERULAR FILTRATION RATE 54.4 (>39); POTASSIUM SERUM 3.1 MMOL/L (3.5-5.1); SODIUM LEVEL 144.0 MMOL/L (136-145)
[2025-01-25 09:41] LABS: MAGNESIUM LEVEL 1.4 MG/DL (1.8-2.4)
[2025-01-25 10:13] VITALS: BP 172/78; O2SAT 93
[2025-01-25 10:45] VITALS: BP 110/78
[2025-01-25] MEDS: KCL 10MEQ/100ML SWI (KRUN) 100 ML IV SCH (10:48)
[2025-01-25] MEDS: MAG SULF 1GM/100ML (MAG RUN) 100 ML IV SCH (10:48)
[2025-01-25] MEDS: SODIUM CHLORIDE 0.9% INJ 10 ML SYR IV PRN (13:04)
[2025-01-28 08:29] VITALS: BP 156/75; O2SAT 95
[2025-01-28 09:27] LABS: CALCIUM LEVEL 8.7 MG/DL (8.3-10.6); CARBON DIOXIDE LEVEL 28 MMOL/L (20-31); CHLORIDE LEVEL 105 MMOL/L (98-107); CREATININE FOR GFR 0.85 MG/DL (0.55-1.30); GLOMERULAR FILTRATION RATE > 60.0 (>39); MAGNESIUM LEVEL 1.6 MG/DL (1.8-2.4); POTASSIUM SERUM 3.6 MMOL/L (3.5-5.1); SODIUM LEVEL 145 MMOL/L (136-145)
[2025-01-28] MEDS: MAG SULF 1GM/100ML (MAG RUN) 100 ML IV SCH (09:57)
[2025-01-28] MEDS: KCL 10MEQ/100ML SWI (KRUN) 100 ML IV ONE (09:58)
[2025-01-28] MEDS: SODIUM CHLORIDE 0.9% INJ 10 ML SYR IV PRN (11:53)
[2025-02-02 08:00] VITALS: BP 115/69; O2SAT 97
[2025-02-02 08:17] LABS: BASO # 0.0 10^3/uL (0.0-0.2); BASO % 0.7 % (0.0-1.0); EOS # 0.2 10^3/uL (0.0-0.5); EOS % 2.8 % (0.0-3.0); LYMPH # 0.7 10^3/uL (1.5-5.0); LYMPH % 11.3 % (24.0-44.0); MONO # 0.5 10^3/uL (0.0-0.8); MONO % 8.8 % (2.0-8.0); NEUTROPHILS # 4.6 10^3/uL (1.5-8.5); NEUTROPHILS % 75.7 % (36.0-66.0); PLATELET COUNT, AUTOMATED 141 10^3/uL (150-450)
[2025-02-02 08:47] LABS: ALT/SGPT 12 U/L (7.0-40); AST/SGOT 13 U/L (<34); CALCIUM LEVEL 9.0 MG/DL (8.3-10.6); CARBON DIOXIDE LEVEL 31 MMOL/L (20-31); CHLORIDE LEVEL 105 MMOL/L (98-107); CREATININE FOR GFR 0.84 MG/DL (0.55-1.30); GLOMERULAR FILTRATION RATE > 60.0 (>39); MAGNESIUM LEVEL 1.6 MG/DL (1.8-2.4); POTASSIUM SERUM 3.7 MMOL/L (3.5-5.1); SODIUM LEVEL 144 MMOL/L (136-145)
[2025-02-02] MEDS: MAG SULF 1GM/100ML (MAG RUN) 100 ML IV SCH (09:02)
[2025-02-02] MEDS: FOSAPREPITANT 150 MG, VIAL 2 BAG 13MM ADAPTER 1 EACH in NS 250 ML IV SCH (10:00)
[2025-02-02] MEDS: PALONOSETRON 0.25 MG/5 ML VIAL IV SCH (10:01)
[2025-02-02] MEDS: dexAMETHasone 4 MG/ML 1 ML VIAL IV SCH (10:01)
[2025-02-02] MEDS: LEUCOVORIN CALCIUM IV SCH (11:05)
[2025-02-02] MEDS: D5W IV SCH ×2 (11:05→11:06)
[2025-02-02] MEDS: IRINOTECAN HYDROCHLORIDE IV SCH (11:06)
[2025-02-02] MEDS: FLUOROURACIL IV SCH (12:50)
[2025-02-02] MEDS: NS IV SCH (12:50)
[2025-02-04 11:00] VITALS: BP 122/68; O2SAT 97
[2025-02-04] MEDS: SODIUM CHLORIDE 0.9% INJ 10 ML SYR IV PRN (11:02)
[2025-02-04 11:55] LABS: CALCIUM LEVEL 8.8 MG/DL (8.3-10.6); CARBON DIOXIDE LEVEL 33.0 MMOL/L (20-31); CHLORIDE LEVEL 103.0 MMOL/L (98-107); CREATININE FOR GFR 0.97 MG/DL (0.55-1.30); GLOMERULAR FILTRATION RATE 59.6 (>39); MAGNESIUM LEVEL 2.0 MG/DL (1.8-2.4); POTASSIUM SERUM 3.7 MMOL/L (3.5-5.1); SODIUM LEVEL 143.0 MMOL/L (136-145)
[2025-02-05] MEDS: [UNRECOGNIZED DRUG - OTHER] SC ONE (07:59)
[2025-02-08 08:03] VITALS: BP 115/67; O2SAT 95
[2025-02-08 08:55] LABS: CALCIUM LEVEL 8.7 MG/DL (8.3-10.6); CARBON DIOXIDE LEVEL 30 MMOL/L (20-31); CHLORIDE LEVEL 100 MMOL/L (98-107); CREATININE FOR GFR 0.91 MG/DL (0.55-1.30); GLOMERULAR FILTRATION RATE > 60.0 (>39); MAGNESIUM LEVEL 1.5 MG/DL (1.8-2.4); POTASSIUM SERUM 3.5 MMOL/L (3.5-5.1); SODIUM LEVEL 140 MMOL/L (136-145)
[2025-02-08] MEDS: MAG SULF 1GM/100ML (MAG RUN) 100 ML IV SCH (09:14)
[2025-02-08] MEDS: KCL 10MEQ/100ML SWI (KRUN) 100 ML IV ONE (09:14)
[2025-02-08] MEDS: SODIUM CHLORIDE 0.9% INJ 10 ML SYR IV PRN (11:14)
[2025-02-11 07:55] VITALS: BP 123/75; O2SAT 98
[2025-02-11 08:38] LABS: CALCIUM LEVEL 8.9 MG/DL (8.3-10.6); CARBON DIOXIDE LEVEL 30 MMOL/L (20-31); CHLORIDE LEVEL 104 MMOL/L (98-107); CREATININE FOR GFR 0.96 MG/DL (0.55-1.30); GLOMERULAR FILTRATION RATE > 60.0 (>39); MAGNESIUM LEVEL 1.7 MG/DL (1.8-2.4); POTASSIUM SERUM 3.4 MMOL/L (3.5-5.1); SODIUM LEVEL 144 MMOL/L (136-145)
[2025-02-11] MEDS: KCL 10MEQ/100ML SWI (KRUN) 100 ML IV ONE (09:20)
[2025-02-11] MEDS: MAG SULF 1GM/100ML (MAG RUN) 100 ML IV ONE (09:20)
[2025-02-11] MEDS: SODIUM CHLORIDE 0.9% INJ 10 ML SYR IV PRN (10:25)
[2025-02-16 09:03] VITALS: BP 144/83; O2SAT 96
[2025-02-16 09:07] LABS: BASO # 0.1 10^3/uL (0.0-0.2); BASO % 0.5 % (0.0-1.0); EOS # 0.2 10^3/uL (0.0-0.5); EOS % 2.0 % (0.0-3.0); LYMPH # 0.8 10^3/uL (1.5-5.0); LYMPH % 7.6 % (24.0-44.0); MONO # 0.6 10^3/uL (0.0-0.8); MONO % 5.6 % (2.0-8.0); NEUTROPHILS # 9.0 10^3/uL (1.5-8.5); NEUTROPHILS % 83.3 % (36.0-66.0); PLATELET COUNT, AUTOMATED 125 10^3/uL (150-450)
[2025-02-16 09:44] LABS: ALT/SGPT 13 U/L (7.0-40); AST/SGOT 14 U/L (<34); CALCIUM LEVEL 8.6 MG/DL (8.3-10.6); CARBON DIOXIDE LEVEL 30 MMOL/L (20-31); CHLORIDE LEVEL 101 MMOL/L (98-107); CREATININE FOR GFR 0.93 MG/DL (0.55-1.30); GLOMERULAR FILTRATION RATE > 60.0 (>39); MAGNESIUM LEVEL 1.4 MG/DL (1.8-2.4); POTASSIUM SERUM 3.5 MMOL/L (3.5-5.1); SODIUM LEVEL 142 MMOL/L (136-145)
[2025-02-16] MEDS: MAG SULF 1GM/100ML (MAG RUN) 100 ML IV SCH (10:34)
[2025-02-16 11:32] LABS: CA19-9 TUMOR MARKER,CARBOHYDRA 1398.1 U/ML (<35.0)
[2025-02-16] MEDS: FOSAPREPITANT 150 MG, VIAL 2 BAG 13MM ADAPTER 1 EACH in NS 250 ML IV ONE (11:44)
[2025-02-16] MEDS: dexAMETHasone 4 MG/ML 1 ML VIAL IV SCH (11:45)
[2025-02-16] MEDS: PALONOSETRON 0.25 MG/5 ML VIAL IV SCH (11:45)
[2025-02-16] MEDS: D5W IV SCH ×2 (12:41→12:42)
[2025-02-16] MEDS: LEUCOVORIN CALCIUM IV SCH (12:41)
[2025-02-16] MEDS: IRINOTECAN HYDROCHLORIDE IV SCH (12:42)
[2025-02-16] MEDS: FLUOROURACIL IV SCH (14:24)
[2025-02-16] MEDS: NS IV SCH (14:24)
[2025-02-18 12:31] VITALS: BP 135/64; O2SAT 98
[2025-02-18 13:40] LABS: CALCIUM LEVEL 8.8 MG/DL (8.3-10.6); CARBON DIOXIDE LEVEL 30.0 MMOL/L (20-31); CHLORIDE LEVEL 103.0 MMOL/L (98-107); CREATININE FOR GFR 1.08 MG/DL (0.55-1.30); GLOMERULAR FILTRATION RATE 53.6 (>39); MAGNESIUM LEVEL 1.9 MG/DL (1.8-2.4); POTASSIUM SERUM 3.7 MMOL/L (3.5-5.1); SODIUM LEVEL 145.0 MMOL/L (136-145)
[2025-02-19] MEDS: [UNRECOGNIZED DRUG - OTHER] SC ONE (07:56)
[2025-02-22 08:00] VITALS: BP 116/66; O2SAT 94
[2025-02-22 08:42] LABS: CALCIUM LEVEL 8.4 MG/DL (8.3-10.6); CARBON DIOXIDE LEVEL 30.0 MMOL/L (20-31); CHLORIDE LEVEL 99.0 MMOL/L (98-107); CREATININE FOR GFR 0.91 MG/DL (0.55-1.30); GLOMERULAR FILTRATION RATE 65.8 (>39); POTASSIUM SERUM 3.5 MMOL/L (3.5-5.1); SODIUM LEVEL 138.0 MMOL/L (136-145)
[2025-02-22] MEDS: MAG SULF 1GM/100ML (MAG RUN) 100 ML IV ONE (09:09)
[2025-02-22] MEDS: KCL 10MEQ/100ML SWI (KRUN) 100 ML IV ONE (09:10)
[2025-02-22] MEDS: SODIUM CHLORIDE 0.9% INJ 10 ML SYR IV PRN (10:13)
[2025-02-25 08:15] VITALS: BP 120/63; O2SAT 97
[2025-02-25 08:58] LABS: CALCIUM LEVEL 8.6 MG/DL (8.3-10.6); CARBON DIOXIDE LEVEL 29.0 MMOL/L (20-31); CHLORIDE LEVEL 100.0 MMOL/L (98-107); CREATININE FOR GFR 0.95 MG/DL (0.55-1.30); GLOMERULAR FILTRATION RATE 62.5 (>39); MAGNESIUM LEVEL 1.5 MG/DL (1.8-2.4); POTASSIUM SERUM 3.5 MMOL/L (3.5-5.1); SODIUM LEVEL 139.0 MMOL/L (136-145)
[2025-02-25] MEDS: KCL 10MEQ/100ML SWI (KRUN) 100 ML IV ONE (09:57)
[2025-02-25] MEDS: MAG SULF 1GM/100ML (MAG RUN) 100 ML IV ONE (09:57)
[2025-02-25] MEDS: SODIUM CHLORIDE 0.9% INJ 10 ML SYR IV PRN (10:59)
[2025-03-01] MEDS: SODIUM CHLORIDE 0.9% INJ 10 ML SYR IV PRN (09:10)
[2025-03-01 09:26] LABS: BASO # 0.1 10^3/uL (0.0-0.2); BASO % 0.7 % (0.0-1.0); EOS # 0.2 10^3/uL (0.0-0.5); EOS % 1.7 % (0.0-3.0); LYMPH # 0.6 10^3/uL (1.5-5.0); LYMPH % 5.0 % (24.0-44.0); MONO # 0.8 10^3/uL (0.0-0.8); MONO % 6.2 % (2.0-8.0); NEUTROPHILS # 10.2 10^3/uL (1.5-8.5); NEUTROPHILS % 84.6 % (36.0-66.0); PLATELET COUNT, AUTOMATED 126 10^3/uL (150-450)
[2025-03-01 10:05] LABS: ALT/SGPT 12.0 U/L (7.0-40); AST/SGOT 13.0 U/L (<34); CALCIUM LEVEL 8.6 MG/DL (8.3-10.6); CARBON DIOXIDE LEVEL 29.0 MMOL/L (20-31); CHLORIDE LEVEL 100.0 MMOL/L (98-107); CREATININE FOR GFR 0.92 MG/DL (0.55-1.30); GLOMERULAR FILTRATION RATE 64.9 (>39); MAGNESIUM LEVEL 1.5 MG/DL (1.8-2.4); POTASSIUM SERUM 3.5 MMOL/L (3.5-5.1); SODIUM LEVEL 140.0 MMOL/L (136-145)
[2025-03-01 10:31] VITALS: BP 144/88; O2SAT 97
[2025-03-01] MEDS: KCL 10MEQ/100ML SWI (KRUN) 100 ML IV ONE (11:43)
[2025-03-01] MEDS: MAG SULF 1GM/100ML (MAG RUN) 100 ML IV SCH (11:44)
[2025-03-01 11:59] LABS: KETONE, URINE AUTO RFX NEGATIVE (NEGATIVE); MUCUS, URINE RFX SMALL (NEGATIVE); NITRITE, URINE AUTO RFX NEGATIVE (NEGATIVE); RBC, URINE AUTO RFX 2 /HPF (0-3); SQUAM EPITHELIAL CELL UR AURFX 1 /HPF (0-6); WBC, URINE AUTO RFX 2 /HPF (0-3)
[2025-03-01 12:11] LABS: LEUKOCYTE ESTERASE UR AUTO RFX TRACE (NEGATIVE)
[2025-03-04 08:00] VITALS: BP 113/61; O2SAT 97
[2025-03-04 08:39] LABS: CALCIUM LEVEL 8.9 MG/DL (8.3-10.6); CARBON DIOXIDE LEVEL 28.0 MMOL/L (20-31); CHLORIDE LEVEL 104.0 MMOL/L (98-107); CREATININE FOR GFR 0.88 MG/DL (0.55-1.30); GLOMERULAR FILTRATION RATE 68.5 (>39); POTASSIUM SERUM 3.3 MMOL/L (3.5-5.1); SODIUM LEVEL 144.0 MMOL/L (136-145)
[2025-03-04] MEDS: MAG SULF 1GM/100ML (MAG RUN) 100 ML IV ONE (09:26)
[2025-03-04] MEDS: KCL 10MEQ/100ML SWI (KRUN) 100 ML IV SCH (09:27)
[2025-03-04] MEDS: SODIUM CHLORIDE 0.9% INJ 10 ML SYR IV PRN (11:29)
[2025-03-08 07:55] VITALS: BP 125/70; O2SAT 97
[2025-03-08 08:19] LABS: BASO # 0.1 10^3/uL (0.0-0.2); BASO % 0.9 % (0.0-1.0); EOS # 0.2 10^3/uL (0.0-0.5); EOS % 3.2 % (0.0-3.0); LYMPH # 0.4 10^3/uL (1.5-5.0); LYMPH % 7.4 % (24.0-44.0); MONO # 0.6 10^3/uL (0.0-0.8); MONO % 10.9 % (2.0-8.0); NEUTROPHILS # 4.5 10^3/uL (1.5-8.5); NEUTROPHILS % 76.7 % (36.0-66.0); PLATELET COUNT, AUTOMATED 104 10^3/uL (150-450)
[2025-03-08 08:46] LABS: ALT/SGPT 12.0 U/L (7.0-40); AST/SGOT 10.0 U/L (<34); CALCIUM LEVEL 8.8 MG/DL (8.3-10.6); CARBON DIOXIDE LEVEL 30.0 MMOL/L (20-31); CHLORIDE LEVEL 104.0 MMOL/L (98-107); CREATININE FOR GFR 0.88 MG/DL (0.55-1.30); GLOMERULAR FILTRATION RATE 68.5 (>39); POTASSIUM SERUM 3.3 MMOL/L (3.5-5.1); SODIUM LEVEL 143.0 MMOL/L (136-145)
[2025-03-08] MEDS: MAG SULF 1GM/100ML (MAG RUN) 100 ML IV SCH (09:07)
[2025-03-08] MEDS: KCL 10MEQ/100ML SWI (KRUN) 100 ML IV SCH (09:07)
[2025-03-08] MEDS: PALONOSETRON 0.25 MG/5 ML VIAL IV SCH (11:00)
[2025-03-08] MEDS: dexAMETHasone 4 MG/ML 1 ML VIAL IV SCH (11:00)
[2025-03-08] MEDS: FOSAPREPITANT 150 MG, VIAL 2 BAG 13MM ADAPTER 1 EACH in NS 250 ML IV ONE (11:01)
[2025-03-08] MEDS: D5W IV SCH ×2 (11:26→11:30)
[2025-03-08] MEDS: LEUCOVORIN CALCIUM IV SCH (11:26)
[2025-03-08] MEDS: IRINOTECAN HYDROCHLORIDE IV SCH (11:30)
[2025-03-08] MEDS: NS IV SCH (13:05)
[2025-03-08] MEDS: FLUOROURACIL IV SCH (13:05)
[2025-03-10] MEDS: SODIUM CHLORIDE 0.9% INJ 10 ML SYR IV PRN (11:03)
[2025-03-10 11:10] VITALS: BP 113/70; O2SAT 97
[2025-03-10 12:08] LABS: CALCIUM LEVEL 8.6 MG/DL (8.3-10.6); CARBON DIOXIDE LEVEL 30.0 MMOL/L (20-31); CHLORIDE LEVEL 101.0 MMOL/L (98-107); CREATININE FOR GFR 0.95 MG/DL (0.55-1.30); GLOMERULAR FILTRATION RATE 62.5 (>39); MAGNESIUM LEVEL 2.0 MG/DL (1.8-2.4); POTASSIUM SERUM 3.6 MMOL/L (3.5-5.1); SODIUM LEVEL 140.0 MMOL/L (136-145)
[2025-03-11] MEDS: [UNRECOGNIZED DRUG - OTHER] SC ONE (08:25)
[2025-03-15 08:10] VITALS: BP 124/69; O2SAT 96
[2025-03-15 08:44] LABS: CALCIUM LEVEL 8.7 MG/DL (8.3-10.6); CARBON DIOXIDE LEVEL 31.0 MMOL/L (20-31); CHLORIDE LEVEL 101.0 MMOL/L (98-107); CREATININE FOR GFR 0.92 MG/DL (0.55-1.30); GLOMERULAR FILTRATION RATE 64.9 (>39); MAGNESIUM LEVEL 1.6 MG/DL (1.8-2.4); POTASSIUM SERUM 3.4 MMOL/L (3.5-5.1); SODIUM LEVEL 142.0 MMOL/L (136-145)
[2025-03-15] MEDS: MAG SULF 1GM/100ML (MAG RUN) 100 ML IV ONE (09:22)
[2025-03-15] MEDS: KCL 10MEQ/100ML SWI (KRUN) 100 ML IV ONE (09:22)
[2025-03-15] MEDS: SODIUM CHLORIDE 0.9% INJ 10 ML SYR IV PRN (10:27)
[2025-03-18 08:00] VITALS: BP 136/68; O2SAT 95
[2025-03-18 08:43] LABS: CALCIUM LEVEL 8.6 MG/DL (8.3-10.6); CARBON DIOXIDE LEVEL 30.0 MMOL/L (20-31); CHLORIDE LEVEL 102.0 MMOL/L (98-107); CREATININE FOR GFR 0.94 MG/DL (0.55-1.30); GLOMERULAR FILTRATION RATE 63.3 (>39); MAGNESIUM LEVEL 1.5 MG/DL (1.8-2.4); POTASSIUM SERUM 3.4 MMOL/L (3.5-5.1); SODIUM LEVEL 143.0 MMOL/L (136-145)
[2025-03-18] MEDS: MAG SULF 1GM/100ML (MAG RUN) 100 ML IV SCH (09:14)
[2025-03-18] MEDS: KCL 10MEQ/100ML SWI (KRUN) 100 ML IV ONE (10:08)
[2025-03-18] MEDS: SODIUM CHLORIDE 0.9% INJ 10 ML SYR IV PRN (11:17)
[2025-03-22 08:44] LABS: BASO # 0.1 10^3/uL (0.0-0.2); BASO % 0.5 % (0.0-1.0); EOS # 0.2 10^3/uL (0.0-0.5); EOS % 1.7 % (0.0-3.0); LYMPH # 0.6 10^3/uL (1.5-5.0); LYMPH % 4.3 % (24.0-44.0); MONO # 0.7 10^3/uL (0.0-0.8); MONO % 5.4 % (2.0-8.0); NEUTROPHILS # 11.9 10^3/uL (1.5-8.5); NEUTROPHILS % 87.2 % (36.0-66.0); PLATELET COUNT, AUTOMATED 128 10^3/uL (150-450)
[2025-03-22 09:12] LABS: ALT/SGPT 17.0 U/L (7.0-40); AST/SGOT 17.0 U/L (<34); CALCIUM LEVEL 8.8 MG/DL (8.3-10.6); CARBON DIOXIDE LEVEL 30.0 MMOL/L (20-31); CHLORIDE LEVEL 102.0 MMOL/L (98-107); CREATININE FOR GFR 0.92 MG/DL (0.55-1.30); GLOMERULAR FILTRATION RATE 64.9 (>39); POTASSIUM SERUM 3.4 MMOL/L (3.5-5.1); SODIUM LEVEL 142.0 MMOL/L (136-145)
[2025-03-22 09:44] VITALS: BP 156/78; O2SAT 91
[2025-03-22] MEDS: MAG SULF 1GM/100ML (MAG RUN) 100 ML IV SCH (10:50)
[2025-03-22] MEDS: KCL 10MEQ/100ML SWI (KRUN) 100 ML IV ONE (10:51)
[2025-03-22] MEDS: dexAMETHasone 4 MG/ML 1 ML VIAL IV SCH (11:46)
[2025-03-22] MEDS: FOSAPREPITANT 150 MG, VIAL 2 BAG 13MM ADAPTER 1 EACH in NS 250 ML IV ONE (11:46)
[2025-03-22] MEDS: PALONOSETRON 0.25 MG/5 ML VIAL IV SCH (11:46)
[2025-03-22] MEDS: LEUCOVORIN CALCIUM IV SCH (12:49)
[2025-03-22] MEDS: D5W IV SCH ×2 (12:49→12:50)
[2025-03-22] MEDS: IRINOTECAN HYDROCHLORIDE IV SCH (12:50)
[2025-03-22 14:01] LABS: CA19-9 TUMOR MARKER,CARBOHYDRA 1708.1 U/ML (<35.0)
[2025-03-22] MEDS: NS IV SCH (14:32)
[2025-03-22] MEDS: FLUOROURACIL IV SCH (14:32)
[2025-03-24] MEDS: SODIUM CHLORIDE 0.9% INJ 10 ML SYR IV PRN (11:49)
[2025-03-24 12:23] VITALS: BP 126/74; O2SAT 97
[2025-03-24 13:12] LABS: CALCIUM LEVEL 8.7 MG/DL (8.3-10.6); CARBON DIOXIDE LEVEL 30.0 MMOL/L (20-31); CHLORIDE LEVEL 102.0 MMOL/L (98-107); CREATININE FOR GFR 0.99 MG/DL (0.55-1.30); GLOMERULAR FILTRATION RATE 59.5 (>39); MAGNESIUM LEVEL 2.0 MG/DL (1.8-2.4); POTASSIUM SERUM 3.3 MMOL/L (3.5-5.1); SODIUM LEVEL 145.0 MMOL/L (136-145)
[2025-03-25] MEDS: KCL 10MEQ/100ML SWI (KRUN) 100 ML IV SCH (08:10)
[2025-03-25] MEDS: [UNRECOGNIZED DRUG - OTHER] SC ONE (08:10)
[2025-03-29 13:12] VITALS: BP 124/68; O2SAT 95
[2025-03-29 13:37] LABS: CALCIUM LEVEL 9.3 MG/DL (8.3-10.6); CARBON DIOXIDE LEVEL 32.0 MMOL/L (20-31); CHLORIDE LEVEL 94.0 MMOL/L (98-107); CREATININE FOR GFR 1.03 MG/DL (0.55-1.30); GLOMERULAR FILTRATION RATE 56.7 (>39); MAGNESIUM LEVEL 1.5 MG/DL (1.8-2.4); POTASSIUM SERUM 3.3 MMOL/L (3.5-5.1); SODIUM LEVEL 135.0 MMOL/L (136-145)
[2025-03-29] MEDS: KCL 10MEQ/100ML SWI (KRUN) 100 ML IV ONE (14:08)
[2025-03-29] MEDS: MAG SULF 1GM/100ML (MAG RUN) 100 ML IV ONE (14:09)
[2025-03-29] MEDS: SODIUM CHLORIDE 0.9% INJ 10 ML SYR IV PRN (15:08)
[2025-04-01 08:00] VITALS: BP 126/78; O2SAT 97
[2025-04-01 08:48] LABS: CALCIUM LEVEL 8.8 MG/DL (8.3-10.6); CARBON DIOXIDE LEVEL 31.0 MMOL/L (20-31); CHLORIDE LEVEL 94.0 MMOL/L (98-107); CREATININE FOR GFR 1.26 MG/DL (0.55-1.30); GLOMERULAR FILTRATION RATE 44.5 (>39); MAGNESIUM LEVEL 1.5 MG/DL (1.8-2.4); POTASSIUM SERUM 3.0 MMOL/L (3.5-5.1); SODIUM LEVEL 137.0 MMOL/L (136-145)
[2025-04-01] MEDS: MAG SULF 1GM/100ML (MAG RUN) 100 ML IV SCH (09:48)
[2025-04-01] MEDS: KCL 10MEQ/100ML SWI (KRUN) 100 ML IV SCH (09:48)
[2025-04-06 08:55] LABS: BASO # 0.1 10^3/uL (0.0-0.2); BASO % 0.7 % (0.0-1.0); EOS # 0.2 10^3/uL (0.0-0.5); EOS % 1.2 % (0.0-3.0); LYMPH # 0.6 10^3/uL (1.5-5.0); LYMPH % 4.3 % (24.0-44.0); MONO # 0.8 10^3/uL (0.0-0.8); MONO % 6.1 % (2.0-8.0); NEUTROPHILS # 11.6 10^3/uL (1.5-8.5); NEUTROPHILS % 86.7 % (36.0-66.0); PLATELET COUNT, AUTOMATED 174 10^3/uL (150-450)
[2025-04-06 09:44] LABS: ALT/SGPT 17.0 U/L (7.0-40); AST/SGOT 17.0 U/L (<34); CALCIUM LEVEL 8.8 MG/DL (8.3-10.6); CARBON DIOXIDE LEVEL 28.0 MMOL/L (20-31); CHLORIDE LEVEL 100.0 MMOL/L (98-107); CREATININE FOR GFR 1.08 MG/DL (0.55-1.30); GLOMERULAR FILTRATION RATE 53.6 (>39); MAGNESIUM LEVEL 1.8 MG/DL (1.8-2.4); POTASSIUM SERUM 2.9 MMOL/L (3.5-5.1); SODIUM LEVEL 136.0 MMOL/L (136-145)
[2025-04-06 10:49] VITALS: BP 123/69; O2SAT 98
[2025-04-06] MEDS: KCL 10MEQ/100ML SWI (KRUN) 100 ML IV SCH (10:52)
[2025-04-06 11:33] LABS: CA19-9 TUMOR MARKER,CARBOHYDRA 1537.0 U/ML (<35.0)
[2025-04-09 08:00] VITALS: BP 160/88; O2SAT 97
[2025-04-09 08:20] VITALS: BP 100/88
[2025-04-09 09:00] LABS: CALCIUM LEVEL 8.9 MG/DL (8.3-10.6); CARBON DIOXIDE LEVEL 29.0 MMOL/L (20-31); CHLORIDE LEVEL 102.0 MMOL/L (98-107); CREATININE FOR GFR 0.95 MG/DL (0.55-1.30); GLOMERULAR FILTRATION RATE 62.5 (>39); MAGNESIUM LEVEL 1.7 MG/DL (1.8-2.4); POTASSIUM SERUM 3.8 MMOL/L (3.5-5.1); SODIUM LEVEL 141.0 MMOL/L (136-145)
[2025-04-09] MEDS: MAG SULF 1GM/100ML (MAG RUN) 100 ML IV ONE (10:18)
[2025-04-09] MEDS: SODIUM CHLORIDE 0.9% INJ 10 ML SYR IV PRN (11:18)
[2025-04-12 07:55] VITALS: BP 120/65; O2SAT 99
[2025-04-12 09:01] LABS: CALCIUM LEVEL 8.3 MG/DL (8.3-10.6); CARBON DIOXIDE LEVEL 29.0 MMOL/L (20-31); CHLORIDE LEVEL 100.0 MMOL/L (98-107); CREATININE FOR GFR 1.1 MG/DL (0.55-1.30); GLOMERULAR FILTRATION RATE 52.4 (>39); MAGNESIUM LEVEL 1.6 MG/DL (1.8-2.4); POTASSIUM SERUM 3.7 MMOL/L (3.5-5.1); SODIUM LEVEL 138.0 MMOL/L (136-145)
[2025-04-12] MEDS: MAG SULF 1GM/100ML (MAG RUN) 100 ML IV SCH (09:32)
[2025-04-12] MEDS: SODIUM CHLORIDE 0.9% INJ 10 ML SYR IV PRN (11:27)
[2025-04-19 09:25] VITALS: BP 153/67; O2SAT 97
[2025-04-19 10:05] LABS: CALCIUM LEVEL 8.9 MG/DL (8.3-10.6); CARBON DIOXIDE LEVEL 30.0 MMOL/L (20-31); CHLORIDE LEVEL 102.0 MMOL/L (98-107); CREATININE FOR GFR 0.93 MG/DL (0.55-1.30); GLOMERULAR FILTRATION RATE 64.1 (>39); MAGNESIUM LEVEL 1.6 MG/DL (1.8-2.4); POTASSIUM SERUM 3.9 MMOL/L (3.5-5.1); SODIUM LEVEL 142.0 MMOL/L (136-145)
[2025-04-19] MEDS: MAG SULF 1GM/100ML (MAG RUN) 100 ML IV ONE (10:19)
[2025-04-19] MEDS: SODIUM CHLORIDE 0.9% INJ 10 ML SYR IV PRN (11:17)
[2025-04-26 08:48] LABS: BASO # 0.0 10^3/uL (0.0-0.2); BASO % 0.7 % (0.0-1.0); EOS # 0.1 10^3/uL (0.0-0.5); EOS % 2.5 % (0.0-3.0); LYMPH # 0.4 10^3/uL (1.5-5.0); LYMPH % 7.4 % (24.0-44.0); MONO # 0.5 10^3/uL (0.0-0.8); MONO % 9.5 % (2.0-8.0); NEUTROPHILS # 4.5 10^3/uL (1.5-8.5); NEUTROPHILS % 79.5 % (36.0-66.0); PLATELET COUNT, AUTOMATED 170 10^3/uL (150-450)
[2025-04-26 09:32] LABS: ALT/SGPT 13.0 U/L (7.0-40); CALCIUM LEVEL 8.9 MG/DL (8.3-10.6); CARBON DIOXIDE LEVEL 29.0 MMOL/L (20-31); CHLORIDE LEVEL 103.0 MMOL/L (98-107); CREATININE FOR GFR 1.02 MG/DL (0.55-1.30); GLOMERULAR FILTRATION RATE 57.4 (>39); MAGNESIUM LEVEL 1.7 MG/DL (1.8-2.4); POTASSIUM SERUM 3.7 MMOL/L (3.5-5.1); SODIUM LEVEL 144.0 MMOL/L (136-145)
[2025-04-26 09:42] VITALS: BP 145/79; O2SAT 97
[2025-04-26 09:45] LABS: AST/SGOT 16.0 U/L (<34)
[2025-04-26] MEDS: MAG SULF 1GM/100ML (MAG RUN) 100 ML IV ONE (10:21)
[2025-04-26] MEDS: SODIUM CHLORIDE 0.9% INJ 10 ML SYR IV PRN (11:18)
[2025-04-26 11:57] LABS: CA19-9 TUMOR MARKER,CARBOHYDRA 1508.8 U/ML (<35.0)
[2025-05-03 09:01] LABS: BASO # 0.0 10^3/uL (0.0-0.2); BASO % 0.3 % (0.0-1.0); EOS # 0.1 10^3/uL (0.0-0.5); EOS % 1.0 % (0.0-3.0); LYMPH # 0.5 10^3/uL (1.5-5.0); LYMPH % 7.4 % (24.0-44.0); MONO # 0.6 10^3/uL (0.0-0.8); MONO % 9.0 % (2.0-8.0); NEUTROPHILS # 5.9 10^3/uL (1.5-8.5); NEUTROPHILS % 82.0 % (36.0-66.0); PLATELET COUNT, AUTOMATED 143 10^3/uL (150-450)
[2025-05-03 09:32] LABS: MAGNESIUM LEVEL 1.6 MG/DL (1.8-2.4)
[2025-05-03 09:34] LABS: ALT/SGPT 14.0 U/L (7.0-40); AST/SGOT 22.0 U/L (<34); CALCIUM LEVEL 9.1 MG/DL (8.3-10.6); CARBON DIOXIDE LEVEL 29.0 MMOL/L (20-31); CHLORIDE LEVEL 103.0 MMOL/L (98-107); CREATININE FOR GFR 1.06 MG/DL (0.55-1.30); GLOMERULAR FILTRATION RATE 54.8 (>39); POTASSIUM SERUM 3.8 MMOL/L (3.5-5.1); SODIUM LEVEL 143.0 MMOL/L (136-145)
[2025-05-03 09:55] VITALS: BP 147/84; O2SAT 98
[2025-05-03] MEDS: MAG SULF 1GM/100ML (MAG RUN) 100 ML IV SCH (10:27)
[2025-05-03 10:40] LABS: CA19-9 TUMOR MARKER,CARBOHYDRA 1424.4 U/ML (<35.0)
[2025-05-03] MEDS: SODIUM CHLORIDE 0.9% INJ 10 ML SYR IV PRN (12:25)
[2025-05-10 07:55] VITALS: BP 133/70; O2SAT 98
[2025-05-10 08:50] LABS: ALT/SGPT 12.0 U/L (7.0-40); AST/SGOT 21.0 U/L (<34); CALCIUM LEVEL 9.1 MG/DL (8.3-10.6); CARBON DIOXIDE LEVEL 28.0 MMOL/L (20-31); CHLORIDE LEVEL 102.0 MMOL/L (98-107); CREATININE FOR GFR 1.14 MG/DL (0.55-1.30); GLOMERULAR FILTRATION RATE 50.2 (>39); MAGNESIUM LEVEL 1.6 MG/DL (1.8-2.4); POTASSIUM SERUM 3.8 MMOL/L (3.5-5.1); SODIUM LEVEL 142.0 MMOL/L (136-145)
[2025-05-10] MEDS: MAG SULF 1GM/100ML (MAG RUN) 100 ML IV ONE (09:00)
[2025-05-10] MEDS: SODIUM CHLORIDE 0.9% INJ 10 ML SYR IV PRN (09:58)
[2025-05-17 08:30] LABS: BASO # 0.0 10^3/uL (0.0-0.2); BASO % 0.3 % (0.0-1.0); EOS # 0.1 10^3/uL (0.0-0.5); EOS % 1.1 % (0.0-3.0); LYMPH # 0.5 10^3/uL (1.5-5.0); LYMPH % 7.0 % (24.0-44.0); MONO # 0.5 10^3/uL (0.0-0.8); MONO % 7.9 % (2.0-8.0); NEUTROPHILS # 5.5 10^3/uL (1.5-8.5); NEUTROPHILS % 83.5 % (36.0-66.0); PLATELET COUNT, AUTOMATED 138 10^3/uL (150-450)
[2025-05-17 09:12] LABS: ALT/SGPT 13.0 U/L (7.0-40); AST/SGOT 27.0 U/L (<34); CALCIUM LEVEL 8.9 MG/DL (8.3-10.6); CARBON DIOXIDE LEVEL 29.0 MMOL/L (20-31); CHLORIDE LEVEL 103.0 MMOL/L (98-107); CREATININE FOR GFR 1.03 MG/DL (0.55-1.30); GLOMERULAR FILTRATION RATE 56.7 (>39); MAGNESIUM LEVEL 1.4 MG/DL (1.8-2.4); POTASSIUM SERUM 3.4 MMOL/L (3.5-5.1); SODIUM LEVEL 144.0 MMOL/L (136-145)
[2025-05-17 09:14] VITALS: BP 139/80
[2025-05-17 10:14] LABS: CA19-9 TUMOR MARKER,CARBOHYDRA 1789.1 U/ML (<35.0)
[2025-05-17] MEDS: MAG SULF 1GM/100ML (MAG RUN) 100 ML IV SCH (10:14)
[2025-05-17] MEDS: KCL 10MEQ/100ML SWI (KRUN) 100 ML IV ONE (10:14)
[2025-05-17] MEDS: PALONOSETRON 0.25 MG/5 ML VIAL IV SCH (11:11)
[2025-05-17] MEDS: FOSAPREPITANT 150 MG, VIAL 2 BAG 13MM ADAPTER 1 EACH in NS 250 ML IV ONE (11:11)
[2025-05-17] MEDS: dexAMETHasone 4 MG/ML 1 ML VIAL IV SCH (11:11)
[2025-05-17] MEDS: D5W IV SCH ×2 (12:14→12:18)
[2025-05-17] MEDS: LEUCOVORIN CALCIUM IV SCH (12:14)
[2025-05-17] MEDS: IRINOTECAN HYDROCHLORIDE IV SCH (12:18)
[2025-05-17] MEDS: FLUOROURACIL IV SCH (13:59)
[2025-05-17] MEDS: NS IV SCH (13:59)
[2025-05-19 11:41] VITALS: BP 138/67; O2SAT 98
[2025-05-19] MEDS: SODIUM CHLORIDE 0.9% INJ 10 ML SYR IV PRN (11:43)
[2025-05-19 12:42] LABS: CALCIUM LEVEL 8.7 MG/DL (8.3-10.6); CARBON DIOXIDE LEVEL 30.0 MMOL/L (20-31); CHLORIDE LEVEL 102.0 MMOL/L (98-107); CREATININE FOR GFR 1.17 MG/DL (0.55-1.30); GLOMERULAR FILTRATION RATE 48.7 (>39); MAGNESIUM LEVEL 2.0 MG/DL (1.8-2.4); POTASSIUM SERUM 3.4 MMOL/L (3.5-5.1); SODIUM LEVEL 143.0 MMOL/L (136-145)
[2025-05-20 08:00] VITALS: BP 125/74; O2SAT 96
[2025-05-20] MEDS: KCL 10MEQ/100ML SWI (KRUN) 100 ML IV ONE (08:23)
[2025-05-20] MEDS: NS 500 ML IV ONE (08:24)
[2025-05-20] MEDS: [UNRECOGNIZED DRUG - OTHER] SC ONE (08:38)
[2025-05-20] MEDS: SODIUM CHLORIDE 0.9% INJ 10 ML SYR IV PRN (09:22)
[2025-05-24 07:52] VITALS: BP 130/60; O2SAT 93
[2025-05-24 08:54] LABS: CALCIUM LEVEL 8.3 MG/DL (8.3-10.6); CARBON DIOXIDE LEVEL 30.0 MMOL/L (20-31); CHLORIDE LEVEL 99.0 MMOL/L (98-107); CREATININE FOR GFR 1.27 MG/DL (0.55-1.30); GLOMERULAR FILTRATION RATE 44.1 (>39); POTASSIUM SERUM 3.2 MMOL/L (3.5-5.1); SODIUM LEVEL 140.0 MMOL/L (136-145)
[2025-05-24] MEDS: MAG SULF 1GM/100ML (MAG RUN) 100 ML IV ONE (10:13)
[2025-05-24] MEDS: KCL 10MEQ/100ML SWI (KRUN) 100 ML IV ONE (10:14)
[2025-05-24] MEDS: SODIUM CHLORIDE 0.9% INJ 10 ML SYR IV PRN (11:16)
[2025-05-26 07:54] VITALS: BP 120/61; O2SAT 98
[2025-05-27 08:50] LABS: CALCIUM LEVEL 8.4 MG/DL (8.3-10.6); CARBON DIOXIDE LEVEL 28.0 MMOL/L (20-31); CHLORIDE LEVEL 101.0 MMOL/L (98-107); CREATININE FOR GFR 1.31 MG/DL (0.55-1.30); GLOMERULAR FILTRATION RATE 42.5 (>39); MAGNESIUM LEVEL 1.4 MG/DL (1.8-2.4); POTASSIUM SERUM 3.2 MMOL/L (3.5-5.1); SODIUM LEVEL 141.0 MMOL/L (136-145)
[2025-05-27] MEDS: MAG SULF 1GM/100ML (MAG RUN) 100 ML IV SCH (09:29)
[2025-05-27] MEDS: KCL 10MEQ/100ML SWI (KRUN) 100 ML IV SCH (09:29)
[2025-05-27] MEDS: FOSAPREPITANT 150 MG, VIAL 2 BAG 13MM ADAPTER 1 EACH in NS 250 ML IV ONE (10:45)
[2025-05-27] MEDS: SODIUM CHLORIDE 0.9% INJ 10 ML SYR IV PRN (11:24)
[2025-05-31 08:26] LABS: BASO # 0.1 10^3/uL (0.0-0.2); BASO % 0.6 % (0.0-1.0); EOS # 0.1 10^3/uL (0.0-0.5); EOS % 0.8 % (0.0-3.0); LYMPH # 0.5 10^3/uL (1.5-5.0); LYMPH % 5.8 % (24.0-44.0); MONO # 0.5 10^3/uL (0.0-0.8); MONO % 6.3 % (2.0-8.0); NEUTROPHILS # 7.0 10^3/uL (1.5-8.5); NEUTROPHILS % 85.0 % (36.0-66.0); PLATELET COUNT, AUTOMATED 177 10^3/uL (150-450)
[2025-05-31 08:28] VITALS: BP 148/77; O2SAT 98
[2025-05-31 08:56] LABS: ALT/SGPT 13.0 U/L (7.0-40); AST/SGOT 19.0 U/L (<34); CALCIUM LEVEL 8.8 MG/DL (8.3-10.6); CARBON DIOXIDE LEVEL 28.0 MMOL/L (20-31); CHLORIDE LEVEL 103.0 MMOL/L (98-107); CREATININE FOR GFR 1.23 MG/DL (0.55-1.30); GLOMERULAR FILTRATION RATE 45.8 (>39); MAGNESIUM LEVEL 1.5 MG/DL (1.8-2.4); POTASSIUM SERUM 3.3 MMOL/L (3.5-5.1); SODIUM LEVEL 144.0 MMOL/L (136-145)
[2025-05-31 09:48] LABS: CA19-9 TUMOR MARKER,CARBOHYDRA 2956.5 U/ML (<35.0)
[2025-05-31] MEDS: PALONOSETRON 0.25 MG/5 ML VIAL IV SCH (10:11)
[2025-05-31] MEDS: dexAMETHasone 4 MG/ML 1 ML VIAL IV SCH (10:11)
[2025-05-31] MEDS: KCL 10MEQ/100ML SWI (KRUN) 100 ML IV ONE (10:12)
[2025-05-31] MEDS: FOSAPREPITANT 150 MG, VIAL 2 BAG 13MM ADAPTER 1 EACH in NS 250 ML IV ONE (10:12)
[2025-05-31] MEDS: MAG SULF 1GM/100ML (MAG RUN) 100 ML IV ONE (10:12)
[2025-05-31 10:17] LABS: IRON (FE) 14 UG/DL (50-170); PERCENT SATURATION 3.5 % (13.2-45.0)
[2025-05-31 11:32] LABS: IRON (FE) 14 UG/DL (50-170); LDH LACTATE DEHYDROGENASE 186 U/L (120-246); PERCENT SATURATION 4.5 % (13.2-45.0); VITAMIN B12 LEVEL > 2000 PG/ML (211-911)
[2025-05-31] MEDS: D5W IV SCH ×2 (11:34→11:35)
[2025-05-31] MEDS: LEUCOVORIN CALCIUM IV SCH (11:34)
[2025-05-31] MEDS: IRINOTECAN HYDROCHLORIDE IV SCH (11:35)
[2025-05-31] MEDS: NS IV SCH (13:34)
[2025-05-31] MEDS: FLUOROURACIL IV SCH (13:34)
[2025-05-31 16:05] LABS: VITAMIN B12 LEVEL > 2000 PG/ML (211-911)
[2025-06-02 11:16] VITALS: BP 123/76; O2SAT 96
[2025-06-02] MEDS: IRON SUCROSE 100 MG/5 ML VIAL IVP SCH (11:26)
[2025-06-02 11:50] VITALS: BP 101/62; O2SAT 96
[2025-06-02] MEDS: SODIUM CHLORIDE 0.9% INJ 10 ML SYR IV PRN (11:55)
[2025-06-02 12:07] LABS: ALT/SGPT 17.0 U/L (7.0-40); AST/SGOT 20.0 U/L (<34); CALCIUM LEVEL 8.4 MG/DL (8.3-10.6); CARBON DIOXIDE LEVEL 28.0 MMOL/L (20-31); CHLORIDE LEVEL 101.0 MMOL/L (98-107); CREATININE FOR GFR 1.24 MG/DL (0.55-1.30); GLOMERULAR FILTRATION RATE 45.4 (>39); MAGNESIUM LEVEL 1.8 MG/DL (1.8-2.4); POTASSIUM SERUM 3.9 MMOL/L (3.5-5.1); SODIUM LEVEL 142.0 MMOL/L (136-145)
[2025-06-03] MEDS: [UNRECOGNIZED DRUG - OTHER] SC ONE (08:24)
[2025-06-07 07:56] VITALS: BP 124/64; O2SAT 99
[2025-06-07 08:46] LABS: ALT/SGPT 14.0 U/L (7.0-40); AST/SGOT 17.0 U/L (<34); CALCIUM LEVEL 8.2 MG/DL (8.3-10.6); CARBON DIOXIDE LEVEL 30.0 MMOL/L (20-31); CHLORIDE LEVEL 101.0 MMOL/L (98-107); CREATININE FOR GFR 1.13 MG/DL (0.55-1.30); GLOMERULAR FILTRATION RATE 50.7 (>39); MAGNESIUM LEVEL 1.4 MG/DL (1.8-2.4); POTASSIUM SERUM 3.1 MMOL/L (3.5-5.1); SODIUM LEVEL 143.0 MMOL/L (136-145)
[2025-06-07] MEDS: MAG SULF 1GM/100ML (MAG RUN) 100 ML IV SCH (09:08)
[2025-06-07] MEDS: KCL 10MEQ/100ML SWI (KRUN) 100 ML IV SCH (09:13)
[2025-06-07] MEDS: SODIUM CHLORIDE 0.9% INJ 10 ML SYR IV PRN (11:10)
[2025-06-10 07:52] VITALS: BP 120/56; O2SAT 95
[2025-06-10 08:49] LABS: CALCIUM LEVEL 8.3 MG/DL (8.3-10.6); CARBON DIOXIDE LEVEL 29.0 MMOL/L (20-31); CHLORIDE LEVEL 100.0 MMOL/L (98-107); CREATININE FOR GFR 1.21 MG/DL (0.55-1.30); GLOMERULAR FILTRATION RATE 46.7 (>39); MAGNESIUM LEVEL 1.6 MG/DL (1.8-2.4); POTASSIUM SERUM 2.9 MMOL/L (3.5-5.1); SODIUM LEVEL 141.0 MMOL/L (136-145)
[2025-06-10] MEDS: IRON SUCROSE 100 MG/5 ML VIAL IVP SCH (08:55)
[2025-06-10] MEDS: MAG SULF 1GM/100ML (MAG RUN) 100 ML IV SCH (09:35)
[2025-06-10] MEDS: KCL 10MEQ/100ML SWI (KRUN) 100 ML IV SCH (09:36)
[2025-06-10] MEDS: SODIUM CHLORIDE 0.9% INJ 10 ML SYR IV PRN (12:48)
[2025-06-14 10:12] LABS: BASO # 0.1 10^3/uL (0.0-0.2); BASO % 0.6 % (0.0-1.0); EOS # 0.1 10^3/uL (0.0-0.5); EOS % 0.7 % (0.0-3.0); LYMPH # 0.5 10^3/uL (1.5-5.0); LYMPH % 3.6 % (24.0-44.0); MONO # 0.6 10^3/uL (0.0-0.8); MONO % 4.7 % (2.0-8.0); NEUTROPHILS # 11.4 10^3/uL (1.5-8.5); NEUTROPHILS % 89.2 % (36.0-66.0); PLATELET COUNT, AUTOMATED 179 10^3/uL (150-450)
[2025-06-14 10:43] LABS: ALT/SGPT 12.0 U/L (7.0-40); AST/SGOT 20.0 U/L (<34); CALCIUM LEVEL 8.3 MG/DL (8.3-10.6); CARBON DIOXIDE LEVEL 28.0 MMOL/L (20-31); CHLORIDE LEVEL 105.0 MMOL/L (98-107); CREATININE FOR GFR 1.3 MG/DL (0.55-1.30); GLOMERULAR FILTRATION RATE 42.9 (>39); POTASSIUM SERUM 3.0 MMOL/L (3.5-5.1); SODIUM LEVEL 145.0 MMOL/L (136-145)
[2025-06-14 10:55] VITALS: BP 138/79
[2025-06-14] MEDS: KCL 10MEQ/100ML SWI (KRUN) 100 ML IV SCH (12:24)
[2025-06-14 12:40] LABS: CA19-9 TUMOR MARKER,CARBOHYDRA 2666.3 U/ML (<35.0)
[2025-06-14] MEDS: MAG SULF 1GM/100ML (MAG RUN) 100 ML IV ONE (13:22)
[2025-06-14] MEDS: IRON SUCROSE 100 MG/5 ML VIAL IVP SCH (14:30)
[2025-06-14 14:48] VITALS: BP 102/52; O2SAT 96
[2025-06-14] MEDS: SODIUM CHLORIDE 0.9% INJ 10 ML SYR IV PRN (15:03)
[2025-06-16] VITALS (9 sets, daily range): BP systolic 91–111; BP diastolic 47–67; TEMP 96.1–97.5; O2SAT 94–98
[2025-06-16 08:19] LABS: BASO # 0.0 10^3/uL (0.0-0.2); BASO % 0.5 % (0.0-1.0); EOS # 0.1 10^3/uL (0.0-0.5); EOS % 0.7 % (0.0-3.0); LYMPH # 0.5 10^3/uL (1.5-5.0); LYMPH % 5.9 % (24.0-44.0); MONO # 0.6 10^3/uL (0.0-0.8); MONO % 6.8 % (2.0-8.0); NEUTROPHILS # 7.1 10^3/uL (1.5-8.5); NEUTROPHILS % 84.7 % (36.0-66.0); PLATELET COUNT, AUTOMATED 195 10^3/uL (150-450)
[2025-06-16 08:44] LABS: ALT/SGPT 13.0 U/L (7.0-40); AST/SGOT 19.0 U/L (<34); CALCIUM LEVEL 8.4 MG/DL (8.3-10.6); CARBON DIOXIDE LEVEL 25.0 MMOL/L (20-31); CHLORIDE LEVEL 109.0 MMOL/L (98-107); CREATININE FOR GFR 1.25 MG/DL (0.55-1.30); GLOMERULAR FILTRATION RATE 45.0 (>39); MAGNESIUM LEVEL 1.8 MG/DL (1.8-2.4); POTASSIUM SERUM 3.2 MMOL/L (3.5-5.1); SODIUM LEVEL 147.0 MMOL/L (136-145)
[2025-06-16] MEDS: KCL 10MEQ/100ML SWI (KRUN) 100 ML IV SCH (09:18)
[2025-06-16] MEDS: ACETAMINOPHEN TAB 650MG PO X 1 PO ONE (09:20)
[2025-06-16] MEDS: diphenhydrAMINE (25MG CAP) 25MG PO X 1 PO ONE (09:20)
[2025-06-16] MEDS: SODIUM CHLORIDE 0.9% INJ 10 ML SYR IV PRN (15:06)
[2025-06-21 09:15] LABS: BASO # 0.1 10^3/uL (0.0-0.2); BASO % 0.7 % (0.0-1.0); EOS # 0.1 10^3/uL (0.0-0.5); EOS % 1.6 % (0.0-3.0); LYMPH # 0.4 10^3/uL (1.5-5.0); LYMPH % 6.2 % (24.0-44.0); MONO # 0.5 10^3/uL (0.0-0.8); MONO % 7.0 % (2.0-8.0); NEUTROPHILS # 5.8 10^3/uL (1.5-8.5); NEUTROPHILS % 83.9 % (36.0-66.0); PLATELET COUNT, AUTOMATED 171 10^3/uL (150-450)
[2025-06-21 09:51] LABS: ALT/SGPT 13.0 U/L (7.0-40); AST/SGOT 21.0 U/L (<34); CALCIUM LEVEL 8.6 MG/DL (8.3-10.6); CARBON DIOXIDE LEVEL 28.0 MMOL/L (20-31); CHLORIDE LEVEL 106.0 MMOL/L (98-107); CREATININE FOR GFR 0.99 MG/DL (0.55-1.30); GLOMERULAR FILTRATION RATE 59.5 (>39); MAGNESIUM LEVEL 1.6 MG/DL (1.8-2.4); POTASSIUM SERUM 3.6 MMOL/L (3.5-5.1); SODIUM LEVEL 145.0 MMOL/L (136-145)
[2025-06-21 10:06] VITALS: BP 112/70; O2SAT 94
[2025-06-21] MEDS: MAG SULF 1GM/100ML (MAG RUN) 100 ML IV SCH (11:02)
[2025-06-21] MEDS: FOSAPREPITANT 150 MG, VIAL 2 BAG 13MM ADAPTER 1 EACH in NS 250 ML IV ONE (11:59)
[2025-06-21] MEDS: PALONOSETRON 0.25 MG/5 ML VIAL IV SCH (12:01)
[2025-06-21] MEDS: dexAMETHasone 4 MG/ML 1 ML VIAL IV SCH (12:02)
[2025-06-21 12:06] LABS: CA19-9 TUMOR MARKER,CARBOHYDRA 3246.8 U/ML (<35.0)
[2025-06-21] MEDS: LEUCOVORIN CALCIUM IV SCH (13:06)
[2025-06-21] MEDS: D5W IV SCH ×2 (13:06→13:07)
[2025-06-21] MEDS: IRINOTECAN HYDROCHLORIDE IV SCH (13:07)
[2025-06-21] MEDS: FLUOROURACIL IV SCH (14:44)
[2025-06-21] MEDS: NS IV SCH (14:44)
[2025-06-23 12:30] VITALS: BP 122/58; O2SAT 92
[2025-06-23] MEDS: SODIUM CHLORIDE 0.9% INJ 10 ML SYR IV PRN (12:37)
[2025-06-23 13:21] LABS: CALCIUM LEVEL 8.3 MG/DL (8.3-10.6); CARBON DIOXIDE LEVEL 30.0 MMOL/L (20-31); CHLORIDE LEVEL 105.0 MMOL/L (98-107); CREATININE FOR GFR 1.27 MG/DL (0.55-1.30); GLOMERULAR FILTRATION RATE 43.8 (>39); MAGNESIUM LEVEL 2.1 MG/DL (1.8-2.4); POTASSIUM SERUM 4.0 MMOL/L (3.5-5.1); SODIUM LEVEL 145.0 MMOL/L (136-145)
[2025-06-24 08:04] VITALS: BP 129/61; O2SAT 90
[2025-06-24] MEDS: IRON SUCROSE 100 MG/5 ML VIAL IVP SCH (08:27)
[2025-06-24] MEDS: SODIUM CHLORIDE 0.9% INJ 10 ML SYR IV PRN (08:59)
[2025-06-24] MEDS: [UNRECOGNIZED DRUG - OTHER] SC ONE (08:59)
[2025-06-24 09:00] VITALS: BP 137/66; O2SAT 96
[2025-06-28 07:53] VITALS: BP 126/64; O2SAT 96
[2025-06-28 08:14] LABS: BASO # 0.1 10^3/uL (0.0-0.2); BASO % 0.8 % (0.0-1.0); EOS # 0.1 10^3/uL (0.0-0.5); EOS % 0.5 % (0.0-3.0); LYMPH # 0.6 10^3/uL (1.5-5.0); LYMPH % 3.3 % (24.0-44.0); MONO # 1.1 10^3/uL (0.0-0.8); MONO % 6.0 % (2.0-8.0); NEUTROPHILS # 15.1 10^3/uL (1.5-8.5); NEUTROPHILS % 87.0 % (36.0-66.0); PLATELET COUNT, AUTOMATED 153 10^3/uL (150-450)
[2025-06-28 08:52] LABS: CALCIUM LEVEL 7.5 MG/DL (8.3-10.6); CARBON DIOXIDE LEVEL 25.0 MMOL/L (20-31); CHLORIDE LEVEL 109.0 MMOL/L (98-107); CREATININE FOR GFR 1.09 MG/DL (0.55-1.30); GLOMERULAR FILTRATION RATE 52.7 (>39); MAGNESIUM LEVEL 1.2 MG/DL (1.8-2.4); POTASSIUM SERUM 3.1 MMOL/L (3.5-5.1); SODIUM LEVEL 147.0 MMOL/L (136-145)
[2025-06-28] MEDS: MAG SULF 1GM/100ML (MAG RUN) 100 ML IV SCH (09:48)
[2025-06-28] MEDS: KCL 10MEQ/100ML SWI (KRUN) 100 ML IV SCH (09:49)
[2025-06-28] MEDS: SODIUM CHLORIDE 0.9% INJ 10 ML SYR IV PRN (11:42)
[~2025-07-01] VITALS: Ht 160 cm; Wt 62.3 kg
[~2025-07-01 07:56] MED LIST changes: +ALBUTEROL SULFATE 2.5 MG/0.5 ML INH CONCENTRATE NEB SOLN INH STA; +D5W IV SCH; +EPINEPHrine INJ 1 MG/ML 1ML AMP IM STA; +FAMOTIDINE 20 MG/2 ML VIAL IV STA; +FOSAPREPITANT 150 MG in NS 245 ML IV SCH; +FOSAPREPITANT 150 MG, VIAL 2 BAG 13MM ADAPTER 1 EACH in NS 250 ML IV ONE; +FOSAPREPITANT 150 MG, VIAL 2 BAG 13MM ADAPTER 1 EACH in NS 250 ML IV SCH; +FOSAPREPITANT IV SCH; +KCL 10MEQ IN D5/0.45NS 1000ML 1,000 ML IV ONE; +KCL 10MEQ/100ML SWI (KRUN) 100 ML IV ONE; +KCL 20MEQ IN 100ML SWI (KRUN) 20 MEQ in IV 1 EA IV SCH; +LEUCOVORIN CALCIUM IV SCH; +MAG SULF 1GM/100ML (MAG RUN) 100 ML IV ONE; +MAG SULF 1GM/100ML (MAG RUN) 100 ML IV SCH; +NS (Normal Saline) 0.9% 1,000 ML IV ONE; +NS (Normal Saline) 0.9% 1,000 ML IV STA; +NS 500 ML IV ONE; +NS IV SCH; +OXALIPLATIN IV SCH; +PALONOSETRON 0.25 MG/5 ML VIAL IV SCH; +PEGFILGRASTIM-JMDB 6 MG/0.6 ML SYRINGE SC ONE; +PILL CUTTER 1 EACH XX ONE; +POTASSIUM CHLORIDE 10MEQ SR TABLET PO ONE; +PROCHLORPERAZINE 5MG TAB PO SCH; +SODIUM CHLORIDE 0.9% INJ 10 ML SYR IV PRN; +[UNRECOGNIZED DRUG - OTHER] SC ONE; +[UNRECOGNIZED DRUG - OTHER] SC ONE; +dexAMETHasone 4 MG/ML 1 ML VIAL IV SCH; +diphenhydrAMINE 50 MG/ML VIAL IV STA
[2025-07-01 08:05] VITALS: BP 99/56; O2SAT 98
[2025-07-01] MEDS: IRON SUCROSE 100 MG/5 ML VIAL IVP SCH (08:45)
[2025-07-01 09:23] LABS: CALCIUM LEVEL 7.9 MG/DL (8.3-10.6); CARBON DIOXIDE LEVEL 26.0 MMOL/L (20-31); CHLORIDE LEVEL 107.0 MMOL/L (98-107); CREATININE FOR GFR 1.16 MG/DL (0.55-1.30); GLOMERULAR FILTRATION RATE 48.9 (>39); MAGNESIUM LEVEL 1.5 MG/DL (1.8-2.4); POTASSIUM SERUM 2.9 MMOL/L (3.5-5.1); SODIUM LEVEL 144.0 MMOL/L (136-145)
[2025-07-01] MEDS: MAG SULF 1GM/100ML (MAG RUN) 100 ML IV SCH (10:09)
[2025-07-01] MEDS: KCL 10MEQ/100ML SWI (KRUN) 100 ML IV SCH (10:09)
[2025-07-01] MEDS: SODIUM CHLORIDE 0.9% INJ 10 ML SYR IV PRN (13:14)
[2025-07-05] MEDS ORDERED: PALONOSETRON 0.25 MG/5 ML VIAL IV SCH
[2025-07-05] MEDS ORDERED: FOSAPREPITANT 150 MG, VIAL 2 BAG 13MM ADAPTER 1 EACH in NS 250 ML IV ONE
[2025-07-05] MEDS ORDERED: dexAMETHasone 4 MG/ML 1 ML VIAL IV SCH
[2025-07-05] MEDS ORDERED: SODIUM CHLORIDE 0.9% INJ 10 ML SYR IV PRN ×2 (08:00→08:20)
[2025-07-08] MEDS ORDERED: [UNRECOGNIZED DRUG - OTHER] SC ONE
[2025-07-12] MEDS ORDERED: FOSAPREPITANT 150 MG, VIAL 2 BAG 13MM ADAPTER 1 EACH in NS 250 ML IV ONE
[2025-07-13] MEDS ORDERED: SODIUM CHLORIDE 0.9% INJ 10 ML SYR IV PRN (08:00)
[2025-07-16] MEDS ORDERED: SODIUM CHLORIDE 0.9% INJ 10 ML SYR IV PRN (08:00)
[2025-07-19] MEDS ORDERED: FOSAPREPITANT 150 MG, VIAL 2 BAG 13MM ADAPTER 1 EACH in NS 250 ML IV ONE
[2025-07-19] MEDS ORDERED: dexAMETHasone 4 MG/ML 1 ML VIAL IV SCH
[2025-07-19] MEDS ORDERED: PALONOSETRON 0.25 MG/5 ML VIAL IV SCH
[2025-07-19] MEDS ORDERED: SODIUM CHLORIDE 0.9% INJ 10 ML SYR IV PRN (08:00)
[2025-07-22] MEDS ORDERED: [UNRECOGNIZED DRUG - OTHER] SC ONE
[2025-07-22] MEDS ORDERED: SODIUM CHLORIDE 0.9% INJ 10 ML SYR IV PRN (08:00)
[2025-07-26] MEDS ORDERED: FOSAPREPITANT 150 MG, VIAL 2 BAG 13MM ADAPTER 1 EACH in NS 250 ML IV ONE
[2025-07-28] MEDS ORDERED: dexAMETHasone 4 MG/ML 1 ML VIAL IV SCH
[2025-07-28] MEDS ORDERED: PALONOSETRON 0.25 MG/5 ML VIAL IV SCH
[2025-07-28] MEDS ORDERED: FOSAPREPITANT 150 MG, VIAL 2 BAG 13MM ADAPTER 1 EACH in NS 250 ML IV ONE
[2025-07-28] MEDS ORDERED: SODIUM CHLORIDE 0.9% INJ 10 ML SYR IV PRN ×2 (08:00)
[2025-07-31] MEDS ORDERED: [UNRECOGNIZED DRUG - OTHER] SC ONE
[2025-08-04] MEDS ORDERED: FOSAPREPITANT 150 MG, VIAL 2 BAG 13MM ADAPTER 1 EACH in NS 250 ML IV ONE
[2025-08-04] MEDS ORDERED: SODIUM CHLORIDE 0.9% INJ 10 ML SYR IV PRN (08:00)
== END 2025-08-07 | disposition expired ==
LOC: M ONCM 07:56
PROVIDERS: ATTEND Internal Medicine Medical Oncology
DX: Z51.11 Encounter for antineoplastic chemotherapy (principal); C25.2 Malignant neoplasm of tail of pancreas; C34.01 Malignant neoplasm of right main bronchus; I82.890 Acute embolism and thrombosis of other specified veins; D50.9 Iron deficiency anemia, unspecified; M85.852 Other specified disorders of bone density and structure, left thigh; E11.40 Type 2 diabetes mellitus with diabetic neuropathy, unspecified; E83.42 Hypomagnesemia; E87.6 Hypokalemia; M25.511 Pain in right shoulder; Z85.41 Personal history of malignant neoplasm of cervix uteri; Z79.4 Long term (current) use of insulin; Z79.82 Long term (current) use of aspirin; Z91.81 History of falling; Z79.84 Long term (current) use of oral hypoglycemic drugs; Z79.891 Long term (current) use of opiate analgesic; Z79.899 Other long term (current) drug therapy; Z87.891 Personal history of nicotine dependence; M25.552 Pain in left hip; A04.71 Enterocolitis due to Clostridium difficile, recurrent; K57.92 Diverticulitis of intestine, part unspecified, without perforation or abscess without bleeding; E11.9 Type 2 diabetes mellitus without complications; I10 Essential (primary) hypertension; C25.9 Malignant neoplasm of pancreas, unspecified; R91.8 Other nonspecific abnormal finding of lung field; K86.9 Disease of pancreas, unspecified
CPT/HCPCS: 36415; 36430; 36591; 67159; 73552; 73590; 80048; 80053; 81001; 82270; 82378; 82607; 82728; 82746; 83010; 83520; 83550; 83615; 83735; 85025; 85049; 85055; 85610; 85730; 86301; 86850; 86900; 86901; 86920; 87086; 96360; 96361; 96365; 96366; 96367; 96368; 96372; 96375; 96411; 96413; 96415; 96416; 96417; G0463; J0640; J1100; J1453; J1642; J1756; J2469; J3475; J9190; J9201; J9206; J9263; J9264; P9016; Q5108; Q5111

== ENCOUNTER → 2025-07-02 | Outpatient (CLI) | payer MEDICARE, MEDICAID ==
[~2025-07-02] MED LIST changes: -ALBUTEROL SULFATE 2.5 MG/0.5 ML INH CONCENTRATE NEB SOLN INH STA; -D5W IV SCH; -EPINEPHrine INJ 1 MG/ML 1ML AMP IM STA; -FAMOTIDINE 20 MG/2 ML VIAL IV STA; -FOSAPREPITANT 150 MG in NS 245 ML IV SCH; -FOSAPREPITANT 150 MG, VIAL 2 BAG 13MM ADAPTER 1 EACH in NS 250 ML IV ONE; -FOSAPREPITANT 150 MG, VIAL 2 BAG 13MM ADAPTER 1 EACH in NS 250 ML IV SCH; -FOSAPREPITANT IV SCH; -KCL 10MEQ IN D5/0.45NS 1000ML 1,000 ML IV ONE; -KCL 10MEQ/100ML SWI (KRUN) 100 ML IV ONE; -KCL 20MEQ IN 100ML SWI (KRUN) 20 MEQ in IV 1 EA IV SCH; -LEUCOVORIN CALCIUM IV SCH; -MAG SULF 1GM/100ML (MAG RUN) 100 ML IV ONE; -MAG SULF 1GM/100ML (MAG RUN) 100 ML IV SCH; -NS (Normal Saline) 0.9% 1,000 ML IV ONE; -NS (Normal Saline) 0.9% 1,000 ML IV STA; -NS 500 ML IV ONE; -NS IV SCH; -OXALIPLATIN IV SCH; -PALONOSETRON 0.25 MG/5 ML VIAL IV SCH; -PEGFILGRASTIM-JMDB 6 MG/0.6 ML SYRINGE SC ONE; -PILL CUTTER 1 EACH XX ONE; -POTASSIUM CHLORIDE 10MEQ SR TABLET PO ONE; -PROCHLORPERAZINE 5MG TAB PO SCH; -SODIUM CHLORIDE 0.9% INJ 10 ML SYR IV PRN; -[UNRECOGNIZED DRUG - OTHER] SC ONE; -[UNRECOGNIZED DRUG - OTHER] SC ONE; -dexAMETHasone 4 MG/ML 1 ML VIAL IV SCH; -diphenhydrAMINE 50 MG/ML VIAL IV STA
== END ==
LOC: M ONCR 10:14
PROVIDERS: ATTEND General Practice
DX: C25.2 Malignant neoplasm of tail of pancreas (principal); C78.01 Secondary malignant neoplasm of right lung; C78.02 Secondary malignant neoplasm of left lung; Z92.3 Personal history of irradiation; Z87.891 Personal history of nicotine dependence; Z88.1 Allergy status to other antibiotic agents; Z88.2 Allergy status to sulfonamides; Z88.5 Allergy status to narcotic agent; Z79.891 Long term (current) use of opiate analgesic; Z79.01 Long term (current) use of anticoagulants; Z79.4 Long term (current) use of insulin; Z79.82 Long term (current) use of aspirin; Z79.899 Other long term (current) drug therapy